=== PATIENT | male | born 1935 | race Caucasian/White ===

== ENCOUNTER → 2016-06-15 | Outpatient (CLI) | payer OTHER ==
[~2016-06-15] MED LIST: ACET-1222 PO; ACET-1311 PO; ASPI81TA28 PO; CARV12.52 PO; CARV25TA2 PO; CETI10TA84 PO; CNT PO; CYM20 PO; DEXT30TA7 PO; DULO-24 PO; FENO145T26 PO; FINA5TAB PO; IMD/2 PO; KETO200T PO; LEVO-366 PO; LTRCR30 TOP; MULTTAB58 PO; NEOMOIN2 TOP; NTRGSL/4 UT; PRD10 PO; SDMC1 PO; SERT50TA PO; TAMS0.4C38 PO; TRAM-10 PO; ULT50X PO; VTMD1000 PO; WARF1TAB6 PO; WARF2TAB8 PO; WARF3TAB PO; [UNRECOGNIZED DRUG - CODE] TOP
[2016-06-15 15:35] LABS: URINE APPEARANCE TURBID (CLEAR); URINE BILIRUBIN NEG (NEG); URINE COLOR YELLOW; URINE EPITHELIAL CELL AUTO 20-30 /lpf (0-5); URINE NITRITE NEG (NEG); URINE PH 5.5 (4.5-7.5); URINE SPECIFIC GRAVITY 1.015 (1.000-1.030); UROBILINOGEN NEG (NEG)
[2016-06-15 15:40] LABS: MANUAL MICROSCOPIC REQUIRED? NO; REVIEW REQ? YES
== END | disposition home or self-care (01) ==
LOC: C.LABOUTLO 14:11
PROVIDERS: ATTEND Internal Medicine Critical Care Medicine
DX: R41.0 Disorientation, unspecified (principal)

== ENCOUNTER → 2016-06-19 | Outpatient (CLI) | payer OTHER | END | disposition home or self-care (01) | LOC: C.LABOUTLO 09:28 | PROVIDERS: ATTEND Internal Medicine Critical Care Medicine | DX: R41.82 Altered mental status, unspecified (principal) ==

== ENCOUNTER → 2016-06-20 | Outpatient (CLI) | payer OTHER ==
[2016-06-20 10:32] LABS: BASO % 0.5 %; BASO ABS # 0.03 K/uL (0-0.2); COMPLETE YES; EOS % 4.9 %; IG% 0.2 %; LYMPH % 33.8 %; LYMPH ABS # 2.19 K/uL (1.2-3.4); MEAN CELL VOLUME 87.2 fL (80-100); MEAN CORPUSCULAR HEMOGLOBIN 28.8 pg (25-34); MEAN PLATELET VOLUME 10.4 fL (7.4-10.4); MONO % 13.4 %; NEUT % 47.2 %; PLATELET COUNT 309 K/uL (130-400); RED BLOOD COUNT 3.44 M/uL (4.7-6.1); WHITE BLOOD COUNT 6.48 K/uL (4.8-10.8)
[2016-06-20 10:39] LABS: BLOOD UREA NITROGEN 30 mg/dl (7-18); BUN/CREATININE RATIO 18.7 (10-20); CALCIUM 8.4 mg/dl (8.5-10.1); CARBON DIOXIDE 22 mmol/L (21-32); CHLORIDE 102 mmol/L (98-107); GLUCOSE 88 mg/dl (70-99); POTASSIUM 4.1 mmol/L (3.5-5.1); SODIUM 134 mmol/L (136-145)
[2016-06-20 10:49] LABS: PROTHROMBIN TIME (PATIENT) 58.3 SECONDS (9.0-12.0)
[2016-06-20 11:28] LABS: INR 5.1 (0.9-1.1)
--- NOTE | 2016-06-26 13:58 | CODING QUERY NO DIAGNOSIS ---
TREATMENT RENDERED WITHOUT A DIAGNOSIS 33 To promote full compliance with coding requirements relating to patient care, physician participation is requested in all cases of building supervisor uncertainty. Please assist us with providing a diagnosis/symptom for the test(s) below: A diagnosis/symptom was not documented on your Order. A valid diagnosis/symptom is required to bill all insurances. Please remember that we are unable to code a diagnosis of rule out, probable, possible, questionable, or suspected. DOS 06/20/16 Tests that require a diagnosis: * PARTIAL RENAL PROFILE DIAGNOSIS: * CBC W/AUTO DIFF DIAGNOSIS: * PT/INR DIAGNOSIS: Provider Signature: Date: Thank you Cammy Badillo [employer] [facility] Once completed, please kindly fax back to [phone] For questions please call [phone]
== END | disposition home or self-care (01) ==
LOC: C.LABOUTLO 09:58
PROVIDERS: ATTEND Internal Medicine Critical Care Medicine
DX: Z00.00 Encounter for general adult medical examination without abnormal findings (principal)

== ENCOUNTER → 2016-06-26 | Outpatient (CLI) | payer OTHER ==
[2016-06-26 10:20] LABS: INR 3.1 (0.9-1.1)
--- NOTE | 2016-06-29 11:23 | CODING QUERY NO DIAGNOSIS ---
: 1933 TREATMENT RENDERED WITHOUT A DIAGNOSIS To promote full compliance with coding requirements relating to patient care, physician participation is requested in all cases of outreach associate uncertainty. Please assist us with providing a diagnosis/symptom for the test(s) below: A diagnosis/symptom was not documented on your Order. A valid diagnosis/symptom is required to bill all insurances. Please remember that we are unable to code a diagnosis of rule out, probable, possible, questionable, or suspected. Tests that require a diagnosis: * PROTHROMBIN TIME PRO DOS: 06/26/16 DIAGNOSIS: Provider Signature: Date: Thank you Tatiana Woodard [employer] [facility] Once completed, please kindly fax back to [phone] For questions please call [phone]
== END | disposition home or self-care (01) ==
LOC: C.LABOUTLO 09:44
PROVIDERS: ATTEND Internal Medicine Critical Care Medicine
DX: Z86.718 Personal history of other venous thrombosis and embolism (principal)

== ENCOUNTER → 2016-06-28 | Outpatient (CLI) | payer OTHER ==
--- NOTE | 2016-07-02 07:16 | CODING QUERY NO DIAGNOSIS ---
: 1935 TREATMENT RENDERED WITHOUT A DIAGNOSIS To promote full compliance with coding requirements relating to patient care, physician participation is requested in all cases of wage analyst uncertainty. Please assist us with providing a diagnosis/symptom for the test(s) below: A diagnosis/symptom was not documented on your Order. A valid diagnosis/symptom is required to bill all insurances. Please remember that we are unable to code a diagnosis of rule out, probable, possible, questionable, or suspected. Tests that require a diagnosis: * URINE CULTURE CLEAN DOS: 06/28/16 DIAGNOSIS: Provider Signature: Date: Thank you Tatiana Woodard [employer] Information Management Once completed, please kindly fax back to [phone] For questions please call [phone]
== END | disposition home or self-care (01) ==
LOC: C.LABOUTLO 14:33
PROVIDERS: ATTEND Internal Medicine Critical Care Medicine
DX: R30.0 Dysuria (principal)

== ENCOUNTER → 2016-07-02 | Outpatient (CLI) | payer OTHER ==
[2016-07-02 10:05] LABS: PROTHROMBIN TIME (PATIENT) 22.3 SECONDS (9.0-12.0)
--- NOTE | 2016-07-05 13:34 | CODING QUERY NO DIAGNOSIS ---
TREATMENT RENDERED WITHOUT A DIAGNOSIS To promote full compliance with coding requirements relating to patient care, physician participation is requested in all cases of associate director of nursing uncertainty. Please assist us with providing a diagnosis/symptom for the test(s) below: A diagnosis/symptom was not documented on your Order. A valid diagnosis/symptom is required to bill all insurances. Please remember that we are unable to code a diagnosis of rule out, probable, possible, questionable, or suspected. Tests that require a diagnosis: DOS 07/02 * PTINR DIAGNOSIS: Provider Signature: Date: Thank you Zoë Caraballo [facility] Information [facility] Once completed, please kindly fax back to [phone] For questions please call [phone]
== END | disposition home or self-care (01) ==
LOC: C.LABOUTLO 09:25
PROVIDERS: ATTEND Internal Medicine Critical Care Medicine
DX: Z86.718 Personal history of other venous thrombosis and embolism (principal)

== ENCOUNTER → 2016-07-16 | Outpatient (CLI) | payer OTHER ==
[2016-07-16 09:52] LABS: BASO % 1.1 %; BASO ABS # 0.07 K/uL (0-0.2); COMPLETE YES; HEMATOCRIT 29.5 % (42-52); IG% 0.2 %; LYMPH % 35.7 %; LYMPH ABS # 2.24 K/uL (1.2-3.4); MEAN CELL VOLUME 88.9 fL (80-100); MEAN CORPUSCULAR HEMOGLOBIN 29.2 pg (25-34); MEAN CORPUSCULAR HGB CONC 32.9 g/dl (32-36); MEAN PLATELET VOLUME 10.8 fL (7.4-10.4); MONO % 10.7 %; NEUT % 45.3 %; PLATELET COUNT 273 K/uL (130-400); RED BLOOD COUNT 3.32 M/uL (4.7-6.1); WHITE BLOOD COUNT 6.27 K/uL (4.8-10.8)
[2016-07-16 10:14] LABS: BLOOD UREA NITROGEN 18 mg/dl (7-18); BUN/CREATININE RATIO 14.6 (10-20); CALCIUM 8.4 mg/dl (8.5-10.1); CARBON DIOXIDE 23 mmol/L (21-32); CHLORIDE 108 mmol/L (98-107); GLUCOSE 84 mg/dl (70-99); POTASSIUM 4.3 mmol/L (3.5-5.1); SODIUM 140 mmol/L (136-145)
[2016-07-16 10:17] LABS: TOTAL IRON BINDING CAPACITY 293 mcg/dl (250-450)
[2016-07-16 10:50] LABS: URINE APPEARANCE CLEAR (CLEAR); URINE BILIRUBIN NEG (NEG); URINE COLOR YELLOW; URINE NITRITE NEG (NEG); URINE PH 5.5 (4.5-7.5); URINE SPECIFIC GRAVITY 1.015 (1.000-1.030); UROBILINOGEN NEG (NEG)
[2016-07-16 11:00] LABS: MANUAL MICROSCOPIC REQUIRED? NO; REVIEW REQ? NO
[2016-07-16 11:22] LABS: URINE PROTIEN/CREAT RATIO 0.2 (0-0.2); URINE TOTAL PROTEIN 14.5 mg/dl (0-11.9)
== END | disposition home or self-care (01) ==
LOC: C.LABOUTLO 08:59
PROVIDERS: ATTEND Internal Medicine Nephrology
DX: N39.0 Urinary tract infection, site not specified (principal); I10 Essential (primary) hypertension; N18.3 Chronic kidney disease, stage 3 (moderate); E87.1 Hypo-osmolality and hyponatremia

== ENCOUNTER → 2016-07-24 | Outpatient (CLI) | payer OTHER ==
[2016-07-24 10:29] LABS: INR 1.5 (0.9-1.1); PROTHROMBIN TIME (PATIENT) 15.8 SECONDS (9.0-12.0)
== END | disposition home or self-care (01) ==
LOC: C.LABOUTLO 09:34
PROVIDERS: ATTEND Internal Medicine Critical Care Medicine
DX: I51.9 Heart disease, unspecified (principal)

== ENCOUNTER → 2016-07-31 | Outpatient (CLI) | payer OTHER ==
[2016-07-31 10:01] LABS: BLOOD UREA NITROGEN 22 mg/dl (7-18); BUN/CREATININE RATIO 15.6 (10-20); CALCIUM 8.5 mg/dl (8.5-10.1); CARBON DIOXIDE 25 mmol/L (21-32); CHLORIDE 104 mmol/L (98-107); GLUCOSE 88 mg/dl (70-99); POTASSIUM 4.3 mmol/L (3.5-5.1); SODIUM 138 mmol/L (136-145)
[2016-07-31 10:03] LABS: INR 1.5 (0.9-1.1); PROTHROMBIN TIME (PATIENT) 16.4 SECONDS (9.0-12.0)
== END | disposition home or self-care (01) ==
LOC: C.LABOUTLO 09:16
PROVIDERS: ATTEND Internal Medicine Critical Care Medicine
DX: I51.9 Heart disease, unspecified (principal)

== ENCOUNTER → 2016-08-09 | Outpatient (CLI) | payer OTHER ==
[2016-08-09 10:15] LABS: INR 2.4 (0.9-1.1); PROTHROMBIN TIME (PATIENT) 26.8 SECONDS (9.0-12.0)
== END ==
LOC: C.LABOUTLO 09:21
PROVIDERS: ATTEND Nurse Practitioner
DX: I48.91 Unspecified atrial fibrillation (principal)

== ENCOUNTER → 2016-08-22 | Outpatient (CLI) | payer OTHER ==
[2016-08-22 10:32] LABS: INR 3.3 (0.9-1.1); PROTHROMBIN TIME (PATIENT) 37.1 SECONDS (9.0-12.0)
== END | disposition home or self-care (01) ==
LOC: C.LABOUTLO 10:07
PROVIDERS: ATTEND Internal Medicine Critical Care Medicine
DX: I48.91 Unspecified atrial fibrillation (principal)

== ENCOUNTER → 2016-08-28 | Outpatient (CLI) | payer OTHER ==
[~2016-08-28] MED LIST changes: -NEOMOIN2 TOP; +NEOMOIN3 TOP
[2016-08-28 14:20] LABS: URINE APPEARANCE CLEAR (CLEAR); URINE BILIRUBIN NEG (NEG); URINE COLOR YELLOW; URINE NITRITE NEG (NEG); URINE SPECIFIC GRAVITY 1.016 (1.000-1.030); UROBILINOGEN NEG (NEG)
[2016-08-28 14:31] LABS: MANUAL MICROSCOPIC REQUIRED? NO; REVIEW REQ? NO
--- NOTE | 2016-08-30 12:34 | CODING QUERY NO DIAGNOSIS ---
TREATMENT RENDERED WITHOUT A DIAGNOSIS To promote full compliance with coding requirements relating to patient care, physician participation is requested in all cases of wire straightener uncertainty. Please assist us with providing a diagnosis/symptom for the test(s) below: A diagnosis/symptom was not documented on your Order. A valid diagnosis/symptom is required to bill all insurances. Please remember that we are unable to code a diagnosis of rule out, probable, possible, questionable, or suspected. Tests that require a diagnosis: DOS 08/28 * Urine Culture DIAGNOSIS: Provider Signature: Date: Thank you Zoë Caraballo [facility] Information Management Once completed, please kindly fax back to [phone] For questions please call [phone]
== END | disposition home or self-care (01) ==
LOC: C.LABOUTLO 14:01
DX: Z76.89 Persons encountering health services in other specified circumstances (principal)

== ENCOUNTER → 2016-09-06 | Outpatient (CLI) | payer OTHER ==
[~2016-09-06] MED LIST changes: +NEOMOIN2 TOP; -NEOMOIN3 TOP
[2016-09-06 10:34] LABS: INR 2.5 (0.9-1.1); PROTHROMBIN TIME (PATIENT) 27.4 SECONDS (9.0-12.0)
== END | disposition home or self-care (01) ==
LOC: C.LABOUTLO 09:06
PROVIDERS: ATTEND Internal Medicine Critical Care Medicine
DX: I48.91 Unspecified atrial fibrillation (principal)

== ENCOUNTER → 2016-09-13 | Outpatient (CLI) | payer OTHER ==
[~2016-09-13] MED LIST changes: -NEOMOIN2 TOP; +NEOMOIN3 TOP
[2016-09-13 09:33] LABS: HEMATOCRIT 32.9 % (42-52); MEAN CELL VOLUME 90.1 fL (80-100); MEAN CORPUSCULAR HEMOGLOBIN 30.4 pg (25-34); MEAN CORPUSCULAR HGB CONC 33.7 g/dl (32-36); MEAN PLATELET VOLUME 10.6 fL (7.4-10.4); PLATELET COUNT 261 K/uL (130-400); RED BLOOD COUNT 3.65 M/uL (4.7-6.1); WHITE BLOOD COUNT 4.75 K/uL (4.8-10.8)
[2016-09-13 09:43] LABS: BLOOD UREA NITROGEN 35 mg/dl (7-18); BUN/CREATININE RATIO 22.1 (10-20); CALCIUM 8.9 mg/dl (8.5-10.1); CARBON DIOXIDE 25 mmol/L (21-32); CHLORIDE 105 mmol/L (98-107); GLUCOSE 89 mg/dl (70-99); POTASSIUM 5.2 mmol/L (3.5-5.1); SODIUM 136 mmol/L (136-145)
== END | disposition home or self-care (01) ==
LOC: C.LABOUTLO 09:13
PROVIDERS: ATTEND Internal Medicine Cardiovascular Disease
DX: D64.9 Anemia, unspecified (principal); N28.9 Disorder of kidney and ureter, unspecified

== ENCOUNTER → 2016-10-08 | Outpatient (CLI) | payer OTHER ==
[2016-10-08 11:35] LABS: INR 2.5 (0.9-1.1); PROTHROMBIN TIME (PATIENT) 28.2 SECONDS (9.0-12.0)
== END ==
LOC: C.LABOUTLO 10:32
PROVIDERS: ATTEND Internal Medicine Critical Care Medicine
DX: I48.91 Unspecified atrial fibrillation (principal)

== ENCOUNTER → 2016-11-20 | Outpatient (CLI) | payer OTHER ==
[2016-11-20 11:06] LABS: INR 1.4 (0.9-1.1); PROTHROMBIN TIME (PATIENT) 14.9 SECONDS (9.0-12.0)
== END | disposition home or self-care (01) ==
LOC: C.LABOUTLO 09:22
PROVIDERS: ATTEND Internal Medicine
DX: I48.91 Unspecified atrial fibrillation (principal)

== ENCOUNTER → 2016-11-27 | Outpatient (CLI) | payer OTHER ==
[~2016-11-27] MED LIST changes: +NEOMOIN2 TOP; -NEOMOIN3 TOP
[2016-11-27 11:08] LABS: INR 1.7 (0.9-1.1); PROTHROMBIN TIME (PATIENT) 18.2 SECONDS (9.0-12.0)
== END | disposition home or self-care (01) ==
LOC: C.LABOUTLO 09:26
PROVIDERS: ATTEND Internal Medicine Cardiovascular Disease
DX: I48.91 Unspecified atrial fibrillation (principal)

== ENCOUNTER → 2016-12-03 | Outpatient (CLI) | payer OTHER ==
[~2016-12-03] MED LIST changes: -NEOMOIN2 TOP; +NEOMOIN3 TOP
[2016-12-03 11:00] LABS: INR 1.9 (0.9-1.1); PROTHROMBIN TIME (PATIENT) 21.3 SECONDS (9.0-12.0)
== END | disposition home or self-care (01) ==
LOC: C.LABOUTLO 07:58
PROVIDERS: ATTEND Internal Medicine Cardiovascular Disease
DX: I48.91 Unspecified atrial fibrillation (principal); Z79.01 Long term (current) use of anticoagulants

== ENCOUNTER → 2016-12-13 | Outpatient (CLI) | payer OTHER ==
[~2016-12-13] MED LIST changes: +NEOMOIN2 TOP; -NEOMOIN3 TOP
[2016-12-13 09:29] LABS: INR 2.2 (0.9-1.1); PROTHROMBIN TIME (PATIENT) 24.1 SECONDS (9.0-12.0)
== END | disposition home or self-care (01) ==
LOC: C.LABOUTLO 08:21
PROVIDERS: ATTEND Internal Medicine Cardiovascular Disease
DX: I48.91 Unspecified atrial fibrillation (principal)

== ENCOUNTER → 2016-12-24 | Outpatient (CLI) | payer OTHER ==
[2016-12-24 09:36] LABS: INR 3.3 (0.9-1.1); PROTHROMBIN TIME (PATIENT) 37.6 SECONDS (9.0-12.0)
== END | disposition home or self-care (01) ==
LOC: C.LABOUTLO 08:36
PROVIDERS: ATTEND Internal Medicine Cardiovascular Disease
DX: I48.91 Unspecified atrial fibrillation (principal)

== ENCOUNTER → 2017-01-03 | Outpatient (CLI) | payer OTHER ==
[2017-01-03 09:27] LABS: INR 2.9 (0.9-1.1); PROTHROMBIN TIME (PATIENT) 32.8 SECONDS (9.0-12.0)
== END | disposition home or self-care (01) ==
LOC: C.LABOUTLO 08:46
PROVIDERS: ATTEND Internal Medicine Cardiovascular Disease
DX: Z51.81 Encounter for therapeutic drug level monitoring (principal); Z79.01 Long term (current) use of anticoagulants; I48.91 Unspecified atrial fibrillation

== ENCOUNTER → 2017-01-16 | Outpatient (CLI) | payer OTHER ==
[2017-01-16 10:37] LABS: INR 2.7 (0.9-1.1); PROTHROMBIN TIME (PATIENT) 30.1 SECONDS (9.0-12.0)
== END | disposition home or self-care (01) ==
LOC: C.LABOUTLO 09:27
PROVIDERS: ATTEND Internal Medicine Cardiovascular Disease
DX: I48.91 Unspecified atrial fibrillation (principal)

== ENCOUNTER → 2017-02-05 | Outpatient (CLI) | payer OTHER ==
[2017-02-05 13:14] LABS: INR 2.6 (0.9-1.1); PROTHROMBIN TIME (PATIENT) 28.8 SECONDS (9.0-12.0)
== END | disposition home or self-care (01) ==
LOC: C.LABOUTLO 12:42
PROVIDERS: ATTEND Internal Medicine
DX: I48.91 Unspecified atrial fibrillation (principal)

== ENCOUNTER 2017-02-20 09:53 | Emergency (ER) | payer OTHER ==
[~2017-02-20] VITALS: Ht 172.7 cm; Wt 87.0 kg
[~2017-02-20 09:53] MED LIST changes: -CARV12.52 PO; -DEXT30TA7 PO; -DULO-24 PO; -LEVO-366 PO; -MULTTAB58 PO; -WARF1TAB6 PO; -WARF2TAB8 PO
[2017-02-20 09:58] VITALS: TEMP 36.9; Ht 172.7 cm; Wt 87.0 kg
[2017-02-20 10:22] VITALS: O2SAT 91
[2017-02-20 10:31] LABS: BASO % 1.1 %; BASO ABS # 0.06 K/uL (0-0.2); COMPLETE YES; EOS % 12.8 %; HEMATOCRIT 40.1 % (42-52); IG% 0.2 %; LYMPH % 26.7 %; MEAN CELL VOLUME 88.7 fL (80-100); MEAN CORPUSCULAR HEMOGLOBIN 30.1 pg (25-34); MEAN CORPUSCULAR HGB CONC 33.9 g/dl (32-36); MEAN PLATELET VOLUME 10.1 fL (7.4-10.4); MONO % 9.7 %; NEUT % 49.5 %; PLATELET COUNT 280 K/uL (130-400); RED BLOOD COUNT 4.52 M/uL (4.7-6.1); WHITE BLOOD COUNT 5.24 K/uL (4.8-10.8)
[2017-02-20 10:51] LABS: BUN/CREATININE RATIO 17.1 (10-20); CALCIUM 8.7 mg/dl (8.5-10.1); CREATININE 1.8 mg/dl (0.60-1.40); POTASSIUM 4.3 mmol/L (3.5-5.1)
[2017-02-20 10:54] LABS: ALB/GLOB RATIO 0.8 (0.9-2)
[2017-02-20] MEDS ORDERED: SODIUM CHLORIDE 0.9% 500ML 500 ML IV STA (11:06)
[2017-02-20] MEDS ORDERED: WARF2TAB8 PO (11:25)
[2017-02-20] MEDS ORDERED: CARV12.52 PO ×2 (11:25)
[2017-02-20] MEDS ORDERED: MULTTAB58 PO (11:25)
[2017-02-20] MEDS ORDERED: WARF1TAB6 PO (11:25)
[2017-02-20] MEDS ORDERED: DEXT30TA7 PO (11:25)
--- NOTE | 2017-02-20 11:34 | DIAGNOSTIC IMAGING REPORT ---
CHEST 2 VIEWS ROUTINE CLINICAL HISTORY: weakness, cough COMPARISON STUDY: No previous studies for comparison. FINDINGS: The heart is normal in size. There is no failure. There is no focal pulmonary consolidation. Coronary artery calcifications are suspected. There are few scattered calcified granulomata present. No pleural effusions are evident.[ IMPRESSION: No active disease in the chest. Electronically signed by: Aman Ceja M.D. 02/20/2017 11:32 AM Dictated Date/Time: 02/20/2017 11:32 AM
[2017-02-20 11:43] LABS: MAGNESIUM 1.9 mg/dl (1.8-2.4)
[2017-02-20] MEDS ORDERED: CEFTRIAXONE SOD INJ 1 GM ADDVIAL IV STA (12:14)
--- NOTE | 2017-02-20 12:22 | EMERGENCY ROOM VISIT NOTE ---
History Report prepared by Moe: Marii Plunkett Under the Supervision of: Dr. Georgi Carlson M.D. First contact with patient: 10:59 Chief Complaint: RESPIRATORY PROBLEMS Stated Complaint: RESPIRATORY PROBLEMS Nursing Triage Summary: triage note: Pt resides at [facility]. pt reports increased fatigue. pt reports generalized weakness and cough x 4 days. son reports "he had a low energy spell about 7 years ago where he ended up having a blockage issue and needed a stent." History of Present Illness The patient is an 81 year old white male with a past medical history of CKD, chronic bronchitis, 2 stents who presents to the ED with a cc of persistent generalized weakness beginning 4 days ago. He notes that he felt this way prior to having his 2nd stent placed 7 years ago. Positive fatigue, productive cough. Negative chest pain, SOB, leg swelling, nausea, vomiting, urinary symptoms. He denies any recent tick bites. He follows with Dr. Lim of cardiology. He denies any sick contacts or recent antibiotics. Source of History: patient Onset: 4 days ago Position: other (global) Quality: other (weakness) Timing: other (persistent) Associated Symptoms: + cough, + fatigue, No chest pain, No SOB, No nausea, No vomiting, No urinary symptoms Review of Systems See HPI for pertinent positives and negatives. A total of ten systems were reviewed and were otherwise negative. Past Medical & Surgical Medical Problems: (1) Chronic kidney disease (2) H/O blood clots (3) Hip fracture (4) Prostate cancer Surgical Problems: (1) History of coronary artery stent placement Family History Patient reports no known family medical history. Social History Smoking Status: Never Smoker Drug Use: none Marital Status: Housing Status: alf Occupation Status: retired Current/Historical Medications Scheduled Aspirin (Aspirin Ec), 81 MG PO DAILY Carvedilol (Coreg), 6.25 MG PO QPM Carvedilol (Coreg), 12.5 MG PO QAM Cetirizine (Zyrtec), 10 MG PO DAILY Cholecalciferol (Vitamin D3), 2,000 INTER.UNIT PO QAM Dextromethorphan-Guaifenesin (Mucinex Dm), 1 TAB PO Q12 Duloxetine HCl (Duloxetine HCl), 20 MG PO QAM Fenofibrate (Tricor), 145 MG PO DAILY Finasteride (Proscar), 5 MG PO QAM Ketoconazole (Nizoral), 200 MG PO TID Levofloxacin (Levaquin), 750 MG PO DAILY Multiple Vitamin (Multivitamin), 1 TAB PO DAILY Tamsulosin Hcl (Flomax), 0.4 MG PO HS Warfarin Sod (Jantoven), 1 MG PO 3XWK Warfarin Sod (Jantoven), 2 MG PO DAILY Allergies Coded Allergies: No Known Allergies (Unverified , 03/28/16) Physical Exam Vital Signs Date Time Temp Pulse Resp B/P (MAP) Pulse Ox O2 Delivery O2 Flow Rate FiO2 02/20/17 16:20 55 20 167/80 96 02/20/17 14:23 51 96 02/20/17 13:53 54 25 93 02/20/17 13:36 51 02/20/17 13:23 63 18 90 02/20/17 13:01 167/80 02/20/17 12:53 52 95 02/20/17 12:32 219/120 02/20/17 12:07 139/81 02/20/17 12:07 56 20 139/81 96 Room Air 02/20/17 11:10 55 20 130/71 92 Room Air 02/20/17 11:01 130/71 02/20/17 10:53 56 19 91 02/20/17 10:31 132/66 02/20/17 10:23 61 19 91 02/20/17 10:22 91 Room Air 02/20/17 10:21 61 02/20/17 10:14 131/68 02/20/17 09:58 36.9 65 20 112/66 96 Room Air 02/20/17 09:57 92 Room Air Physical Exam GENERAL: Awake, alert, well-appearing, NAD HENT: Normocephalic, atraumatic. EYES: Normal conjunctiva. Sclera non-icteric. NECK: Supple. No nuchal rigidity. FROM. RESPIRATORY: CTAB, no rhonchi, wheezing, crackles CARDIAC: RRR, no MRG ABDOMEN: Soft, NTND, BS+ MSK: No chest wall TTP, no LE edema NEURO: GCS 15, CN 2-12 intact, moves all 4s on command SKIN: No rash or jaundice noted. Medical Decision & Procedures ER Provider Diagnostic Interpretation: Radiology results as stated below per my review and radiologist interpretation: CHEST 2 VIEWS ROUTINE CLINICAL HISTORY: weakness, cough COMPARISON STUDY: No previous studies for comparison. FINDINGS: The heart is normal in size. There is no failure. There is no focal pulmonary consolidation. Coronary artery calcifications are suspected. There are few scattered calcified granulomata present. No pleural effusions are evident.[ IMPRESSION: No active disease in the chest. Electronically signed by: Aman Ceja M.D. 02/20/2017 11:32 AM Dictated Date/Time: 02/20/2017 11:32 AM Laboratory Results 02/20/17 10:15 Red Blood Count 4.52, Mean Corpuscular Volume 88.7, Mean Corpuscular Hemoglobin 30.1, Mean Corpuscular Hemoglobin Concent 33.9, Mean Platelet Volume 10.1, Neutrophils (%) (Auto) 49.5, Lymphocytes (%) (Auto) 26.7, Monocytes (%) (Auto) 9.7, Eosinophils (%) (Auto) 12.8, Basophils (%) (Auto) 1.1, Neutrophils # (Auto ) 2.59, Lymphocytes # (Auto) 1.40, Monocytes # (Auto) 0.51, Eosinophils # (Auto ) 0.67, Basophils # (Auto) 0.06 02/20/17 10:15 Test 02/20/17 10:15 02/20/17 12:30 02/20/17 13:02 White Blood Count 5.24 K/uL (4.8-10.8) Red Blood Count 4.52 M/uL (4.7-6.1) Hemoglobin 13.6 g/dL (14.0-18.0) Hematocrit 40.1 % (42-52) Mean Corpuscular Volume 88.7 fL (80-100) Mean Corpuscular Hemoglobin 30.1 pg (25-34) Mean Corpuscular Hemoglobin Concent 33.9 g/dl (32-36) Platelet Count 280 K/uL (130-400) Mean Platelet Volume 10.1 fL (7.4-10.4) Neutrophils (%) (Auto) 49.5 % Lymphocytes (%) (Auto) 26.7 % Monocytes (%) (Auto) 9.7 % Eosinophils (%) (Auto) 12.8 % Basophils (%) (Auto) 1.1 % Neutrophils # (Auto) 2.59 K/uL (1.4-6.5) Lymphocytes # (Auto) 1.40 K/uL (1.2-3.4) Monocytes # (Auto) 0.51 K/uL (0.11-0.59) Eosinophils # (Auto) 0.67 K/uL (0-0.5) Basophils # (Auto) 0.06 K/uL (0-0.2) RDW Standard Deviation 46.8 fL (36.4-46.3) RDW Coefficient of Variation 14.3 % (11.5-14.5) Immature Granulocyte % (Auto) 0.2 % Immature Granulocyte # (Auto) 0.01 K/uL (0.00-0.02) Anion Gap 7.0 mmol/L (3-11) Est Creatinine Clear Calc Drug Dose 33.4 ml/min Estimated GFR () 39.5 Estimated GFR (Non- 34.0 BUN/Creatinine Ratio 17.1 (10-20) Calcium Level 8.7 mg/dl (8.5-10.1) Phosphorus Level 3.0 mg/dl (2.5-4.9) Magnesium Level 1.9 mg/dl (1.8-2.4) Total Bilirubin 0.6 mg/dl (0.2-1) Aspartate Amino Transf (AST/SGOT) 113 U/L (15-37) Alanine Aminotransferase (ALT/SGPT) 73 U/L (12-78) Alkaline Phosphatase 119 U/L (45-117) Troponin I < 0.015 ng/ml (0-0.045) Total Protein 7.2 gm/dl (6.4-8.2) Albumin 3.1 gm/dl (3.4-5.0) Globulin 4.1 gm/dl (2.5-4.0) Albumin/Globulin Ratio 0.8 (0.9-2) Thyroid Stimulating Hormone (TSH) 2.080 uIu/ml (0.300-4.500) Urine Color DK YELLOW Urine Appearance CLEAR (CLEAR) Urine pH 5.0 (4.5-7.5) Urine Specific [place] 1.017 (1.000-1.030) Urine Protein NEG (NEG) Urine Glucose (UA) NEG (NEG) Urine Ketones NEG (NEG) Urine Occult Blood NEG (NEG) Urine Nitrite NEG (NEG) Urine Bilirubin NEG (NEG) Urine Urobilinogen NEG (NEG) Urine Leukocyte Esterase TRACE (NEG) Urine WBC (Auto) 5-10 /hpf (0-5) Urine RBC (Auto) 0-4 /hpf (0-4) Urine Hyaline Casts (Auto) 1-5 /lpf (0-5) Urine Epithelial Cells (Auto) 10-20 /lpf (0-5) Urine Bacteria (Auto) NEG (NEG) Prothrombin Time > 100.0 SECONDS Prothromb Time International Ratio > 8.0 (0.9-1.1) Activated Partial Thromboplast Time 76.2 SECONDS (21.0-31.0) Partial Thromboplastin Ratio 2.9 Laboratory results reviewed by me Medications Administered Medications (Trade) Dose Ordered Sig/Ashley Route Start Time Stop Time Status Last Admin Dose Admin Sodium Chloride 500 ml @ 500 mls/hr Q1H STAT IV 02/20/17 11:06 02/20/17 12:05 DC 02/20/17 11:06 500 MLS/HR Phytonadione (Mephyton Tab) 2.5 mg NOW STAT PO 02/20/17 14:01 02/20/17 14:02 DC 02/20/17 14:27 2.5 MG Levofloxacin (Levaquin Tab) 750 mg ONE STAT PO 02/20/17 15:17 02/20/17 15:18 DC 02/20/17 15:47 750 MG ECG Indication: weakness Rate (beats per minute): 60 Rhythm: sinus with SA Findings: 1st degree AV block, other (normal QRS and QTC, questionable T wave flattening in lead 3, no other STS changes or TWI) Comparison ECG Date: no prior available ED Course 1113: The patient was evaluated in room B4A. A complete history and physical exam was performed. 1332: I reevaluated the patient. I updated them on the results. 1355: I discussed the patient's case with Dr. Sparks, [facility] cardiology. He is in agreement with the plan. 1412: I reevaluated the patient. I updated him on the results. 1520: I reevaluated the patient. I discussed results and discharge instructions : he verbalized understanding and agreement. The patient is ready for discharge. Medical Decision Differential diagnosis: Etiologies such as metabolic, infection, hypo/hyperglycemia, electrolyte abnormalities, cardiac sources, intracerebral event, toxicologic, neurologic, as well as others were entertained. The patient is an 81 year old white male with a past medical history of CKD, chronic bronchitis, 2 stents who presents to the ED with a cc of persistent generalized weakness beginning 4 days ago. Patient was seen and evaluated at the bedside. Patient has had some chronic cough with productive sputum. Patient does take blood pain medications for blood clots in the past. Patient is a patient of Dr. Lim. Patient had blood work that was completed which showed that he had good platelet Counselor hit elevated INR PTT and PT. Patient did have a recent change in that he is having his Coumadin checked monthly. Patient was given 2 half milligrams by mouth vitamin K after speaking with Dr. Sparks part of Dr. Lim's cardiology group. Rest the patient's blood work is fairly unremarkable. Patient's UA while did have some bacteria is likely a contaminant given the epithelial cells and lack of any other complaints. Patient was feeling mildly improved. Patient does have inpatient rehabilitation and physical therapy [facility] I did speak with our catalytic case operator who spoke with the care facility to hold the Coumadin tonight and arrange follow-up blood work. Patient does have a follow- up appointment with Dr. Lim on Saturday. Patient was given strict follow-up, discharge, return precautions. Patient reported care patient was safely discharged home. Medication Reconcilliation Current Medication List: was personally reviewed by me Blood Pressure Screening Patient's blood pressure: Elevated blood pressure Blood pressure disposition: Referred to PCP Consults Time Called: 1345 Consulting Physician: Dr. Sparks [facility] cardiology Returned Call: 1355 I discussed the patient's case with him. He is in agreement with the plan. Impression Primary Impression: Elevated INR Additional Impressions: Generalized weakness Chronic bronchitis Scribe Attestation The scribe's documentation has been prepared under my direction and personally reviewed by me in its entirety. I confirm that the note above accurately reflects all work, treatment, procedures, and medical decision making performed by me. Departure Information Dispostion Home / Self-Care Prescriptions Levofloxacin (Levaquin) 500 Mg Tab 750 MG PO DAILY for 5 Days, #8 TAB Prov: Georig Carlson M.D. 02/20/17 Referrals [facility] (PCP) Patient Instructions Bronchitis Chronic, Coumadin, My [facility] Additional Instructions Please return to the emergency department if you have worsening or recurrent symptoms not amenable to at-home treatment. Please call for a follow-up appointment with her primary care physician. Please take your medications as prescribed. If you have other concerns and/or complaints please feel free to also call your primary care physician's office or return the ED for further evaluation, management, and treatment. Do not take your coumadin today. Please call coumadin clinic with help of [facility] tomorrow for additional blood draws to check your coumadin levels. Keep your appt w/ Dr. Lim. You may take 600 mg Ibuprofen every 6 hours as needed for pain with food for no more than 2 consecutive days. You may take tylenol 1000mg every 6 hours as needed for pain. You may take motrin and tylenol separately or at the same time. Take tramadol for breakthrough pain. You have been examined and treated today on an emergency basis only. This is not a substitute for, or an effort to provide, complete comprehensive medical care. It is impossible to recognize and treat all injuries or illnesses in a single emergency department visit. It is therefore important that you follow up closely with [facility]. Call as soon as possible for an appointment. Thank you for your time and consideration. I look forward to speaking with you again soon. Please don't hesitate to call us if you have any questions. Problem Qualifiers Additional Impressions: Chronic bronchitis Chronic bronchitis type: mucopurulent Qualified Codes: J41.1 - Mucopurulent chronic bronchitis
[2017-02-20 12:37] LABS: PARTIAL THROMBOPLASTIN RATIO 2.9
[2017-02-20 12:45] LABS: PROTHROMBIN TIME (PATIENT) > 100.0 SECONDS (9.0-12.0)
[2017-02-20 12:46] LABS: INR > 8.0 (0.9-1.1)
[2017-02-20 13:05] LABS: URINE APPEARANCE CLEAR (CLEAR); URINE BILIRUBIN NEG (NEG); URINE COLOR DK YELLOW; URINE NITRITE NEG (NEG); URINE SPECIFIC GRAVITY 1.017 (1.000-1.030); UROBILINOGEN NEG (NEG); ZZUR CULT IF INDIC CLEAN CATCH NO
[2017-02-20 13:14] LABS: MANUAL MICROSCOPIC REQUIRED? NO; REVIEW REQ? NO
[2017-02-20 13:33] LABS: PARTIAL THROMBOPLASTIN RATIO 2.9
[2017-02-20 13:45] LABS: INR > 8.0 (0.9-1.1); PROTHROMBIN TIME (PATIENT) > 100.0 SECONDS (9.0-12.0)
[2017-02-20] MEDS ORDERED: PHYTONADIONE 5 MG TAB PO STA (14:01)
[2017-02-20] MEDS ORDERED: LEVO-366 PO (15:15)
[2017-02-20] MEDS ORDERED: LEVOFLOXACIN 750 MG TAB PO STA (15:17)
[2017-02-20 16:20] VITALS: BP 167/80; PULSE 55; O2SAT 96
[2017-02-25] MEDS ORDERED: DULO-24 PO (18:57)
== END 2017-02-20 16:20 | disposition home or self-care (01) ==
LOC: C.EDB 09:55
DX: J41.1 Mucopurulent chronic bronchitis (principal); R79.1 Abnormal coagulation profile; R53.1 Weakness; N18.9 Chronic kidney disease, unspecified; Z95.5 Presence of coronary angioplasty implant and graft; Z85.46 Personal history of malignant neoplasm of prostate; Z79.82 Long term (current) use of aspirin; Z79.01 Long term (current) use of anticoagulants; Z79.899 Other long term (current) drug therapy

== ENCOUNTER 2017-02-21 12:54 | Emergency (ER) | payer OTHER ==
[~2017-02-21] VITALS: Ht 172.7 cm; Wt 87.0 kg
[~2017-02-21 12:54] MED LIST changes: +ACET-1222 PO; +ACET-1311 PO; +CARV25TA2 PO; +CNT PO; -DULO-24 PO; +IMD/2 PO; +LTRCR30 TOP; +NEOMOIN2 TOP; +NTRGSL/4 UT; +PRD10 PO; +SDMC1 PO; +SERT50TA PO; +TRAM-10 PO; +ULT50X PO; +WARF3TAB PO; +[UNRECOGNIZED DRUG - CODE] TOP
[2017-02-21 12:56] VITALS: TEMP 36.4; Ht 172.7 cm; Wt 87.0 kg
[2017-02-21] MEDS ORDERED: PHYTONADIONE 5 MG TAB PO STA (13:17)
--- NOTE | 2017-02-21 13:24 | EMERGENCY ROOM VISIT NOTE ---
History Report prepared by Moe: Marii Plunkett Under the Supervision of: Dr. Cristi Norton D.O. First contact with patient: 13:01 Chief Complaint: ABNORMAL LABS Stated Complaint: INR/PT LEVELS TOO HIGH, SENT BY OFFICE History of Present Illness The patient is an 81 year old male who presents to the Emergency Room with complaints of persistent elevated INR starting yesterday. The patient was in the ED yesterday at which time his INR was found to be over 8. He had a K1 injection. He had a call from his doctor today and was told to present to the ED for another K1 injection. He resides at [facility]. The reason for his elevated INR is unknown. He has been feeling fatigued. He denies any bloody stools. He is on warfarin for atrial fibrillation. He was started on antibiotics yesterday for chest congestion. Source of History: patient, family Onset: yesterday Position: other (global) Symptom Intensity: greater than 8 Quality: other (elevated INR) Timing: other (persistent) Associated Symptoms: + fatigue, No hematochezia Review of Systems See HPI for pertinent positives & negatives. A total of 10 systems reviewed and were otherwise negative. Past Medical & Surgical Medical Problems: (1) Chronic kidney disease (2) H/O blood clots (3) Hip fracture (4) Prostate cancer Surgical Problems: (1) History of coronary artery stent placement Family History Patient reports no known family medical history. Social History Smoking Status: Never Smoker Drug Use: none Marital Status: Housing Status: correction Occupation Status: retired Current/Historical Medications Scheduled Aspirin (Aspirin Ec), 81 MG PO DAILY Carvedilol (Coreg), 6.25 MG PO QPM Carvedilol (Coreg), 12.5 MG PO QAM Cetirizine (Zyrtec), 10 MG PO DAILY Cholecalciferol (Vitamin D3), 2,000 INTER.UNIT PO QAM Dextromethorphan-Guaifenesin (Mucinex Dm), 1 TAB PO Q12 Duloxetine HCl (Duloxetine HCl), 20 MG PO QAM Fenofibrate (Tricor), 145 MG PO DAILY Finasteride (Proscar), 5 MG PO QAM Ketoconazole (Nizoral), 200 MG PO TID Levofloxacin (Levaquin), 750 MG PO DAILY Multiple Vitamin (Multivitamin), 1 TAB PO DAILY Tamsulosin Hcl (Flomax), 0.4 MG PO HS Warfarin Sod (Jantoven), 1 MG PO 3XWK Warfarin Sod (Jantoven), 2 MG PO DAILY Allergies Coded Allergies: No Known Allergies (Unverified , 03/28/16) Physical Exam Vital Signs Date Time Temp Pulse Resp B/P (MAP) Pulse Ox O2 Delivery O2 Flow Rate FiO2 02/21/17 13:55 89 18 153/90 98 02/21/17 12:56 36.4 46 18 120/75 98 Room Air Physical Exam CONSTITUTIONAL/VITAL SIGNS: Reviewed / noted above. GENERAL: Non-toxic in appearance. INTEGUMENTARY: Warm, dry, and [place]. HEAD: Normocephalic. EYES: without scleral icterus or trauma. ENT/OROPHARYNX: clear and moist. LYMPHADENOPATHY/NECK: Is supple without lymphadenopathy or meningismus. RESPIRATORY: Lungs clear and equal. CARDIOVASCULAR: Regular rate and rhythm. GI/ABDOMEN: Soft and nontender. No organomegaly or pulsatile mass. No rebound or guarding. Normal bowel sounds. EXTREMITIES: Warm and well perfused. BACK: No CVA tenderness. NEUROLOGICAL: Intact without focal deficits. PSYCHIATRIC: normal affect. MUSCULOSKELETAL: Normally developed with good muscle tone. Medical Decision & Procedures Medications Administered Medications (Trade) Dose Ordered Sig/Ashley Route Start Time Stop Time Status Last Admin Dose Admin Phytonadione (Mephyton Tab) 2.5 mg NOW STAT PO 02/21/17 13:17 02/21/17 13:19 DC 02/21/17 13:51 2.5 MG ED Course 1304: Previous medical records were reviewed. The patient was evaluated in room C4. A complete history and physical examination was performed. 1317: Phytonadione 2.5 mg PO. 1325: On reevaluation, the patient is resting comfortably. I discussed the results and findings with the patient and his son. They verbalized agreement of the treatment plan. He was discharged home. Medical Decision This is a 81-year-old male who was referred here for elevated INR. Yesterday he was given 2.5 mg of oral vitamin K. His INR at that time was greater than 8. Today is 6.6. The patient does not have any bleeding or clinical findings to suggest not apparent bleeding. He was given 2.5 mg of oral vitamin K. He will continue to not take his Coumadin. He was told to follow-up with the Coumadin clinic in 2 days for recheck. He is felt to be stable for discharge. Medication Reconcilliation Current Medication List: was personally reviewed by me Blood Pressure Screening Patient's blood pressure: Normal blood pressure Blood pressure disposition: Did not require urgent referral Impression Primary Impression: Elevated INR Scribe Attestation The scribe's documentation has been prepared under my direction and personally reviewed by me in its entirety. I confirm that the note above accurately reflects all work, treatment, procedures, and medical decision making performed by me. Departure Information Dispostion Home / Self-Care Referrals Moi Lim M.D. (PCP) Patient Instructions My [facility] Additional Instructions Your INR today is 6.6. You have been given 2.5 mg of vitamin K. Do not take your Coumadin today or tomorrow. Follow-up with Coumadin clinic in 2 days for recheck.
[2017-02-21 13:55] VITALS: BP 153/90; PULSE 89; O2SAT 98
[2017-02-25] MEDS ORDERED: DULO-24 PO (18:57)
== END 2017-02-21 13:57 | disposition home or self-care (01) ==
LOC: C.EDB 12:55 → C.EDC 13:57
DX: R79.9 Abnormal finding of blood chemistry, unspecified (principal); N18.9 Chronic kidney disease, unspecified; Z79.82 Long term (current) use of aspirin; Z79.01 Long term (current) use of anticoagulants

== ENCOUNTER → 2017-02-21 | Outpatient (CLI) | payer OTHER ==
[~2017-02-21] MED LIST changes: -ACET-1222 PO; -ACET-1311 PO; +CARV12.52 PO; -CARV25TA2 PO; -CNT PO; +DEXT30TA7 PO; +DULO-24 PO; -IMD/2 PO; +LEVO-366 PO; -LTRCR30 TOP; +MULTTAB58 PO; -NEOMOIN2 TOP; -NTRGSL/4 UT; -PRD10 PO; -SDMC1 PO; -SERT50TA PO; -TRAM-10 PO; -ULT50X PO; +WARF1TAB6 PO; +WARF2TAB8 PO; -WARF3TAB PO; -[UNRECOGNIZED DRUG - CODE] TOP
[2017-02-21 10:23] LABS: INR > 8.0 (0.9-1.1); PROTHROMBIN TIME (PATIENT) > 100.0 SECONDS (9.0-12.0)
== END | disposition home or self-care (01) ==
LOC: C.LABOUTLO 09:18
PROVIDERS: ATTEND Internal Medicine Cardiovascular Disease
DX: I82.5Z9 Chronic embolism and thrombosis of unspecified deep veins of unspecified distal lower extremity (principal)

== ENCOUNTER → 2017-02-22 | Outpatient (CLI) | payer OTHER ==
[~2017-02-22] MED LIST changes: -ACET-1222 PO; -ACET-1311 PO; -CARV25TA2 PO; -CNT PO; +DULO-24 PO; -IMD/2 PO; -LTRCR30 TOP; -NEOMOIN2 TOP; -NTRGSL/4 UT; -PRD10 PO; -SDMC1 PO; -SERT50TA PO; -TRAM-10 PO; -ULT50X PO; -WARF3TAB PO; -[UNRECOGNIZED DRUG - CODE] TOP
[2017-02-22 09:13] LABS: INR 3.2 (0.9-1.1); PROTHROMBIN TIME (PATIENT) 36.3 SECONDS (9.0-12.0)
== END | disposition home or self-care (01) ==
LOC: C.LABOUTLO 08:41
PROVIDERS: ATTEND Internal Medicine Cardiovascular Disease
DX: G45.9 Transient cerebral ischemic attack, unspecified (principal)

== ENCOUNTER 2017-02-25 17:47 | Inpatient (IN) | payer OTHER ==
[~2017-02-25] VITALS: Ht 172.7 cm; Wt 87.0 kg
[~2017-02-25 17:47] MED LIST changes: -DULO-24 PO
[2017-02-25] MEDS ORDERED: SODIUM CHLORIDE 0.9% 1000ML 1,000 ML IV STA (18:23)
--- NOTE | 2017-02-25 18:42 | DIAGNOSTIC IMAGING REPORT ---
CHEST ONE VIEW PORTABLE CLINICAL HISTORY: 81 years-old Male presenting with EVALUATE WEAKNESS. TECHNIQUE: Portable upright AP view of the chest was obtained. COMPARISON: 02/20/2017. FINDINGS: Atherosclerosis of aortic arch. Cardiac silhouette normal in size. Coronary artery calcification suggested. Multiple calcified granulomas suggested in the right lung, unchanged. Degenerative changes of the spine and bilateral glenohumeral joints. Upper abdomen normal. IMPRESSION: 1. No acute cardiopulmonary disease. Electronically signed by: Wilfrido Dougherty M.D. 02/25/2017 6:41 PM Dictated Date/Time: 02/25/2017 6:40 PM
--- NOTE | 2017-02-25 18:42 | EMERGENCY ROOM VISIT NOTE ---
History Report prepared by Moe: Rahel Henderson Under the Supervision of: Dr. Dougie Vázquez D.O. First contact with patient: 18:08 Chief Complaint: URINARY SYMPTOMS Stated Complaint: RENAL,BRONCHITIS,POSS PNEUMONIA Nursing Triage Summary: Pt son states patient has had a cough, Pt states it's productive, large amount , white to yellow in color, maybe some red streaks. Vomited once today. Urinary dark , son states "it looks like apple cider" Pt denies pain states "I'm just tired" History of Present Illness The patient is a 81 year old male who presents to the Emergency Room with complaints of constant fatigue beginning 11 days ago. The patient was seen in ED twice last week for similar symptoms. He notes a decreased appetite, one episode of vomiting, and a cough which his chronic for him. He notes increased sputum with his cough over the past two weeks. The patient denies any urinary symptoms or changes in bowel movements. The patient was sent from Dr. Lim's office for possible pneumonia. He was put on Levaquin when last seen in the ED. Source of History: patient Onset: 11 days ago Position: other (generalized) Quality: other (fatigue) Timing: constant Associated Symptoms: + cough, + vomiting, + fatigue, No diarrhea, No urinary symptoms Review of Systems See HPI for pertinent positives & negatives. A total of 10 systems reviewed and were otherwise negative. Past Medical & Surgical Medical Problems: (1) Chronic kidney disease (2) Fatigue (3) H/O blood clots (4) Hip fracture (5) Hyponatremia (6) Prostate cancer Surgical Problems: (1) History of coronary artery stent placement Family History Patient reports no known family medical history. no pertinent family history stated. Social History Smoking Status: Former Smoker Drug Use: none Marital Status: Housing Status: skilled nursing Occupation Status: retired Current/Historical Medications Scheduled Aspirin (Aspirin Ec), 81 MG PO DAILY Carvedilol (Coreg), 6.25 MG PO QPM Carvedilol (Coreg), 12.5 MG PO QAM Cetirizine (Zyrtec), 10 MG PO DAILY Cholecalciferol (Vitamin D3), 2,000 INTER.UNIT PO QAM Duloxetine HCl (Cymbalta), 20 MG PO DAILY Fenofibrate (Tricor), 145 MG PO DAILY Finasteride (Proscar), 5 MG PO QAM Ketoconazole (Nizoral), 200 MG PO TID Levofloxacin (Levaquin), 750 MG PO DAILY Multiple Vitamin (Multivitamin), 1 TAB PO DAILY Tamsulosin Hcl (Flomax), 0.4 MG PO HS Warfarin Sod (Jantoven), 3 MG PO Q2D Warfarin Sod (Jantoven), 2 MG PO Q2D Allergies Coded Allergies: No Known Allergies (Unverified , 02/25/17) Physical Exam Vital Signs Date Time Temp Pulse Resp B/P (MAP) Pulse Ox O2 Delivery O2 Flow Rate FiO2 02/25/17 20:37 71 18 158/72 96 Room Air 02/25/17 19:26 55 20 133/77 99 Room Air 02/25/17 19:25 58 20 133/77 55 130/76 66 84/56 02/25/17 18:44 53 02/25/17 18:37 98 Room Air 02/25/17 18:37 98 Room Air 02/25/17 18:00 36.3 56 16 128/68 98 Room Air Physical Exam GENERAL: alert, sitting up in bed, chronically ill appearing, well nourished, no distress, non-toxic EYE EXAM: normal conjunctiva, PERRL and EOM's grossly intact OROPHARYNX: no exudate, no erythema, lips, buccal mucosa, and tongue normal and mucous membranes are moist NECK: supple, no nuchal rigidity, no adenopathy, non-tender LUNGS: Clear to auscultation. Normal chest wall mechanics HEART: no murmurs, S1 normal and S2 normal ABDOMEN: abdomen soft, non-tender, normo-active bowel sounds, no masses, no rebound or guarding. BACK: Back is symmetrical on inspection and there is no deformity, no midline tenderness, no CVA tenderness. SKIN: no rashes and no bruising UPPER EXTREMITIES: upper extremities are grossly normal. LOWER EXTREMITIES: No pitting edema. NEURO EXAM: Normal sensorium, cranial nerves II-XII intact, normal speech, no weakness of arms, no weakness of legs. Medical Decision & Procedures ER Provider Diagnostic Interpretation: Radiology results as stated below per my review and the radiologist's interpretation: CHEST ONE VIEW PORTABLE FINDINGS: Atherosclerosis of aortic arch. Cardiac silhouette normal in size. Coronary artery calcification suggested. Multiple calcified granulomas suggested in the right lung, unchanged. Degenerative changes of the spine and bilateral glenohumeral joints. Upper abdomen normal. IMPRESSION: 1. No acute cardiopulmonary disease. Electronically signed by: Wilfrido Dougherty M.D. Laboratory Results 02/25/17 18:55 Red Blood Count 4.55, Mean Corpuscular Volume 86.4, Mean Corpuscular Hemoglobin 29.9, Mean Corpuscular Hemoglobin Concent 34.6, Mean Platelet Volume 9.9, Neutrophils (%) (Auto) 53.6, Lymphocytes (%) (Auto) 27.3, Monocytes (%) (Auto) 9.6, Eosinophils (%) (Auto) 8.3, Basophils (%) (Auto) 0.6, Neutrophils # (Auto) 3.70, Lymphocytes # (Auto) 1.88, Monocytes # (Auto) 0.66, Eosinophils # (Auto) 0.57, Basophils # (Auto) 0.04 02/25/17 18:55 Test 02/25/17 18:55 02/25/17 19:15 White Blood Count 6.89 K/uL (4.8-10.8) Red Blood Count 4.55 M/uL (4.7-6.1) Hemoglobin 13.6 g/dL (14.0-18.0) Hematocrit 39.3 % (42-52) Mean Corpuscular Volume 86.4 fL (80-100) Mean Corpuscular Hemoglobin 29.9 pg (25-34) Mean Corpuscular Hemoglobin Concent 34.6 g/dl (32-36) Platelet Count 341 K/uL (130-400) Mean Platelet Volume 9.9 fL (7.4-10.4) Neutrophils (%) (Auto) 53.6 % Lymphocytes (%) (Auto) 27.3 % Monocytes (%) (Auto) 9.6 % Eosinophils (%) (Auto) 8.3 % Basophils (%) (Auto) 0.6 % Neutrophils # (Auto) 3.70 K/uL (1.4-6.5) Lymphocytes # (Auto) 1.88 K/uL (1.2-3.4) Monocytes # (Auto) 0.66 K/uL (0.11-0.59) Eosinophils # (Auto) 0.57 K/uL (0-0.5) Basophils # (Auto) 0.04 K/uL (0-0.2) RDW Standard Deviation 43.5 fL (36.4-46.3) RDW Coefficient of Variation 13.8 % (11.5-14.5) Immature Granulocyte % (Auto) 0.6 % Immature Granulocyte # (Auto) 0.04 K/uL (0.00-0.02) Prothrombin Time 30.5 SECONDS (9.0-12.0) Prothromb Time International Ratio 2.7 (0.9-1.1) Activated Partial Thromboplast Time 43.9 SECONDS (21.0-31.0) Partial Thromboplastin Ratio 1.7 Anion Gap 11.0 mmol/L (3-11) Est Creatinine Clear Calc Drug Dose 30.5 ml/min Estimated GFR () 34.7 Estimated GFR (Non- 30.0 BUN/Creatinine Ratio 19.2 (10-20) Osmolality 275 mOsm/kg (280-300) Calcium Level 9.5 mg/dl (8.5-10.1) Magnesium Level 1.8 mg/dl (1.8-2.4) Total Bilirubin 0.6 mg/dl (0.2-1) Direct Bilirubin 0.3 mg/dl (0-0.2) Aspartate Amino Transf (AST/SGOT) 90 U/L (15-37) Alanine Aminotransferase (ALT/SGPT) 63 U/L (12-78) Alkaline Phosphatase 121 U/L (45-117) Troponin I < 0.015 ng/ml (0-0.045) Pro-B-Type Natriuretic Peptide 1242 pg/ml (0-1800) Total Protein 7.6 gm/dl (6.4-8.2) Albumin 3.3 gm/dl (3.4-5.0) Lipase 192 U/L (73-393) Urine Color YELLOW Urine Appearance CLEAR (CLEAR) Urine pH 7.5 (4.5-7.5) Urine Specific [place] 1.016 (1.000-1.030) Urine Protein NEG (NEG) Urine Glucose (UA) NEG (NEG) Urine Ketones NEG (NEG) Urine Occult Blood NEG (NEG) Urine Nitrite NEG (NEG) Urine Bilirubin NEG (NEG) Urine Urobilinogen NEG (NEG) Urine Leukocyte Esterase NEG (NEG) Laboratory results per my review. Medications Administered Medications (Trade) Dose Ordered Sig/Ashley Route Start Time Stop Time Status Last Admin Dose Admin Sodium Chloride 1,000 ml @ 999 mls/hr Q1H1M STAT IV 02/25/17 18:23 02/25/17 19:23 DC 02/25/17 19:24 999 MLS/HR Levofloxacin (Levaquin / D5W) 500 mg NOW ONCE IV 02/25/17 19:45 02/25/17 19:46 DC 02/25/17 19:55 500 MG ECG Indication: other (fatigue) Rate (beats per minute): 52 Rhythm: sinus bradycardia Findings: 1st degree AV block, left axis deviation ED Course ED COURSE: Vital signs were reviewed and showed bradycardic The patients medical record was reviewed The above diagnostic studies were performed and reviewed. ED treatments and interventions as stated above. 1811: The patient was evaluated in room A10. A complete history and physical examination was performed. 3: Sodium Chloride 1000 ml @ 999 mls/hr IV. 1944: Levofloxacin 500 mg IV. 2023: Upon reevaluation, the patient is resting. I discussed the findings and the treatment plan with the patient. He expresses agreement and understanding. I spoke with Dr. Guillaume of the [facility] [place] Service. The patient will be evaluated for further management. Based on the patients age, coexisting illnesses, exam and lab findings the decision to treat as an inpatient was made. The patient remained stable while under my care. The patient will be evaluated for further management. Medical Decision Differential Diagnosis includes but is not limited to dehydration, stroke, anemia, hypoglycemia, hyponatremia, hypernatremia, urinary tract infection, pneumonia, bronchitis, sepsis, gastroenteritis, additional abdominal pathology, metabolic abnormalities and infections. Patient is an 81-year-old male sent in from Dr. Lim's office for weakness which has been present for the past 10 days. Patient has been seen here twice before for elevated INR. He has not been eating and drinking. Sodium has been trending down creatinine has been trending up. He does admit to a productive cough and has been on Levaquin without improvement. Patient denies any abdominal pain. Remainder of exam is unremarkable. IV fluids were given. He was given a dose of antibiotics. He was updated at bedside admits internal medicine for weakness associated with hyponatremia and bronchitis. Medication Reconcilliation Current Medication List: was personally reviewed by me Blood Pressure Screening Patient's blood pressure: Elevated blood pressure will be evaluated by hospitalist. Consults Time Called: 2022 Consulting Physician: Dr. Guillaume-[facility] Returned Call: 2023 I reviewed the patient's case with him. He will evaluate the patient for further management. Impression Primary Impression: Hyponatremia Additional Impressions: Failure to thrive Weakness Scribe Attestation The scribe's documentation has been prepared under my direction and personally reviewed by me in its entirety. I confirm that the note above accurately reflects all work, treatment, procedures, and medical decision making performed by me. Departure Information Dispostion Being Evaluated By Hospitalist Referrals [place] (PCP) Patient Instructions My [facility] Problem Qualifiers Additional Impressions: Failure to thrive Failure to thrive age range: in adult Qualified Codes: R62.7 - Adult failure to thrive
[2017-02-25] MEDS ORDERED: DULO-24 PO ×2 (18:57)
[2017-02-25 19:12] LABS: BASO % 0.6 %; BASO ABS # 0.04 K/uL (0-0.2); COMPLETE YES; EOS % 8.3 %; HEMATOCRIT 39.3 % (42-52); IG% 0.6 %; LYMPH % 27.3 %; LYMPH ABS # 1.88 K/uL (1.2-3.4); MEAN CELL VOLUME 86.4 fL (80-100); MEAN CORPUSCULAR HEMOGLOBIN 29.9 pg (25-34); MEAN CORPUSCULAR HGB CONC 34.6 g/dl (32-36); MEAN PLATELET VOLUME 9.9 fL (7.4-10.4); MONO % 9.6 %; NEUT % 53.6 %; PLATELET COUNT 341 K/uL (130-400); RED BLOOD COUNT 4.55 M/uL (4.7-6.1); WHITE BLOOD COUNT 6.89 K/uL (4.8-10.8)
[2017-02-25 19:24] LABS: INR 2.7 (0.9-1.1); PARTIAL THROMBOPLASTIN RATIO 1.7; PROTHROMBIN TIME (PATIENT) 30.5 SECONDS (9.0-12.0)
[2017-02-25 19:30] LABS: ALT/SGPT 63 U/L (12-78); BLOOD UREA NITROGEN 38 mg/dl (7-18); BUN/CREATININE RATIO 19.2 (10-20); CALCIUM 9.5 mg/dl (8.5-10.1); CARBON DIOXIDE 22 mmol/L (21-32); CHLORIDE 94 mmol/L (98-107); GLUCOSE 104 mg/dl (70-99); MAGNESIUM 1.8 mg/dl (1.8-2.4); POTASSIUM 4.7 mmol/L (3.5-5.1); SODIUM 127 mmol/L (136-145)
[2017-02-25 19:36] LABS: ALKALINE PHOSPHATASE 121 U/L (45-117); AST/SGOT 90 U/L (15-37)
[2017-02-25 19:36] LABS: URINE APPEARANCE CLEAR (CLEAR); URINE BILIRUBIN NEG (NEG); URINE COLOR YELLOW; URINE NITRITE NEG (NEG); URINE PH 7.5 (4.5-7.5); URINE SPECIFIC GRAVITY 1.016 (1.000-1.030); UROBILINOGEN NEG (NEG)
[2017-02-25 19:42] LABS: MANUAL MICROSCOPIC REQUIRED? NO; REVIEW REQ? NO
[2017-02-25] MEDS ORDERED: LEVAQUIN 500MG / 100ML D5W IV ONE (19:45)
[2017-02-25] MEDS ORDERED: ALUMINUM/MAGNESIUM/SIMETH (MAALOX MAX) 30 ML UDC PO PRN (20:45)
[2017-02-25] MEDS ORDERED: ONDANSETRON INJ 2 MG/ML 2 ML VIAL IV PRN (20:45)
[2017-02-25] MEDS ORDERED: POLYETHYLENE (MIRALAX) 17 GM PACK PO PRN (20:45)
[2017-02-25] MEDS ORDERED: MAGNESIUM HYDROXIDE SUSP 30 ML UDC PO PRN (20:45)
--- NOTE | 2017-02-25 21:00 | History and Physical ---
History & Physical Date & Time of Service: Feb 25, 2017 at 21:00 Chief Complaint: Renal,Bronchitis,Poss Pneumonia Primary Care Physician: Tonio History of Present Illness Source: patient Mr Lan is an 81-year-old male with atrial fibrillation, on Coumadin, hx of prostate Ca, history of hyponatremia in March 2016, felt to be due to his antidepressant which he was transitioned off of, who presents with fatigue for about 10 days. He had come to the ER twice in the last ten days as well with his INR being elevated. Currently he reports feeling nauseated and that he vomited once today. He denies any chest pain or any shortness of breath. He reports that he is just incredibly fatigued and cannot figure out why. He was placed on Levaquin during his second ED visit. 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 Lim today, who sent him to the ER. He does report feeling somewhat hungry , and 8 about half of a turkey sandwich which made him nauseated but he can keep down. He did not want to provide much of other history due to his nausea during our conversation. Past Medical/Surgical History Medical Problems: (1) Chronic kidney disease Status: Chronic (2) H/O blood clots Status: Chronic (3) Prostate cancer Status: Chronic Surgical Problems: (1) History of coronary artery stent placement Status: Chronic Family History Patient reports no known family medical history. No pertinent family history Social History Smoking Status: Former Smoker Smokeless Tobacco Use: No Alcohol Use: none Drug Use: none Marital Status: Housing status: assisted living Occupational Status: retired Immunizations History of Influenza Vaccine: Yes History of Tetanus Vaccine?: Unknown History of Pneumococcal: Yes History of Hepatitis B Vaccine: Unknown Multi-Drug Resistant Organisms History of MDRO: No Allergies Coded Allergies: No Known Allergies (Unverified , 02/25/17) Home Medications Scheduled Aspirin (Aspirin Ec), 81 MG PO DAILY Carvedilol (Coreg), 6.25 MG PO QPM Carvedilol (Coreg), 12.5 MG PO QAM Cetirizine (Zyrtec), 10 MG PO DAILY Cholecalciferol (Vitamin D3), 2,000 INTER.UNIT PO QAM Duloxetine HCl (Cymbalta), 20 MG PO DAILY Fenofibrate (Tricor), 145 MG PO DAILY Finasteride (Proscar), 5 MG PO QAM Ketoconazole (Nizoral), 200 MG PO TID Multiple Vitamin (Multivitamin), 1 TAB PO DAILY Tamsulosin Hcl (Flomax), 0.4 MG PO HS Warfarin Sod (Jantoven), 3 MG PO Q2D Warfarin Sod (Jantoven), 2 MG PO Q2D Review of Systems See HPI for pertinent positives & negatives. A total of 10 systems reviewed and were otherwise negative. Physical Exam Vital Signs Date Time Temp Pulse Resp B/P (MAP) Pulse Ox O2 Delivery O2 Flow Rate FiO2 02/25/17 20:37 71 18 158/72 96 Room Air 02/25/17 19:26 55 20 133/77 99 Room Air 02/25/17 19:25 58 20 133/77 55 130/76 66 84/56 02/25/17 18:44 53 02/25/17 18:37 98 Room Air 02/25/17 18:37 98 Room Air 02/25/17 18:00 36.3 56 16 128/68 98 Room Air General Appearance: WD/WN, + mild distress (nauseated), + thin Head: normocephalic, atraumatic Eyes: normal inspection ENT: hearing grossly normal Neck: supple, no JVD Respiratory/Chest: lungs clear, normal breath sounds, no respiratory distress Cardiovascular: no murmur, normal peripheral pulses, + irregularly irregular Abdomen/GI: non tender, soft Back: no CVA tenderness, no muscle spasm Extremities/Musculoskelatal: no calf tenderness, no pedal edema Neurologic/Psych: alert, + pertinent finding (anxious affect) Skin: no rash Diagnostics Laboratory Results Results Past 24 Hours Test 02/25/17 18:55 02/25/17 19:15 Range/Units White Blood Count 6.89 4.8-10.8 K/uL Red Blood Count 4.55 4.7-6.1 M/uL Hemoglobin 13.6 14.0-18.0 g/dL Hematocrit 39.3 42-52 % Mean Corpuscular Volume 86.4 80-100 fL Mean Corpuscular Hemoglobin 29.9 25-34 pg Mean Corpuscular Hemoglobin Concent 34.6 32-36 g/dl Platelet Count 341 130-400 K/uL Mean Platelet Volume 9.9 7.4-10.4 fL Neutrophils (%) (Auto) 53.6 % Lymphocytes (%) (Auto) 27.3 % Monocytes (%) (Auto) 9.6 % Eosinophils (%) (Auto) 8.3 % Basophils (%) (Auto) 0.6 % Neutrophils # (Auto) 3.70 1.4-6.5 K/uL Lymphocytes # (Auto) 1.88 1.2-3.4 K/uL Monocytes # (Auto) 0.66 0.11-0.59 K/uL Eosinophils # (Auto) 0.57 0-0.5 K/uL Basophils # (Auto) 0.04 0-0.2 K/uL RDW Standard Deviation 43.5 36.4-46.3 fL RDW Coefficient of Variation 13.8 11.5-14.5 % Immature Granulocyte % (Auto) 0.6 % Immature Granulocyte # (Auto) 0.04 0.00-0.02 K/uL Prothrombin Time 30.5 9.0-12.0 SECONDS Prothromb Time International Ratio 2.7 0.9-1.1 Activated Partial Thromboplast Time 43.9 21.0-31.0 SECONDS Partial Thromboplastin Ratio 1.7 Sodium Level 127 136-145 mmol/L Potassium Level 4.7 3.5-5.1 mmol/L Chloride Level 94 98-107 mmol/L Carbon Dioxide Level 22 21-32 mmol/L Anion Gap 11.0 3-11 mmol/L Blood Urea Nitrogen 38 7-18 mg/dl Creatinine 2.00 0.60-1.40 mg/dl Est Creatinine Clear Calc Drug Dose 30.5 ml/min Estimated GFR () 34.7 Estimated GFR (Non- 30.0 BUN/Creatinine Ratio 19.2 10-20 Random Glucose 104 70-99 mg/dl Osmolality 275 280-300 mOsm/kg Calcium Level 9.5 8.5-10.1 mg/dl Magnesium Level 1.8 1.8-2.4 mg/dl Total Bilirubin 0.6 0.2-1 mg/dl Direct Bilirubin 0.3 0-0.2 mg/dl Aspartate Amino Transf (AST/SGOT) 90 15-37 U/L Alanine Aminotransferase (ALT/SGPT) 63 12-78 U/L Alkaline Phosphatase 121 45-117 U/L Troponin I < 0.015 0-0.045 ng/ml Pro-B-Type Natriuretic Peptide 1242 0-1800 pg/ml Total Protein 7.6 6.4-8.2 gm/dl Albumin 3.3 3.4-5.0 gm/dl Lipase 192 73-393 U/L Urine Color YELLOW Urine Appearance CLEAR CLEAR Urine pH 7.5 4.5-7.5 Urine Specific [place] 1.016 1.000-1.030 Urine Protein NEG NEG Urine Glucose (UA) NEG NEG Urine Ketones NEG NEG Urine Occult Blood NEG NEG Urine Nitrite NEG NEG Urine Bilirubin NEG NEG Urine Urobilinogen NEG NEG Urine Leukocyte Esterase NEG NEG CXR normal EKG Sinus bradycardia with sinus arrhythmia with 1st degree A-V block Minimal voltage criteria for LVH, may be normal variant Borderline ECG When compared with ECG of 20-FEB-2017 10:08, No significant change was found Impression Assessment and Plan 81 yo M with 10 days of fatigue, anorexia, intermittent cough / nausea - found to have hyponatremia - ddx includes influenza, SIADH, ?recurrence of malignancy. Hyponatremia - Pending urine and serum osmolalities. - If is SIADH, will fluid restrict to 1500cc/day. It is also unclear what the cause would be. - Received 1L IV fluids in the ED. Will hold off on further fluids for now. Nausea - Zofran / Reglan PRN Atrial fibrillation - Continue home carvedilol - INR today 2.2. Continue home Warfarin dosing. Cough / congestion - Levaquin did not provide relief. Will hold off on this for now - Repeat CXR in AM - Duonebs Anorexia - Boost supplements VTE: Warfarin Dispo: Tele Attending Addendum: I have physically seen and examined this patient, have directed the resident's medical activities, and agree with the H&P as noted above with the following exceptions as noted. The patient is awake, alert and oriented 3, well-developed and well-nourished , normocephalic and atraumatic, lying in bed and in no acute distress. HEENT--PERRL, EOMI, mucous membranes and oropharynx dry. Neck--supple, no JVD or bruits, thyroid normal, trachea midline, no adenopathy. Heart--normal S1 and S2, no extra beats, no murmurs, rubs or gallops. Lungs--clear bilaterally with good air movement, no respiratory distress, no accessory muscle use. Abdomen--normal bowel sounds and soft, nontender and nondistended, no hernias or masses, no organomegaly. Extremities--no cyanosis, clubbing or edema. There are good distal pulses b/l. Dermatologic--normal skin turgor, normal color, warm and dry, no abnormal lymph nodes, no rash. Neurologic--cranial nerves II through XII grossly intact. Rheumatologic--normal range of motion, nontender, muscles and joints. Psychiatric--normal affect. Assessment and Plan: 1. Hyponatremia--sodium was 127 upon admission. Add a serum osmolality and urine osmolality. Received 1 L of normal saline in the ED. Hold off any further fluids until results are returned. No obvious medication side effects. 2. CAD/coronary artery stent placement/Atrial fibrillation/hypertension-- Continue aspirin 81 mg by mouth daily, carvedilol 12.5 mg in the a.m. and 6.25 mg in the p.m. Continue warfarin 2 mg alternating with 3. 3. Prostate cancer-- Continue finasteride 5 mg by mouth every morning and tamsulosin 0.4 mg by mouth at bedtime. 4. Hypertriglyceridemia-- Continue fenofibrate 145 mg by mouth daily. Level of Care Telemetry Advanced Directives Existing Advance Directive: No Existing Living Will: No Existing Power of Artist Manager: No Resuscitation Status FULL RESUSCITATION VTE Prophylaxis VTE Risk Assessment Done? Y/N: Yes Risk Level: Moderate Given or contraindicated: Warfarin (Coumadin) Resident Tracking Resident Involvement: Resident Care Provided Care Provided: Adult Hospital Medicine
[2017-02-25 22:30] VITALS: BP 158/85; PULSE 57; TEMP 36.2; O2SAT 96; Ht 172.7 cm; Wt 87.0 kg
[2017-02-25] MEDS: WARFARIN SOD 3 MG TAB PO SCH (23:13)
[2017-02-25] MEDS: KETOCONAZOLE 200 MG TAB PO SCH (23:14)
[2017-02-25] MEDS: TAMSULOSIN HCL 0.4 MG CAP PO SCH (23:14)
[2017-02-25] MEDS: CARVEDILOL 6.25 MG TAB PO SCH (23:15)
[2017-02-26] VITALS (9 sets, daily range): BP systolic 130–166; BP diastolic 71–79; PULSE 49–92; TEMP 36.4–36.6; O2SAT 94–99
[2017-02-26 01:33] LABS: INFLUENZA A PCR Neg for Influ A (NEG); INFLUENZA B PCR Neg for Influ B (NEG)
[2017-02-26] MEDS: ALBUT/IPRATROP 3MG/0.5MG NEB 3 ML VIAL INH SCH ×4 (07:17→19:55)
[2017-02-26] MEDS: ASPIRIN 81 MG ECTAB PO SCH (08:08)
[2017-02-26] MEDS: MULTIVITAMIN TAB PO SCH (08:09)
[2017-02-26] MEDS: FENOFIBRATE 145 MG TAB PO SCH (08:09)
[2017-02-26] MEDS: FINASTERIDE 5 MG TAB PO SCH (08:09)
[2017-02-26] MEDS: CHOLECALCIFEROL 1000 INTER.UNIT TAB PO SCH (08:09)
[2017-02-26] MEDS: DULOXETINE HCL 20 MG CAP PO SCH (08:09)
[2017-02-26] MEDS: CETIRIZINE HCL 10 MG TAB PO SCH (08:09)
[2017-02-26] MEDS: KETOCONAZOLE 200 MG TAB PO SCH ×3 (08:10→21:06)
[2017-02-26] MEDS: CARVEDILOL 12.5 MG TAB PO SCH (08:10)
--- NOTE | 2017-02-26 08:52 | Clinical Documentation Query ---
CLINICAL DOCUMENTATION QUERY 81 year old male who presents to the Emergency Room with complaints of constant fatigue beginning 11 days ago. He has a documented history of CKD. In your clinical opinion is this patient being managed for: ( ) Chronic kidney disease, stage 3 ( ) Not Agree ( ) Other explanation of clinical findings (Please Explain) ( ) Unable to determine (Please Define) ( ) Need to Discuss The medical record reflects the following clinical findings, treatment, and risk factors. Clinical Indicators: GFR 30, trending down from 39.5 in September 2016, hyponatremia Treatment: IV fluids, output monitoring, monitoring PRPs Risk Factors: Age, vomiting, lethargy, weakness, dehydration Please clarify and document your clinical opinion in the progress notes and discharge summary. Terms such as "probable", "suspected", "likely", "questionable", "possible", or "still to be ruled out" are acceptable. IF IN AGREEMENT, YOU MUST DOCUMENT ABOVE DIAGNOSTIC STATEMENT IN DAILY PROGRESS NOTES AND DISCHARGE SUMMARY. This document is not part of the patient's record. Thank You, Lilia Ch RN [phone]
[2017-02-26] MEDS ORDERED: SODIUM CHLORIDE 0.9% 1000ML 1,000 ML IV SCH (10:00)
--- NOTE | 2017-02-26 12:03 | Family Medicine Progress Note ---
Progress Note Date of Service Feb 26, 2017. Subjective Pt evaluation today including: conversation w/ patient, physical exam, chart review, lab review, conversation w/ risk management consultant, review of inpatient medication list Pain: none PO Intake: good Voiding: no voiding problems Patient admitted overnight for 3 week history of fatigue and nausea and found to have a sodium of 127 on admission as well as a creatinine of 2.0. No longer feeling nauseated, but feeling extremely tired. Has been urinating very frequently lately >12 times daily. Has been using boost supplement and was having diarrhea on and off for a couple weeks but now resolved Has been eating well and drinking plenty of fluids Lives at [facility] with . Son was in room this morning and can be contacted at [phone] Constitutional: No fever, No chills, No sweats, No weakness, No fatigue Respiratory: No cough, No sputum, No wheezing, No shortness of breath, No dyspnea on exertion Cardiovascular: No chest pain, No palpitations Abdomen: + nausea, No pain, No vomiting, No diarrhea, No constipation Musculoskeletal: No joint pain, No muscle pain Male : No dysuria Psychiatric: No depression symptoms, No anxiety Heme: No abnormal bleeding/bruising Skin: No rash, No itch, No new/changing skin lesions Medications Current Inpatient Medications Medications (Trade) Dose Ordered Sig/Ashley Route Start Time Stop Time Status Last Admin Dose Admin Al Hydrox/Mg Hydrox/Simethicone (Maalox Max Susp) 15 ml Q4H PRN PO 02/25/17 20:45 03/27/17 20:44 Magnesium Hydroxide (Milk Of Magnesia Susp) 30 ml Q12H PRN PO 02/25/17 20:45 03/27/17 20:44 Ondansetron HCl (Zofran Inj) 4 mg Q6H PRN IV 02/25/17 20:45 03/27/17 20:44 Polyethylene (Miralax Powder Packet) 17 gm DAILY PRN PO 02/25/17 20:45 03/27/17 20:44 Aspirin (Ecotrin Tab) 81 mg DAILY PO 02/26/17 09:00 03/28/17 08:59 02/26/17 08:08 81 MG Carvedilol (Coreg Tab) 6.25 mg QPM PO 02/25/17 21:00 03/27/17 20:59 02/25/17 23:15 6.25 MG Carvedilol (Coreg Tab) 12.5 mg QAM PO 02/26/17 09:00 03/28/17 08:59 02/26/17 08:10 12.5 MG Cetirizine HCl (zyrTEC TAB) 10 mg DAILY PO 02/26/17 09:00 03/28/17 08:59 02/26/17 08:09 10 MG Cholecalciferol (Vitamin D Tab) 2,000 inter.unit QAM PO 02/26/17 09:00 03/28/17 08:59 02/26/17 08:09 2,000 INTER.UNIT Duloxetine HCl (Cymbalta Cap) 20 mg DAILY PO 02/26/17 09:00 03/28/17 08:59 02/26/17 08:09 20 MG Fenofibrate (Tricor Tab) 145 mg DAILY PO 02/26/17 09:00 03/28/17 08:59 02/26/17 08:09 145 MG Finasteride (Proscar Tab) 5 mg QAM PO 02/26/17 09:00 03/28/17 08:59 02/26/17 08:09 5 MG Ketoconazole (Nizoral Tab) 200 mg TID PO 02/25/17 21:00 03/27/17 20:59 02/26/17 08:10 200 MG Multivitamins (Multivitamin Tab) 1 tab DAILY PO 02/26/17 09:00 03/28/17 08:59 02/26/17 08:09 1 TAB Tamsulosin HCl (Flomax Cap) 0.4 mg HS PO 02/25/17 21:00 03/27/17 20:59 02/25/17 23:14 0.4 MG Warfarin Sodium (Coumadin Tab) 3 mg Q2D@1600 PO 02/25/17 22:45 03/27/17 22:44 02/25/17 23:13 3 MG Warfarin Sodium (Coumadin Tab) 2 mg Q2D@1600 PO 02/26/17 16:00 03/28/17 15:59 Albuterol/ Ipratropium (Duoneb) 3 ml Q4RWA INH 02/26/17 08:00 03/28/17 07:59 02/26/17 11:20 3 ML Sodium Chloride 1,000 ml @ 75 mls/hr [id number] IV 02/26/17 10:00 03/28/17 09:59 02/26/17 10:16 75 MLS/HR Objective Vital Signs Date Time Temp Pulse Resp B/P (MAP) Pulse Ox O2 Delivery O2 Flow Rate FiO2 02/26/17 11:31 36.4 49 18 146/71 (96) 95 Room Air 02/26/17 11:20 90 18 94 Room Air 02/26/17 08:11 62 02/26/17 08:00 Room Air 02/26/17 07:48 36.4 56 18 161/79 (106) 99 Room Air 02/26/17 07:17 91 18 94 Room Air 02/26/17 04:33 36.5 57 18 155/79 (104) 97 02/26/17 04:10 Room Air 02/26/17 00:00 Room Air 02/25/17 22:30 36.2 57 16 158/85 96 Room Air 02/25/17 21:41 61 20 124/77 96 Room Air 02/25/17 20:37 71 18 158/72 96 Room Air 02/25/17 19:26 55 20 133/77 99 Room Air 02/25/17 19:25 58 20 133/77 55 130/76 66 84/56 02/25/17 18:44 53 02/25/17 18:37 98 Room Air 02/25/17 18:37 98 Room Air 02/25/17 18:00 36.3 56 16 128/68 98 Room Air Physical Exam General Appearance: WD/WN, no apparent distress Eyes: PERRL ENT: hearing grossly normal Neck: no JVD, no carotid bruits, trachea midline Respiratory/Chest: lungs clear, no respiratory distress, no accessory muscle use Cardiovascular: no JVD, no murmur, + irregularly irregular Abdomen: normal bowel sounds, non tender, soft Extremities: non-tender, no pedal edema, no calf tenderness, normal capillary refill Neurologic/Psychiatric: alert, normal mood/affect, oriented x 3 Skin: normal color, warm/dry, no rash Laboratory Results Results Past 24 Hours Test 02/25/17 18:55 02/25/17 19:15 02/25/17 22:18 02/26/17 11:40 Range/Units White Blood Count 6.89 4.8-10.8 K/uL Red Blood Count 4.55 4.7-6.1 M/uL Hemoglobin 13.6 14.0-18.0 g/dL Hematocrit 39.3 42-52 % Mean Corpuscular Volume 86.4 80-100 fL Mean Corpuscular Hemoglobin 29.9 25-34 pg Mean Corpuscular Hemoglobin Concent 34.6 32-36 g/dl Platelet Count 341 130-400 K/uL Mean Platelet Volume 9.9 7.4-10.4 fL Neutrophils (%) (Auto) 53.6 % Lymphocytes (%) (Auto) 27.3 % Monocytes (%) (Auto) 9.6 % Eosinophils (%) (Auto) 8.3 % Basophils (%) (Auto) 0.6 % Neutrophils # (Auto) 3.70 1.4-6.5 K/uL Lymphocytes # (Auto) 1.88 1.2-3.4 K/uL Monocytes # (Auto) 0.66 0.11-0.59 K/uL Eosinophils # (Auto) 0.57 0-0.5 K/uL Basophils # (Auto) 0.04 0-0.2 K/uL RDW Standard Deviation 43.5 36.4-46.3 fL RDW Coefficient of Variation 13.8 11.5-14.5 % Immature Granulocyte % (Auto) 0.6 % Immature Granulocyte # (Auto) 0.04 0.00-0.02 K/uL Prothrombin Time 30.5 9.0-12.0 SECONDS Prothromb Time International Ratio 2.7 0.9-1.1 Activated Partial Thromboplast Time 43.9 21.0-31.0 SECONDS Partial Thromboplastin Ratio 1.7 Sodium Level 127 136-145 mmol/L Potassium Level 4.7 3.5-5.1 mmol/L Chloride Level 94 98-107 mmol/L Carbon Dioxide Level 22 21-32 mmol/L Anion Gap 11.0 3-11 mmol/L Blood Urea Nitrogen 38 7-18 mg/dl Creatinine 2.00 0.60-1.40 mg/dl Est Creatinine Clear Calc Drug Dose 30.5 ml/min Estimated GFR () 34.7 Estimated GFR (Non- 30.0 BUN/Creatinine Ratio 19.2 10-20 Random Glucose 104 70-99 mg/dl Osmolality 275 280-300 mOsm/kg Calcium Level 9.5 8.5-10.1 mg/dl Magnesium Level 1.8 1.8-2.4 mg/dl Total Bilirubin 0.6 0.2-1 mg/dl Direct Bilirubin 0.3 0-0.2 mg/dl Aspartate Amino Transf (AST/SGOT) 90 15-37 U/L Alanine Aminotransferase (ALT/SGPT) 63 12-78 U/L Alkaline Phosphatase 121 45-117 U/L Troponin I < 0.015 0-0.045 ng/ml Pro-B-Type Natriuretic Peptide 1242 0-1800 pg/ml Total Protein 7.6 6.4-8.2 gm/dl Albumin 3.3 3.4-5.0 gm/dl Lipase 192 73-393 U/L Urine Color YELLOW Urine Appearance CLEAR CLEAR Urine pH 7.5 4.5-7.5 Urine Specific [place] 1.016 1.000-1.030 Urine Protein NEG NEG Urine Glucose (UA) NEG NEG Urine Ketones NEG NEG Urine Occult Blood NEG NEG Urine Nitrite NEG NEG Urine Bilirubin NEG NEG Urine Urobilinogen NEG NEG Urine Leukocyte Esterase NEG NEG Urine Osmolality 476 500-800 mOms/kg Influenza Type A (RT-PCR) Neg for Influ A NEG Influenza Type B (RT-PCR) Neg for Influ B NEG Assessment and Plan 81 yo M with 10 days of fatigue, anorexia, intermittent cough / nausea - found to have hyponatremia Hyponatremia - Urine osm 476, serum osm 275. Na 127. will repeat this afternoon - Received 1L IV fluids in the ED. creatinine of 2.0. - will start IV fluids NS at 75mls/hr for 1 Litre - likely to be due to dehydration with lower baseline Fatigue - will need to contact cancer doc (dr Cagle) for further info - possibly dehydration and poor oral intake, will reassess after fluid administration - flu negative in ED - Hgb 13.6, order iron panel and B12 and folate - Check TSH - HR in 50s - follow CHAVA on CKD - likely sec to dehydration from poor oral intake - creatinine 2.0 with GFR of 30 - give 75mls/hr IVF and recheck creatinine Nausea - Zofran / Reglan PRN - discuss further with oncology. consider GI eval if symptoms persists Atrial fibrillation - Continue home carvedilol - INR today 2.7 yesterday. Continue home Warfarin dosing. - will follow INR CAD - stent placed in past - ASA daily, carvedilol 12.5 in am and 6.25 in PM Prostate Cancer - continue finasteride 5mg PO and tamsulosin 0.4mg by mouth - will f/u with Dr. Reyes for current prostate cancer status Hypertriglyceridemia - continue fenofibrate Cough / congestion - Levaquin did not provide relief. Will hold off on this for now - CXr in ED without any findings - Duonebs Warfarin for DVT proph Sons number is [phone] Continued [facility] stay due to: other Reviewed: Pt Seen/Exam by Me History has been feeling nauseous for sometime. has had diarrhea in recent past after taking boost. taking boost as per his son's recommendation to help with nutrition. no chest pain. sob. feels very fatigued and tired Constitutional: denies: fever Respiratory: negative: short of breath Cardiovascular: denies chest pain General Appearance: no apparent distress Respiratory: lungs clear, no respiratory distress Cardiovascular: regular rate, rhythm Neurologic/Psychiatric: alert, oriented x 3 Skin Characteristics: warm/dry Assessment/Plan Resident Physician Supervision Note: I was present with Dr. Smiley in bedside. I verified the morris history and physical, reviewed labs and image studies, discussed the case with the resident and agree with the findings and care plan.
[2017-02-26 12:27] LABS: INR 2.6 (0.9-1.1); PROTHROMBIN TIME (PATIENT) 29.1 SECONDS (9.0-12.0)
[2017-02-26 12:44] LABS: BUN/CREATININE RATIO 20.2 (10-20); CALCIUM 8.4 mg/dl (8.5-10.1); CREATININE 1.7 mg/dl (0.60-1.40); POTASSIUM 4.4 mmol/L (3.5-5.1)
--- NOTE | 2017-02-26 15:32 | DIAGNOSTIC IMAGING REPORT ---
TWO VIEW CHEST CLINICAL HISTORY: Weakness. FINDINGS: PA and lateral chest radiographs are compared to study dated 02/25/2017. The heart is top normal for projection and there is atherosclerotic calcification of the thoracic aorta. Chronic interstitial thickening is similar to previous. No airspace consolidation or pleural effusion is identified. Scattered calcified granulomas are observed. There is no pneumothorax. The skeletal structures are osteopenic. Degenerative change is present throughout the thoracic spine. IMPRESSION: No acute cardiopulmonary abnormality. Electronically signed by: James Lamb M.D. 02/26/2017 3:30 PM Dictated Date/Time: 02/26/2017 3:29 PM
[2017-02-26] MEDS ORDERED: WARFARIN SOD 2 MG TAB PO SCH (16:00)
[2017-02-26 19:48] LABS: BUN/CREATININE RATIO 20.6 (10-20); CALCIUM 8.2 mg/dl (8.5-10.1); CREATININE 1.6 mg/dl (0.60-1.40); POTASSIUM 4.3 mmol/L (3.5-5.1)
[2017-02-26] MEDS: TAMSULOSIN HCL 0.4 MG CAP PO SCH (21:06)
[2017-02-26] MEDS: CARVEDILOL 6.25 MG TAB PO SCH (21:06)
[2017-02-27] VITALS (10 sets, daily range): BP systolic 129–159; BP diastolic 66–78; PULSE 52–67; TEMP 36.4–36.7; O2SAT 95–98
[2017-02-27 05:48] LABS: BASO % 1.1 %; BASO ABS # 0.07 K/uL (0-0.2); COMPLETE YES; EOS % 8.7 %; HEMATOCRIT 35.2 % (42-52); IG% 0.5 %; LYMPH % 31.4 %; LYMPH ABS # 1.99 K/uL (1.2-3.4); MEAN CELL VOLUME 86.9 fL (80-100); MEAN CORPUSCULAR HEMOGLOBIN 29.1 pg (25-34); MEAN CORPUSCULAR HGB CONC 33.5 g/dl (32-36); MEAN PLATELET VOLUME 9.8 fL (7.4-10.4); MONO % 9.6 %; NEUT % 48.7 %; PLATELET COUNT 296 K/uL (130-400); RED BLOOD COUNT 4.05 M/uL (4.7-6.1); WHITE BLOOD COUNT 6.33 K/uL (4.8-10.8)
[2017-02-27 06:18] LABS: BUN/CREATININE RATIO 19.5 (10-20); CALCIUM 8.8 mg/dl (8.5-10.1); CREATININE 1.5 mg/dl (0.60-1.40); POTASSIUM 4.1 mmol/L (3.5-5.1)
[2017-02-27 06:28] LABS: ALB/GLOB RATIO 0.8 (0.9-2); FERRITIN 421.2 ng/ml (8.0-388.0); THYROID STIMULATING HORMONE 1.98 uIu/ml (0.300-4.500)
[2017-02-27] MEDS: ALBUT/IPRATROP 3MG/0.5MG NEB 3 ML VIAL INH SCH ×4 (07:33→19:45)
[2017-02-27] MEDS: DULOXETINE HCL 20 MG CAP PO SCH (09:08)
[2017-02-27] MEDS: KETOCONAZOLE 200 MG TAB PO SCH ×2 (09:08→13:26)
[2017-02-27] MEDS: CHOLECALCIFEROL 1000 INTER.UNIT TAB PO SCH (09:08)
[2017-02-27] MEDS: FENOFIBRATE 145 MG TAB PO SCH (09:08)
[2017-02-27] MEDS: CETIRIZINE HCL 10 MG TAB PO SCH (09:09)
[2017-02-27] MEDS: MULTIVITAMIN TAB PO SCH (09:09)
[2017-02-27] MEDS: FINASTERIDE 5 MG TAB PO SCH (09:09)
[2017-02-27] MEDS: ASPIRIN 81 MG ECTAB PO SCH (09:09)
[2017-02-27] MEDS: CARVEDILOL 12.5 MG TAB PO SCH (09:09)
[2017-02-27] MEDS ORDERED: SODIUM CHLORIDE 0.9% 1000ML 1,000 ML IV SCH (10:30)
[2017-02-27] MEDS ORDERED: NURSING VERBAL MED ORDER ONE (13:15)
--- NOTE | 2017-02-27 14:12 | Family Medicine Progress Note ---
Progress Note Date of Service Feb 27, 2017. Subjective Pt evaluation today including: conversation w/ patient, conversation w/ family , physical exam, chart review, conversation w/ business transformation consultant, review of inpatient medication list Pain: none PO Intake: poor Voiding: no voiding problems Patient without any acute events overnight Still feeling very fatigued; however, nausea has improved. Spoke to son and he said that they had recently started ketoconazole 3 weeks ago and ever since starting that med his father had been very tired and with a poor appetite. His most recent PSA as an outpatient was 2.4. I spoke to Dr. Cagle, patients oncologist, and he said that he did not suggest ketoconazole; however, the patient and son wanted to try it instead of another medication as the "newer" medication that is very expensive Constitutional: + weight loss, + weakness, + fatigue, No fever, No chills, No sweats Respiratory: No cough, No shortness of breath, No hemoptysis Cardiovascular: No chest pain, No edema, No palpitations Abdomen: No pain, No nausea, No vomiting, No diarrhea, No constipation Heme: No abnormal bleeding/bruising, No clotting problems Endo: + fatigue Skin: No rash, No itch, No new/changing skin lesions Medications Current Inpatient Medications Medications (Trade) Dose Ordered Sig/Ashley Route Start Time Stop Time Status Last Admin Dose Admin Al Hydrox/Mg Hydrox/Simethicone (Maalox Max Susp) 15 ml Q4H PRN PO 02/25/17 20:45 03/27/17 20:44 Magnesium Hydroxide (Milk Of Magnesia Susp) 30 ml Q12H PRN PO 02/25/17 20:45 03/27/17 20:44 Ondansetron HCl (Zofran Inj) 4 mg Q6H PRN IV 02/25/17 20:45 03/27/17 20:44 Polyethylene (Miralax Powder Packet) 17 gm DAILY PRN PO 02/25/17 20:45 03/27/17 20:44 Aspirin (Ecotrin Tab) 81 mg DAILY PO 02/26/17 09:00 03/28/17 08:59 02/27/17 09:09 81 MG Carvedilol (Coreg Tab) 6.25 mg QPM PO 02/25/17 21:00 03/27/17 20:59 02/26/17 21:06 6.25 MG Carvedilol (Coreg Tab) 12.5 mg QAM PO 02/26/17 09:00 03/28/17 08:59 02/27/17 09:09 12.5 MG Cetirizine HCl (zyrTEC TAB) 10 mg DAILY PO 02/26/17 09:00 03/28/17 08:59 02/27/17 09:09 10 MG Cholecalciferol (Vitamin D Tab) 2,000 inter.unit QAM PO 02/26/17 09:00 03/28/17 08:59 02/27/17 09:08 2,000 INTER.UNIT Duloxetine HCl (Cymbalta Cap) 20 mg DAILY PO 02/26/17 09:00 03/28/17 08:59 02/27/17 09:08 20 MG Fenofibrate (Tricor Tab) 145 mg DAILY PO 02/26/17 09:00 03/28/17 08:59 02/27/17 09:08 145 MG Finasteride (Proscar Tab) 5 mg QAM PO 02/26/17 09:00 03/28/17 08:59 02/27/17 09:09 5 MG Multivitamins (Multivitamin Tab) 1 tab DAILY PO 02/26/17 09:00 03/28/17 08:59 02/27/17 09:09 1 TAB Tamsulosin HCl (Flomax Cap) 0.4 mg HS PO 02/25/17 21:00 03/27/17 20:59 02/26/17 21:06 0.4 MG Warfarin Sodium (Coumadin Tab) 3 mg Q2D@1600 PO 02/25/17 22:45 03/27/17 22:44 02/25/17 23:13 3 MG Warfarin Sodium (Coumadin Tab) 2 mg Q2D@1600 PO 02/26/17 16:00 03/28/17 15:59 02/26/17 16:05 2 MG Albuterol/ Ipratropium (Duoneb) 3 ml Q4RWA INH 02/26/17 08:00 03/28/17 07:59 02/27/17 07:33 3 ML Objective Vital Signs Date Time Temp Pulse Resp B/P (MAP) Pulse Ox O2 Delivery O2 Flow Rate FiO2 02/27/17 12:00 Room Air 02/27/17 11:29 36.4 55 18 142/75 (97) 95 02/27/17 09:05 62 02/27/17 08:00 Room Air 02/27/17 07:33 55 20 97 Room Air 02/27/17 07:10 36.4 52 18 135/66 (89) 96 Room Air 02/27/17 04:00 Room Air 02/27/17 00:00 36.7 57 18 159/77 (104) 95 Room Air 02/27/17 00:00 Room Air 02/26/17 19:55 92 20 94 Room Air 02/26/17 19:37 36.6 59 18 130/77 (94) 95 Room Air 02/26/17 19:00 Room Air 02/26/17 15:44 Room Air 02/26/17 15:03 36.6 56 16 166/75 (105) 95 Physical Exam General Appearance: WD/WN, no apparent distress, + pertinent finding (appears pale and fatigued) ENT: hearing grossly normal, pharynx normal Respiratory/Chest: lungs clear, no respiratory distress, no accessory muscle use Cardiovascular: no edema, no JVD, no murmur, + irregularly irregular Abdomen: normal bowel sounds, non tender, soft Extremities: non-tender, no pedal edema, normal capillary refill Neurologic/Psychiatric: no motor/sensory deficits, normal mood/affect, oriented x 3 Skin: normal color, warm/dry, no rash Laboratory Results Results Past 24 Hours Test 02/26/17 19:04 02/27/17 05:21 Range/Units Sodium Level 128 127 136-145 mmol/L Potassium Level 4.3 4.1 3.5-5.1 mmol/L Chloride Level 97 96 98-107 mmol/L Carbon Dioxide Level 23 24 21-32 mmol/L Anion Gap 8.0 7.0 3-11 mmol/L Blood Urea Nitrogen 33 29 7-18 mg/dl Creatinine 1.60 1.50 0.60-1.40 mg/dl Est Creatinine Clear Calc Drug Dose 37.4 39.9 ml/min Estimated GFR () 45.5 49.2 Estimated GFR (Non- 39.3 42.4 BUN/Creatinine Ratio 20.6 19.5 10-20 Random Glucose 124 95 70-99 mg/dl Calcium Level 8.2 8.8 8.5-10.1 mg/dl White Blood Count 6.33 4.8-10.8 K/uL Red Blood Count 4.05 4.7-6.1 M/uL Hemoglobin 11.8 14.0-18.0 g/dL Hematocrit 35.2 42-52 % Mean Corpuscular Volume 86.9 80-100 fL Mean Corpuscular Hemoglobin 29.1 25-34 pg Mean Corpuscular Hemoglobin Concent 33.5 32-36 g/dl Platelet Count 296 130-400 K/uL Mean Platelet Volume 9.8 7.4-10.4 fL Neutrophils (%) (Auto) 48.7 % Lymphocytes (%) (Auto) 31.4 % Monocytes (%) (Auto) 9.6 % Eosinophils (%) (Auto) 8.7 % Basophils (%) (Auto) 1.1 % Neutrophils # (Auto) 3.08 1.4-6.5 K/uL Lymphocytes # (Auto) 1.99 1.2-3.4 K/uL Monocytes # (Auto) 0.61 0.11-0.59 K/uL Eosinophils # (Auto) 0.55 0-0.5 K/uL Basophils # (Auto) 0.07 0-0.2 K/uL RDW Standard Deviation 43.8 36.4-46.3 fL RDW Coefficient of Variation 13.8 11.5-14.5 % Immature Granulocyte % (Auto) 0.5 % Immature Granulocyte # (Auto) 0.03 0.00-0.02 K/uL Iron Level 97 35-175 mcg/dl Total Iron Binding Capacity 344 250-450 mcg/dl Ferritin 421.2 8.0-388.0 ng/ml Total Bilirubin 0.5 0.2-1 mg/dl Aspartate Amino Transf (AST/SGOT) 72 15-37 U/L Alanine Aminotransferase (ALT/SGPT) 46 12-78 U/L Alkaline Phosphatase 99 45-117 U/L Total Protein 6.5 6.4-8.2 gm/dl Albumin 2.9 3.4-5.0 gm/dl Globulin 3.6 2.5-4.0 gm/dl Albumin/Globulin Ratio 0.8 0.9-2 Vitamin B12 Level 745 211-911 pg/mL Folate 11.20 >5.38 ng/mL Thyroid Stimulating Hormone (TSH) 1.980 0.300-4.500 uIu/ml Assessment and Plan 81 yo M with 10 days of fatigue, anorexia, intermittent cough / nausea - found to have hyponatremia Hyponatremia - Urine osm 476, serum osm 275. Na 127 - Received 1L IV fluids in the ED. - given 2 L of NS and creat improved to 1.5 today - likely to be due to dehydration with lower baseline Fatigue - restarted new cancer med ketoconazole in late January and likely to be contributing to fatigue and loss of appetite - Spoke to Dr. Cagle and advised to stop ketoconazole and for patient to follow up in outpatient setting - flu negative in ED - Hgb 13.6, iron panel, order iron panel, B12, folate wnl - TSH wnl CHAVA on CKD - likely sec to dehydration from poor oral intake - creatinine improved to 1.5 with GFR of 30 from 2.0 on admission - IVF given Nausea - Zofran / Reglan PRN Atrial fibrillation - Continue home carvedilol - INR today 2.7 today. Continue home Warfarin dosing. - will follow INR CAD - stent placed in past - ASA daily, carvedilol 12.5 in am and 6.25 in PM Prostate Cancer - continue finasteride 5mg PO and tamsulosin 0.4mg by mouth - will f/u with Dr. Reyes for current prostate cancer status Hypertriglyceridemia - continue fenofibrate Cough / congestion - Levaquin did not provide relief. Will hold off on this for now - CXr in ED without any findings - Duonebs Warfarin for DVT proph PT/OT ordered Son has said that with script they can get PT at the complex that they live at Continued [facility] stay due to: ambulation difficulties Reviewed: Pt Seen/Exam by Me History no new concerns appetite still low Constitutional: denies: fever Respiratory: negative: short of breath Cardiovascular: denies chest pain Gastrointestinal/Abdominal: negative: abdominal pain General Appearance: no apparent distress Respiratory: lungs clear, no respiratory distress Cardiovascular: regular rate, rhythm Gastrointestinal: normal bowel sounds, non tender, soft Neurologic/Psychiatric: alert, oriented x 3 Skin Characteristics: warm/dry Assessment/Plan Resident Physician Supervision Note: I was present with Dr. Smiley in bedside. I verified the morris history and physical, reviewed labs and image studies, discussed the case with the resident and agree with the findings and care plan.
[2017-02-27] MEDS: WARFARIN SOD 3 MG TAB PO SCH (15:42)
[2017-02-27] MEDS: TAMSULOSIN HCL 0.4 MG CAP PO SCH (21:05)
[2017-02-27] MEDS: CARVEDILOL 6.25 MG TAB PO SCH (21:06)
[2017-02-28] VITALS (8 sets, daily range): BP systolic 121–158; BP diastolic 71–79; PULSE 54–64; TEMP 36.6–37; O2SAT 93–97
[2017-02-28] MEDS: ALBUT/IPRATROP 3MG/0.5MG NEB 3 ML VIAL INH SCH ×4 (01:52→15:06)
[2017-02-28 06:44] LABS: HEMATOCRIT 32.8 % (42-52); MEAN CORPUSCULAR HEMOGLOBIN 30.5 pg (25-34); MEAN CORPUSCULAR HGB CONC 35.1 g/dl (32-36); PLATELET COUNT 296 K/uL (130-400); RED BLOOD COUNT 3.77 M/uL (4.7-6.1); WHITE BLOOD COUNT 6.83 K/uL (4.8-10.8)
[2017-02-28 07:07] LABS: PROTHROMBIN TIME (PATIENT) 45.1 SECONDS (9.0-12.0)
[2017-02-28 07:31] LABS: BUN/CREATININE RATIO 20.1 (10-20); CALCIUM 8.6 mg/dl (8.5-10.1); CREATININE 1.6 mg/dl (0.60-1.40); POTASSIUM 4.6 mmol/L (3.5-5.1)
[2017-02-28] MEDS: FINASTERIDE 5 MG TAB PO SCH (08:29)
[2017-02-28] MEDS: ASPIRIN 81 MG ECTAB PO SCH (08:29)
[2017-02-28] MEDS: FENOFIBRATE 145 MG TAB PO SCH (08:29)
[2017-02-28] MEDS: DULOXETINE HCL 20 MG CAP PO SCH (08:29)
[2017-02-28] MEDS: CETIRIZINE HCL 10 MG TAB PO SCH (08:29)
[2017-02-28] MEDS: MULTIVITAMIN TAB PO SCH (08:29)
[2017-02-28] MEDS: CARVEDILOL 12.5 MG TAB PO SCH (08:29)
[2017-02-28] MEDS: CHOLECALCIFEROL 1000 INTER.UNIT TAB PO SCH (08:30)
--- NOTE | 2017-02-28 14:44 | Discharge Instructions ---
Discharge Instructions Date of Service Feb 28, 2017. Admission Reason for Admission: Fatigue, Hyponatremia Discharge Discharge Diagnosis / Problem: Diarrhea/Fatigue due to med side effect Discharge Goals Goal(s): Decrease discomfort, Improve disease control Activity Recommendations Activity Limitations: per Instructions/Follow-up section . Instructions / Follow-Up Instructions / Follow-Up We stopped your ketoconazole and this appeared to improve your symptoms. Please follow up with your oncologist to discuss further management. Please do not take your warfarin until Dr. Lim tells you to do so. You will need to get your INR checked tomorrow. The results will be sent to Dr. Lim. Your INR on day of discharge was 4.0 If you experience any bleeding please come back to the emergency department. Please continue with outpatient physical therapy in order to improve your strength. We have written you a prescription that you can take back to [facility]. Current Hospital Diet Patient's current hospital diet: Regular Diet Discharge Diet Recommended Diet: AHA Diet (Heart Healthy) Pending Studies Studies pending at discharge: no Medical Emergencies . Who to Call and When: Medical Emergencies: If at any time you feel your situation is an emergency, please call 911 immediately. . Non-Emergent Contact Non-Emergency issues call your: Primary Care Provider, Oncologist . . "Provider Documentation" section prepared by Gregory Smiley. . VTE Core Measure Inpt VTE Proph given/why not?: Warfarin (Coumadin)
--- NOTE | 2017-02-28 14:57 | Discharge Summary ---
Discharge Summary Date of Service Feb 28, 2017. (Gregory Smiley MD) Discharge Summary Admission Date: Feb 25, 2017 at 20:37 Discharge Date: Feb 28, 2017 Discharge Disposition: Personal care Principal Diagnosis: Fatigue, hyponatremia and lack of appetite Immunizations: Have You Had Influenza Vaccine: Yes History of Tetanus Vaccine?: Unknown History of Pneumococcal: Yes History of Hepatitis B Vaccine: Unknown (Gregory Smiley MD) Problems/Secondary Diagnoses: Fatigue secondary to dehydration due to poor oral intake secondary to nausea and low appetite possibly due to Ketoconazole (Zoraida Eisenberg M.D.) Medication Reconciliation Continued Medications: Aspirin (Aspirin Ec) 81 Mg Tab 81 MG PO DAILY Carvedilol (Coreg) 12.5 Mg Tab 6.25 MG PO QPM, TAB Carvedilol (Coreg) 12.5 Mg Tab 12.5 MG PO QAM, TAB Cetirizine (Zyrtec) 10 Mg Tab 10 MG PO DAILY, TAB Cholecalciferol (Vitamin D3) 1,000 Inter.unit Tab 2000 INTER.UNIT PO QAM, #60 TAB 1 Refill Duloxetine HCl (Cymbalta) 20 Mg Cap 20 MG PO DAILY, CAP Fenofibrate (Tricor) 145 Mg Tab 145 MG PO DAILY, TAB Finasteride (Proscar) 5 Mg Tab 5 MG PO QAM, TAB Multiple Vitamin (Multivitamin) 1 Tab Tab 1 TAB PO DAILY, TAB Tamsulosin Hcl (Flomax) 0.4 Mg Cap 0.4 MG PO HS, CAP Warfarin Sod (Jantoven) 1 Mg Tab 3 MG PO Q2D, TAB Warfarin Sod (Jantoven) 2 Mg Tab 2 MG PO Q2D, TAB Discontinued Medications: Ketoconazole (Nizoral) 200 Mg Tab 200 MG PO TID, TAB Discharge Exam Patient feeling much better today and energy levels have improved His appetite is much improved Review of Systems: Constitutional: No fever, No chills, No sweats Respiratory: No cough, No sputum, No shortness of breath Cardiovascular: No chest pain, No claudication, No palpitations Abdomen: No pain, No nausea, No vomiting, No diarrhea Genitourinary - Male: No hematuria, No dysuria Endocrine: No fatigue Hematologic / Lymphatic: No abnormal bleeding/bruising, No clotting problems Physical Exam: General Appearance: WD/WN, no apparent distress Respiratory/Chest: lungs clear, no respiratory distress, no accessory muscle use Cardiovascular: no edema, no murmur, normal peripheral pulses, + irregularly irregular Abdomen / GI: normal bowel sounds, non tender, soft Extremities: no calf tenderness, normal capillary refill, normal range of motion, non-tender Neurologic/Psychiatric: alert, normal mood/affect, oriented x 3 (Gregory Smiley MD) feeling much better today in terms of strength and appetite Review of Systems: Constitutional: No fever Respiratory: No shortness of breath Cardiovascular: No chest pain Abdomen: No pain Physical Exam: General Appearance: no apparent distress Respiratory/Chest: lungs clear, no respiratory distress Cardiovascular: regular rate, rhythm Abdomen / GI: normal bowel sounds, non tender, soft Neurologic/Psychiatric: alert, oriented x 3 Skin: warm/dry (Zoraida Eisenberg M.D.) Hospital Course 81 yo M with 10 days of fatigue, anorexia, intermittent cough / nausea - found to have hyponatremia Hyponatremia - Received 1L IV fluids in the ED. - given 2 L of NS and creat 1.6 upon discharge and sodium was 127 - likely to be due to dehydration with lower baseline Fatigue - restarted new cancer med ketoconazole in late January and likely to be contributing to fatigue and loss of appetite - Spoke to Dr. Cagle and advised to stop ketoconazole and for patient to follow up in outpatient setting - flu negative in ED - Hgb 11.5 on discharge, iron panel, order iron panel, B12, folate wnl - TSH wnl CHAVA on CKD - likely sec to dehydration from poor oral intake - creatinine improved to 1.6 with GFR of 30 from 2.0 on admission - IVF given Nausea - Zofran / Reglan PRN Hx of DVT - INR 4.0 on discharge. Hold warfarin dose today. Check INR day after discharge and restart according to INR. Sent to Dr. Lim CAD - stent placed in past - ASA daily, carvedilol 12.5 in am and 6.25 in PM Prostate Cancer - continue finasteride 5mg PO and tamsulosin 0.4mg by mouth - will f/u with Dr. Reyes for current prostate cancer status Hypertriglyceridemia - continue fenofibrate Cough / congestion - Levaquin did not provide relief. Will hold off on this for now - CXr in ED without any findings - Duonebs Warfarin for DVT proph PT/OT ordered- recommend outpatient PT, patient sent with script upon discharge Total Time Spent: Less than 30 minutes This includes examination of the patient, discharge planning, medication reconciliation, and communication with other providers. (Gregory Smiley MD) Resident Physician Supervision Note: I was present with Dr. Smiley in bedside. I verified the morris history and physical, reviewed labs and image studies, discussed the case with the resident and agree with the findings and care plan. Total Time Spent: Greater than 30 minutes (40) (Zoraida Eisenberg M.D.) Discharge Instructions Please refer to the electronic Patient Visit Report (Discharge Instructions) for additional information. (Gregory Smiley MD) Additional Copies To [facility]; Moi Lim M.D.
== END 2017-02-28 16:00 | disposition home or self-care (01) | DRG 641 ==
LOC: C.EDB 17:48 → C.MED 20:37 → ENRESERV 21:09
PROVIDERS: ADMIT Hospitalist; ATTEND Family Medicine
DX: E87.1 Hypo-osmolality and hyponatremia (principal); N17.9 Acute kidney failure, unspecified; G45.9 Transient cerebral ischemic attack, unspecified; I48.91 Unspecified atrial fibrillation; Z79.01 Long term (current) use of anticoagulants; Z87.891 Personal history of nicotine dependence; Z85.46 Personal history of malignant neoplasm of prostate; R11.0 Nausea; N18.9 Chronic kidney disease, unspecified; I25.10 Atherosclerotic heart disease of native coronary artery without angina pectoris; Z98.61 Coronary angioplasty status; E78.1 Pure hyperglyceridemia; R53.83 Other fatigue; E86.0 Dehydration; R63.0 Anorexia; Z86.718 Personal history of other venous thrombosis and embolism; R05 Cough; R09.89 Other specified symptoms and signs involving the circulatory and respiratory systems

== ENCOUNTER → 2017-02-25 | Outpatient (CLI) | payer OTHER ==
[2017-02-25 08:38] LABS: INR 2.4 (0.9-1.1); PROTHROMBIN TIME (PATIENT) 27.1 SECONDS (9.0-12.0)
== END ==
LOC: C.LABOUTLO 07:55
PROVIDERS: ATTEND Pharmacist Pharmacotherapy
DX: I48.91 Unspecified atrial fibrillation (principal)

== ENCOUNTER → 2017-03-01 | Outpatient (CLI) | payer OTHER ==
[~2017-03-01] MED LIST changes: +DULO-24 PO
[2017-03-01 09:33] LABS: PROTHROMBIN TIME (PATIENT) 49.5 SECONDS (9.0-12.0)
[2017-03-01 09:35] LABS: INR 4.4 (0.9-1.1)
== END | disposition home or self-care (01) ==
LOC: C.LABOUTLO 08:41
PROVIDERS: ATTEND Student in an Organized Health Care Education/Training Program
DX: I82.409 Acute embolism and thrombosis of unspecified deep veins of unspecified lower extremity (principal)

== ENCOUNTER → 2017-03-06 | Outpatient (CLI) | payer OTHER ==
[~2017-03-06] MED LIST changes: -CYM20 PO; -DEXT30TA7 PO; -KETO200T PO; -LEVO-366 PO
[2017-03-06 09:15] LABS: INR 1.6 (0.9-1.1); PROTHROMBIN TIME (PATIENT) 17.9 SECONDS (9.0-12.0)
== END | disposition home or self-care (01) ==
LOC: C.LABOUTLO 08:48
PROVIDERS: ATTEND Pharmacist Pharmacotherapy
DX: Z01.89 Encounter for other specified special examinations (principal)

== ENCOUNTER → 2017-03-07 | Outpatient (CLI) | payer OTHER ==
[2017-03-07 09:15] LABS: TOTAL IRON BINDING CAPACITY 350 mcg/dl (250-450)
== END | disposition home or self-care (01) ==
LOC: C.LABOUTLO 08:28
DX: Z01.89 Encounter for other specified special examinations (principal)

== ENCOUNTER → 2017-03-11 | Outpatient (CLI) | payer OTHER ==
[2017-03-11 09:55] LABS: INR 1.2 (0.9-1.1); PROTHROMBIN TIME (PATIENT) 13.4 SECONDS (9.0-12.0)
== END | disposition home or self-care (01) ==
LOC: C.LABOUTLO 08:50
DX: I48.91 Unspecified atrial fibrillation (principal)

== ENCOUNTER → 2017-03-13 | Outpatient (CLI) | payer OTHER ==
[2017-03-13 09:28] LABS: LYME DISEASE AB IGM NEG (NEG)
[2017-03-13 09:29] LABS: LYME DISEASE AB IGG NEG (NEG)
--- NOTE | 2017-03-18 08:28 | CODING QUERY NO DIAGNOSIS ---
: 1935 TREATMENT RENDERED WITHOUT A DIAGNOSIS To promote full compliance with coding requirements relating to patient care, physician participation is requested in all cases of social media strategist uncertainty. Please assist us with providing a copy of the original, signed physician order including dx for the following services that were rendered on : LYME IGG + WB CONFIRM If you are unable to provide the original order, please have the physician document the dx on this letter and sign/date. Thank you Mackenzie Marks [facility] Information [facility] Once completed, please kindly fax back to [phone] For questions please call [phone]
--- NOTE | 2017-04-12 11:58 | CODING QUERY NO DIAGNOSIS ---
: 1935 TREATMENT RENDERED WITHOUT A DIAGNOSIS To promote full compliance with coding requirements relating to patient care, physician participation is requested in all cases of casing finisher and stuffer uncertainty. Please assist us with providing a diagnosis/symptom for the test(s) below: A diagnosis/symptom was not documented on your Order. A valid diagnosis/symptom is required to bill all insurances. Please remember that we are unable to code a diagnosis of rule out, probable, possible, questionable, or suspected. Tests that require a diagnosis: DOS: 03/13/17 * LYME IGG + WB CONFIRM DIAGNOSIS: * LYME IGM + WB CONFIRM DIAGNOSIS: Provider Signature: Date: Thank you Mackenzie Marks [facility] Information Management Once completed, please kindly fax back to [phone] For questions please call [phone]
== END | disposition home or self-care (01) ==
LOC: C.LABOUTLO 08:06
PROVIDERS: ATTEND Internal Medicine
DX: R53.81 Other malaise (principal); M62.81 Muscle weakness (generalized)

== ENCOUNTER → 2017-03-26 | Outpatient (CLI) | payer OTHER ==
[2017-03-26 11:07] LABS: URINE APPEARANCE CLEAR (CLEAR); URINE BILIRUBIN NEG (NEG); URINE COLOR YELLOW; URINE NITRITE NEG (NEG); URINE SPECIFIC GRAVITY 1.019 (1.000-1.030); UROBILINOGEN NEG (NEG)
[2017-03-26 11:11] LABS: MANUAL MICROSCOPIC REQUIRED? NO; REVIEW REQ? NO
== END | disposition home or self-care (01) ==
LOC: C.LABOUTLO 11:05
PROVIDERS: ATTEND Internal Medicine Hematology
DX: R41.82 Altered mental status, unspecified (principal); C61 Malignant neoplasm of prostate

== ENCOUNTER → 2017-04-02 | Outpatient (CLI) | payer OTHER ==
[2017-04-02 08:54] LABS: ALT/SGPT 20 U/L (12-78); BLOOD UREA NITROGEN 24 mg/dl (7-18); BUN/CREATININE RATIO 21.6 (10-20); CALCIUM 8.3 mg/dl (8.5-10.1); CARBON DIOXIDE 25 mmol/L (21-32); CHLORIDE 107 mmol/L (98-107); CREATININE 1.13 mg/dl (0.60-1.40); GLUCOSE 84 mg/dl (70-99); POTASSIUM 4.6 mmol/L (3.5-5.1); SODIUM 138 mmol/L (136-145)
[2017-04-02 08:55] LABS: INR 1.5 (0.9-1.1)
[2017-04-02 08:57] LABS: ALB/GLOB RATIO 0.8 (0.9-2); ALKALINE PHOSPHATASE 100 U/L (45-117); AST/SGOT 29 U/L (15-37)
== END | disposition home or self-care (01) ==
LOC: C.LABOUTLO 08:24
PROVIDERS: ATTEND Internal Medicine Hematology
DX: C61 Malignant neoplasm of prostate (principal)

== ENCOUNTER → 2017-04-18 | Outpatient (CLI) | payer OTHER, MEDICARE ==
[2017-04-18 08:41] LABS: BLOOD UREA NITROGEN 32 mg/dl (7-18); BUN/CREATININE RATIO 25.9 (10-20); CALCIUM 8.8 mg/dl (8.5-10.1); CARBON DIOXIDE 24 mmol/L (21-32); CHLORIDE 109 mmol/L (98-107); CREATININE 1.23 mg/dl (0.60-1.40); GLUCOSE 82 mg/dl (70-99); POTASSIUM 5.5 mmol/L (3.5-5.1); SODIUM 138 mmol/L (136-145)
== END | disposition home or self-care (01) ==
LOC: C.LABOUTLO 07:55
PROVIDERS: ATTEND Internal Medicine Hematology
DX: Z01.89 Encounter for other specified special examinations (principal)

== ENCOUNTER → 2017-04-19 | Outpatient (CLI) | payer OTHER, MEDICARE ==
[2017-04-19 09:24] LABS: INR 1.4 (0.9-1.1); PROTHROMBIN TIME (PATIENT) 14.7 SECONDS (9.0-12.0)
== END | disposition home or self-care (01) ==
LOC: C.LABOUTLO 08:55
PROVIDERS: ATTEND Internal Medicine
DX: I25.10 Atherosclerotic heart disease of native coronary artery without angina pectoris (principal)

== ENCOUNTER → 2017-04-25 | Outpatient (CLI) | payer OTHER, MEDICARE ==
[2017-04-25 09:15] LABS: INR 2.4 (0.9-1.1); PROTHROMBIN TIME (PATIENT) 27.1 SECONDS (9.0-12.0)
== END | disposition home or self-care (01) ==
LOC: C.LABOUTLO 07:40
PROVIDERS: ATTEND Internal Medicine
DX: I25.10 Atherosclerotic heart disease of native coronary artery without angina pectoris (principal)

== ENCOUNTER → 2017-05-03 | Outpatient (CLI) | payer OTHER, MEDICARE ==
[2017-05-03 13:09] LABS: ALBUMIN 3.1 gm/dl (3.4-5.0); ALT/SGPT 28 U/L (12-78); AST/SGOT 40 U/L (15-37); BLOOD UREA NITROGEN 30 mg/dl (7-18); CALCIUM 8.8 mg/dl (8.5-10.1); CARBON DIOXIDE 25 mmol/L (21-32); CREATININE 1.23 mg/dl (0.60-1.40); GLUCOSE 105 mg/dl (70-99); POTASSIUM 4.6 mmol/L (3.5-5.1); SODIUM 134 mmol/L (136-145)
[2017-05-03 13:11] LABS: ALKALINE PHOSPHATASE 128 U/L (45-117); TOTAL PROTEIN 7.3 gm/dl (6.4-8.2)
== END | disposition home or self-care (01) ==
LOC: C.LABOUTLO 12:53
PROVIDERS: ATTEND Internal Medicine Hematology
DX: Z01.89 Encounter for other specified special examinations (principal)

== ENCOUNTER → 2017-05-07 | Outpatient (CLI) | payer OTHER, MEDICARE ==
[2017-05-07 09:46] LABS: INR 4.9 (0.9-1.1)
== END | disposition home or self-care (01) ==
LOC: C.LABOUTLO 08:40
PROVIDERS: ATTEND Internal Medicine
DX: I48.91 Unspecified atrial fibrillation (principal)

== ENCOUNTER → 2017-05-16 | Outpatient (CLI) | payer OTHER, MEDICARE ==
[2017-05-16 09:56] LABS: ALT/SGPT 28 U/L (12-78); AST/SGOT 40 U/L (15-37); BLOOD UREA NITROGEN 31 mg/dl (7-18); BUN/CREATININE RATIO 24.6 (10-20); CARBON DIOXIDE 26 mmol/L (21-32); CHLORIDE 103 mmol/L (98-107); CREATININE 1.28 mg/dl (0.60-1.40); GLUCOSE 83 mg/dl (70-99); POTASSIUM 4.7 mmol/L (3.5-5.1); SODIUM 133 mmol/L (136-145)
[2017-05-16 09:58] LABS: ALB/GLOB RATIO 0.7 (0.9-2); ALKALINE PHOSPHATASE 117 U/L (45-117)
== END | disposition home or self-care (01) ==
LOC: C.LABOUTLO 09:13
PROVIDERS: ATTEND Internal Medicine Hematology
DX: I25.10 Atherosclerotic heart disease of native coronary artery without angina pectoris (principal); C61 Malignant neoplasm of prostate

== ENCOUNTER → 2017-05-23 | Outpatient (CLI) | payer OTHER, MEDICARE ==
[2017-05-23 08:58] LABS: INR 1.7 (0.9-1.1)
== END ==
LOC: C.LABOUTLO 08:07
PROVIDERS: ATTEND Internal Medicine
DX: I25.10 Atherosclerotic heart disease of native coronary artery without angina pectoris (principal)

== ENCOUNTER → 2017-05-30 | Outpatient (CLI) | payer OTHER, MEDICARE ==
[2017-05-30 09:12] LABS: ALT/SGPT 23 U/L (12-78); BLOOD UREA NITROGEN 33 mg/dl (7-18); BUN/CREATININE RATIO 22.8 (10-20); CALCIUM 8.7 mg/dl (8.5-10.1); CARBON DIOXIDE 25 mmol/L (21-32); CHLORIDE 105 mmol/L (98-107); CREATININE 1.46 mg/dl (0.60-1.40); GLUCOSE 87 mg/dl (70-99); SODIUM 135 mmol/L (136-145)
[2017-05-30 09:15] LABS: ALB/GLOB RATIO 0.7 (0.9-2); ALKALINE PHOSPHATASE 98 U/L (45-117); AST/SGOT 35 U/L (15-37); PROTHROMBIN TIME (PATIENT) 30.4 SECONDS (9.0-12.0)
== END | disposition home or self-care (01) ==
LOC: C.LABSPEC 08:46
PROVIDERS: ATTEND Internal Medicine
DX: I25.10 Atherosclerotic heart disease of native coronary artery without angina pectoris (principal)

== ENCOUNTER → 2017-06-06 | Outpatient (CLI) | payer OTHER, MEDICARE ==
[2017-06-06 08:56] LABS: INR 3.2 (0.9-1.1)
--- NOTE | 2017-06-18 11:46 | CODING QUERY NO DIAGNOSIS ---
Valid Physician Order Needed A valid physician order must be submitted in order to properly bill for the service(s) provided, including date of service(s), valid diagnosis, and physician signature. If these tests are done on a recurring basis the original physican order must be submitted in order to code and bill for the service(s) provided. Please fax us the original, signed physician order so that we may expedite billing to [phone] DOS 06/06/17 * PT/INR Thank you Julieth [facility] Information Management
== END | disposition home or self-care (01) ==
LOC: C.LABOUTLO 08:27
PROVIDERS: ATTEND Internal Medicine
DX: Z01.89 Encounter for other specified special examinations (principal)

== ENCOUNTER → 2017-06-13 | Outpatient (CLI) | payer OTHER, MEDICARE ==
[2017-06-13 09:08] LABS: INR 4.9 (0.9-1.1)
== END ==
LOC: C.LABOUTLO 08:15
PROVIDERS: ATTEND Internal Medicine
DX: I25.10 Atherosclerotic heart disease of native coronary artery without angina pectoris (principal)

== ENCOUNTER → 2017-06-20 | Outpatient (CLI) | payer OTHER, MEDICARE ==
[2017-06-20 08:52] LABS: INR 2.4 (0.9-1.1)
== END ==
LOC: C.LABOUTLO 08:29
PROVIDERS: ATTEND Internal Medicine
DX: I82.409 Acute embolism and thrombosis of unspecified deep veins of unspecified lower extremity (principal)

== ENCOUNTER → 2017-06-27 | Outpatient (CLI) | payer OTHER, MEDICARE ==
[2017-06-27 09:12] LABS: INR 2.3 (0.9-1.1)
== END | disposition home or self-care (01) ==
LOC: C.LABOUTLO 08:39
PROVIDERS: ATTEND Internal Medicine
DX: I25.10 Atherosclerotic heart disease of native coronary artery without angina pectoris (principal)

== ENCOUNTER → 2017-07-11 | Outpatient (CLI) | payer OTHER, MEDICARE ==
[2017-07-11 13:56] LABS: INR 2.4 (0.9-1.1)
== END | disposition home or self-care (01) ==
LOC: C.LABOUTLO 13:28
PROVIDERS: ATTEND Internal Medicine
DX: I25.10 Atherosclerotic heart disease of native coronary artery without angina pectoris (principal)

== ENCOUNTER → 2017-07-18 | Outpatient (CLI) | payer OTHER, MEDICARE ==
[2017-07-18 09:10] LABS: ALBUMIN 2.3 gm/dl (3.4-5.0); ALT/SGPT 17 U/L (12-78); BLOOD UREA NITROGEN 35 mg/dl (7-18); CALCIUM 8.6 mg/dl (8.5-10.1); CARBON DIOXIDE 25 mmol/L (21-32); CREATININE 1.46 mg/dl (0.60-1.40); GLUCOSE 79 mg/dl (70-99); POTASSIUM 4.7 mmol/L (3.5-5.1); SODIUM 135 mmol/L (136-145)
[2017-07-18 09:15] LABS: ALKALINE PHOSPHATASE 72 U/L (45-117); AST/SGOT 29 U/L (15-37); TOTAL PROTEIN 6.4 gm/dl (6.4-8.2)
== END | disposition home or self-care (01) ==
LOC: C.LABOUTLO 08:41
PROVIDERS: ATTEND Physician Assistant
DX: C61 Malignant neoplasm of prostate (principal)

== ENCOUNTER → 2017-08-01 | Outpatient (CLI) | payer OTHER, MEDICARE | END | disposition home or self-care (01) | LOC: C.LABOUTLO 08:07 | PROVIDERS: ATTEND Internal Medicine | DX: I25.10 Atherosclerotic heart disease of native coronary artery without angina pectoris (principal); Z86.718 Personal history of other venous thrombosis and embolism ==

== ENCOUNTER → 2017-08-08 | Outpatient (CLI) | payer OTHER, MEDICARE ==
[~2017-08-08] MED LIST changes: +ABIR500T PO; +CYAN100020 PO; +DEXT30TA7 PO; +DOCU-94 PO; +FERR1TAB13 PO; +PRD/25 PO; +[UNRECOGNIZED DRUG - OTHER]
== END | disposition home or self-care (01) ==
LOC: C.LABOUTLO 07:40
PROVIDERS: ATTEND Internal Medicine
DX: I25.10 Atherosclerotic heart disease of native coronary artery without angina pectoris (principal)

== ENCOUNTER → 2017-08-15 | Outpatient (CLI) | payer OTHER, MEDICARE ==
[~2017-08-15] MED LIST changes: +KFL500 PO; +SACC250C3 PO
[2017-08-15 10:07] LABS: INR 1.8 (0.9-1.1)
== END | disposition home or self-care (01) ==
LOC: C.LABOUTLO 09:05
PROVIDERS: ATTEND Internal Medicine
DX: I25.10 Atherosclerotic heart disease of native coronary artery without angina pectoris (principal)

== ENCOUNTER 2017-08-19 12:25 | Inpatient (IN) | payer OTHER, MEDICARE ==
[~2017-08-19] VITALS: Ht 175.3 cm; Wt 87.0 kg
[~2017-08-19 12:25] MED LIST changes: -ABIR500T PO; -CYAN100020 PO; -DEXT30TA7 PO; -DOCU-94 PO; -FERR1TAB13 PO; -KFL500 PO; -PRD/25 PO; -SACC250C3 PO; -[UNRECOGNIZED DRUG - OTHER]
[2017-08-19] MEDS ORDERED: SODIUM CHLORIDE 0.9% 1000ML 500 ML IV STA (13:10)
[2017-08-19] MEDS ORDERED: SODIUM CHLORIDE 0.9% 1000ML 1,000 ML IV ONE (13:10)
--- NOTE | 2017-08-19 13:29 | DIAGNOSTIC IMAGING REPORT ---
CHEST ONE VIEW PORTABLE CLINICAL HISTORY: CHEST PAIN pain COMPARISON STUDY: 02/26/2017 FINDINGS: The bones soft tissues and hemidiaphragms are normal. The cardiomediastinal silhouette is normal. The lungs are clear. The pulmonary vasculature is normal. Chronic granulomatous change. IMPRESSION: No acute process. Chronic granulomatous change. The above report was generated using voice recognition software. It may contain grammatical, syntax or spelling errors. Electronically signed by: Manohar Renee M.D. 08/19/2017 1:28 PM Dictated Date/Time: 08/19/2017 1:27 PM
--- NOTE | 2017-08-19 13:47 | EMERGENCY ROOM VISIT NOTE ---
History Report prepared by Moe: Armond Boyer Under the Supervision of: Dr. Iam Gillespie M.D. First contact with patient: 12:58 Chief Complaint: LETHARGIC Stated Complaint: LETHARGIC History of Present Illness The patient is an 81 year old male who presents to the Emergency Room from [facility] with complaints of worsening lethargy that the patient's son notes has been going on for several months. The patient's son notes that the patient is usually very conversational and active, which has decreased significantly over the past couple of months. The son also notes that his urine has been "very dark and cloudy." The patient added that he did have some "burning" with urination that began about 10 days ago. The son notes that the patient did experience a couple falls over the past couple of months, but there has not been any significant injuries, or blood in his stools. He denies any chest pain or shortness of breath, but has been having some "dizzy spells." The patient does have a history of cancer. He is on Coumadin for a DVT in the knee in 2008, as well as a TIA in 2009. 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 A total of 10 systems reviewed and were otherwise negative. Past Medical & Surgical Medical Problems: (1) Chronic anticoagulation (2) Chronic kidney disease (3) Chronic systolic CHF (congestive heart failure) (4) CKD (chronic kidney disease) stage 3, GFR 30-59 ml/min (5) Fatigue (6) H/O blood clots (7) Hip fracture (8) HLD (hyperlipidemia) (9) HTN (hypertension) (10) Hyponatremia (11) Prostate cancer Surgical Problems: (1) History of coronary artery stent placement Old medical records were reviewed. Nurse's notes were reviewed and I agree with. Family History Patient reports no known family medical history. Social History Smoking Status: Former Smoker Drug Use: none Marital Status: Housing Status: [employer] Occupation Status: retired Current/Historical Medications Scheduled Abiraterone Acetate (Zytiga), 1,000 MG PO DAILY Aspirin (Aspirin Ec), 81 MG PO DAILY Carvedilol (Coreg), 6.25 MG PO QPM Carvedilol (Coreg), 12.5 MG PO QAM Cetirizine (Zyrtec), 10 MG PO DAILY Cholecalciferol (Vitamin D3), 2,000 INTER.UNIT PO QAM Cyanocobalamin (Vitamin B12), 1,000 MCG PO DAILY Docusate Sodium (Colace), 100 MG PO HS Duloxetine HCl (Cymbalta), 20 MG PO DAILY Fenofibrate (Tricor), 145 MG PO DAILY Ferrous Sulfate (Kp Ferrous Sulfate), 325 MG PO BID Finasteride (Proscar), 5 MG PO QAM Gentamicin Sulfate (Gentamicin Sulfate), 2 SPRAYS NA TID Multiple Vitamin (Multivitamin), 1 TAB PO DAILY Prednisone (Prednisone), 2.5 MG PO BID Tamsulosin Hcl (Flomax), 0.4 MG PO HS Warfarin Sod (Jantoven), 2 MG PO DAILY Scheduled PRN Dextromethorphan-Guaifenesin (Mucinex Dm), 1 TAB PO Q12 PRN for CONGESTION Allergies Coded Allergies: No Known Allergies (Unverified , 08/19/17) Physical Exam Vital Signs Date Time Temp Pulse Resp B/P (MAP) Pulse Ox O2 Delivery O2 Flow Rate FiO2 08/19/17 16:36 71 24 95 08/19/17 16:31 141/66 08/19/17 16:25 64 22 97 08/19/17 16:01 124/60 08/19/17 16:00 67 18 124/60 97 Room Air 08/19/17 15:55 70 19 96 08/19/17 15:31 141/67 08/19/17 15:25 68 20 94 08/19/17 15:01 131/68 08/19/17 14:55 73 16 08/19/17 14:31 134/68 08/19/17 14:25 75 31 95 08/19/17 14:15 72 18 136/70 93 Room Air 08/19/17 14:15 136/70 08/19/17 13:25 67 26 93 08/19/17 13:00 96 Room Air 08/19/17 12:49 36.4 62 20 100/61 96 Room Air Physical Exam General: Moderately-ill appearing elderly male, sleepy but arousable, alert to person and month. HEENT: Normal cephalic atraumatic. Pupils are equal round and reactive to light. Extraocular movements are intact. Oropharynx is pink with moist mucous membranes. No swelling of the mouth lips or tongue. Neck: Supple with a midline trachea. No meningeal signs or stiffness, no JVD or bruits. No Stridor. Chest: Clear to auscultation bilaterally. No wheezes or rhonchi. No increased work of breathing. Heart: regular rate and rhythm. Abdomen: Soft nontender, nondistended without rebound guarding or rigidity. Extremities: No cyanosis clubbing or edema. No calf tenderness or assymetry Spine/Back. Non tender to palpation. No CVA tenderness Skin: Good turgor without rashes. Neurologic exam: Cranial nerves two through 12 are intact. Motor and sensation are intact and symmetrical throughout. Medical Decision & Procedures ER Provider Diagnostic Interpretation: Radiology results as stated below per my review and radiologist interpretation: ABD/PELVIS WITHOUT FOR STONE CT DOSE: 1026.57 mGycm HISTORY: Pain eval for urinay obst TECHNIQUE: Multiaxial CT images of the abdomen and pelvis were performed without the use of intravenous and oral contrast according to the standard department stone protocol. A dose lowering technique was utilized adhering to the principles of ALARA. COMPARISON STUDY: 02/03/2016 FINDINGS: Lung bases are considered clear. Minimal dependent atelectasis. Slight fullness of the renal collecting systems and ureters bilaterally. Mild chronic infiltrative change of the perirenal fat bilaterally stable from the prior exam. Evaluation of the distal ureters difficult given metallic artifact from the patient's total left hip prosthetic. Etiology of the fullness of the ureters is not known. Nonobstructive bowel pattern. Mild chronic diverticulosis of the sigmoid. No evidence for mass collection or abscess. IMPRESSION: 1. Mild fullness of the renal collecting systems and ureters bilaterally of uncertain significance. 2. Dilation of the distal ureters problematic due to artifact from patient's total left hip prosthetic. 3. Chronic sigmoid diverticulosis. The above report was generated using voice recognition software. It may contain grammatical, syntax or spelling errors. Electronically signed by: Manohar Renee M.D. 08/19/2017 2:24 PM Dictated Date/Time: 08/19/2017 2:09 PM CHEST ONE VIEW PORTABLE CLINICAL HISTORY: CHEST PAIN pain COMPARISON STUDY: 02/26/2017 FINDINGS: The bones soft tissues and hemidiaphragms are normal. The cardiomediastinal silhouette is normal. The lungs are clear. The pulmonary vasculature is normal. Chronic granulomatous change. IMPRESSION: No acute process. Chronic granulomatous change. The above report was generated using voice recognition software. It may contain grammatical, syntax or spelling errors. Electronically signed by: Manohar Renee M.D. 08/19/2017 1:28 PM Dictated Date/Time: 08/19/2017 1:[address] OF THE HEAD WITHOUT CONTRAST CLINICAL HISTORY: Weakness. Altered mental status. COMPARISON STUDY: Head CT April 09, 2016. CT DOSE: 1003.45 mGycm TECHNIQUE: Helical axial images of the head were obtained without IV contrast. Automated exposure control was utilized for the study. A dose lowering technique was utilized adhering to the principles of ALARA. FINDINGS: Exam is mildly compromised by motion artifact. No acute intracranial hemorrhage, midline shift or mass effect is present. Ventricular system is stable. Basilar cisterns are patent. There are no extra-axial collections. White matter hypodensities are unchanged and suggest small vessel disease. There are no findings to suggest acute dural sinus thrombosis or acute territorial infarct. There are no significant calvarial abnormalities. Visualized portions of the sinuses and mastoid air cells are clear. IMPRESSION: No acute intracranial findings. Electronically signed by: Deuce Ro M.D. 08/19/2017 2:07 PM Dictated Date/Time: 08/19/2017 2:05 PM Laboratory Results 08/19/17 13:31 Red Blood Count 3.27, Mean Corpuscular Volume 94.5, Mean Corpuscular Hemoglobin 30.9, Mean Corpuscular Hemoglobin Concent 32.7, Mean Platelet Volume 9.4, Neutrophils (%) (Auto) 72.6, Lymphocytes (%) (Auto) 14.0, Monocytes (%) (Auto) 11.5, Eosinophils (%) (Auto) 1.2, Basophils (%) (Auto) 0.4, Neutrophils # (Auto ) 7.00, Lymphocytes # (Auto) 1.35, Monocytes # (Auto) 1.11, Eosinophils # (Auto ) 0.12, Basophils # (Auto) 0.04 08/19/17 13:31 Test 08/19/17 13:31 08/19/17 13:39 08/19/17 13:40 08/19/17 15:04 White Blood Count 9.65 K/uL (4.8-10.8) Red Blood Count 3.27 M/uL (4.7-6.1) Hemoglobin 10.1 g/dL (14.0-18.0) Hematocrit 30.9 % (42-52) Mean Corpuscular Volume 94.5 fL (80-100) Mean Corpuscular Hemoglobin 30.9 pg (25-34) Mean Corpuscular Hemoglobin Concent 32.7 g/dl (32-36) Platelet Count 275 K/uL (130-400) Mean Platelet Volume 9.4 fL (7.4-10.4) Neutrophils (%) (Auto) 72.6 % Lymphocytes (%) (Auto) 14.0 % Monocytes (%) (Auto) 11.5 % Eosinophils (%) (Auto) 1.2 % Basophils (%) (Auto) 0.4 % Neutrophils # (Auto) 7.00 K/uL (1.4-6.5) Lymphocytes # (Auto) 1.35 K/uL (1.2-3.4) Monocytes # (Auto) 1.11 K/uL (0.11-0.59) Eosinophils # (Auto) 0.12 K/uL (0-0.5) Basophils # (Auto) 0.04 K/uL (0-0.2) RDW Standard Deviation 51.0 fL (36.4-46.3) RDW Coefficient of Variation 14.8 % (11.5-14.5) Immature Granulocyte % (Auto) 0.3 % Immature Granulocyte # (Auto) 0.03 K/uL (0.00-0.02) Prothrombin Time 30.6 SECONDS (9.0-12.0) Prothromb Time International Ratio 3.0 (0.9-1.1) Activated Partial Thromboplast Time 43.6 SECONDS (21.0-31.0) Partial Thromboplastin Ratio 1.7 Anion Gap 8.0 mmol/L (3-11) Est Creatinine Clear Calc Drug Dose 41.3 ml/min Estimated GFR () 50.0 Estimated GFR (Non- 43.1 BUN/Creatinine Ratio 18.5 (10-20) Calcium Level 8.2 mg/dl (8.5-10.1) Total Bilirubin 0.8 mg/dl (0.2-1) Direct Bilirubin 0.5 mg/dl (0-0.2) Aspartate Amino Transf (AST/SGOT) 31 U/L (15-37) Alanine Aminotransferase (ALT/SGPT) 18 U/L (12-78) Alkaline Phosphatase 85 U/L (45-117) Total Creatine Kinase 36 U/L (39-308) Creatine Kinase MB < 0.5 ng/ml (0.5-3.6) Creatine Kinase MB Ratio (0-3.0) Total Protein 6.6 gm/dl (6.4-8.2) Albumin 2.4 gm/dl (3.4-5.0) Lipase 200 U/L (73-393) Thyroid Stimulating Hormone (TSH) 1.770 uIu/ml (0.300-4.500) Bedside Lactic Acid Venous 0.63 mmol/L (0.90-1.70) Bedside Troponin I < 0.030 ng/ml (0-0.045) Urine Color YELLOW Urine Appearance TURBID (CLEAR) Urine pH 5.5 (4.5-7.5) Urine Specific Odum 1.011 (1.000-1.030) Urine Protein 1+ (NEG) Urine Glucose (UA) NEG (NEG) Urine Ketones NEG (NEG) Urine Occult Blood 1+ (NEG) Urine Nitrite NEG (NEG) Urine Bilirubin NEG (NEG) Urine Urobilinogen NEG (NEG) Urine Leukocyte Esterase LARGE (NEG) Urine WBC (Auto) >30 /hpf (0-5) Urine RBC (Auto) 0-4 /hpf (0-4) Urine Hyaline Casts (Auto) 1-5 /lpf (0-5) Urine Epithelial Cells (Auto) 5-10 /lpf (0-5) Urine Bacteria (Auto) 4+ (NEG) Laboratory studies as stated above per my review. Medications Administered Medications (Trade) Dose Ordered Sig/Ashley Route Start Time Stop Time Status Last Admin Dose Admin Sodium Chloride 500 ml @ 999 mls/hr Q31M STAT IV 08/19/17 13:10 08/19/17 13:40 DC 08/19/17 13:35 999 MLS/HR Sodium Chloride 1,000 ml @ 150 mls/hr Q6H40M ONCE IV 3/12/18 13:10 08/19/17 19:26 DC 08/19/17 14:15 150 MLS/HR Ceftriaxone Sodium (Rocephin Inj) 1 gm NOW STAT IV 08/19/17 15:57 08/19/17 15:58 DC 08/19/17 16:46 1 GM ECG Per My Interpretation Indication: weakness (lethargy) Rate (beats per minute): 68 Rhythm: normal sinus Findings: other (LVH, no PVCs, no CHARLINE/STD) Comparison ECG Date: 02/25/2017 Change: no significant change ED Course 1259: Past medical records reviewed. The patient was evaluated in room A10, and a complete history and physical examination were performed. 1310: Ordered Sodium Chloride 1000 mL @ 150 mL/hr IV, 500 mL @ 999 mL/hr IV. 1402: The patient has just returned back from CT at this time. 1440: I spoke with the patient we are waiting on a urine samples. 1511: I checked on the patient he is comfortable and sleeping. 1541: I checked on the patient he is doing well. 1557: Ordered Rocephin 1 gm IV. 1610: I discussed the case with Dr. Karan Henriquez - [facility] Hospitalist. He will evaluate the patient for further treatment. Medical Decision Differential Diagnosis includes; dehydration, sepsis, UTI, intracranial hemorrhage, intracranial hematoma, electrolyte or metabolic abnormality, complications related to cancer. This patient comes in as described above. He was placed in room A10. He has had some increasing lethargy and he does look pale on my exam. he has a very complex medical history. he is on a blood thinners and reports no blood loss. His urine has been dark. He has had no reported fever. Urinalysis and culture is obtained as well as other multiple blood tests including blood cultures and lactic acid and cardiac workup. He has had a CAT scan of his head and abdomen. Chest x-ray was obtained and shows no evidence to suggest congestive heart failure, pneumonia ,or pneumothorax. He was reassessed frequently. He has no white count or fever here. He has no significant electrolyte or metabolic abnormalities. CAT scan of his head is unremarkable. CAT scan of his abdomen does not show any evidence of obstructive uropathy. His urinalysis does suggest a UTI. He was given IV Rocephin. Blood and urine cultures have been obtained. Given his infection and altered mental status and confusion and the fact that he is on blood thinners, I do think he needs to be admitted?observed for further treatment. Medication Reconcilliation Current Medication List: was personally reviewed by me Blood Pressure Screening Patient's blood pressure: Normal blood pressure Consults Time Called: 1601 Consulting Physician: Dr. Karan SEVERINO Hospitalist Returned Call: 1610 I discussed the case with Dr. Karan SEVERINO Hospitalist. He will evaluate the patient for further treatment. Impression Primary Impression: UTI (urinary tract infection) Additional Impressions: Altered mental status Weakness Scribe Attestation The scribe's documentation has been prepared under my direction and personally reviewed by me in its entirety. I confirm that the note above accurately reflects all work, treatment, procedures, and medical decision making performed by me. Departure Information Dispostion Being Evaluated By Hospitalist Referrals No Doctor, Assigned (PCP) Patient Instructions My [facility] Problem Qualifiers
[2017-08-19 13:48] LABS: BASO % 0.4 %; BASO ABS # 0.04 K/uL (0-0.2); EOS % 1.2 %; EOS ABS # 0.12 K/uL (0-0.5); HEMATOCRIT 30.9 % (42-52); HEMOGLOBIN 10.1 g/dL (14.0-18.0); IG# 0.03 K/uL (0.00-0.02); LYMPH ABS # 1.35 K/uL (1.2-3.4); MEAN CELL VOLUME 94.5 fL (80-100); MEAN CORPUSCULAR HEMOGLOBIN 30.9 pg (25-34); MEAN CORPUSCULAR HGB CONC 32.7 g/dl (32-36); MEAN PLATELET VOLUME 9.4 fL (7.4-10.4); MONO % 11.5 %; MONO ABS # 1.11 K/uL (0.11-0.59); NEUT % 72.6 %; PLATELET COUNT 275 K/uL (130-400); RED CELL DISTRIBUTION WIDTH CV 14.8 % (11.5-14.5); WHITE BLOOD COUNT 9.65 K/uL (4.8-10.8)
[2017-08-19 14:00] LABS: ALBUMIN 2.4 gm/dl (3.4-5.0); ALT/SGPT 18 U/L (12-78); AST/SGOT 31 U/L (15-37); BLOOD UREA NITROGEN 27 mg/dl (7-18); CALCIUM 8.2 mg/dl (8.5-10.1); CARBON DIOXIDE 24 mmol/L (21-32); CREATININE 1.48 mg/dl (0.60-1.40); GLUCOSE 98 mg/dl (70-99); LIPASE 200 U/L (73-393); POTASSIUM 4.1 mmol/L (3.5-5.1); SODIUM 132 mmol/L (136-145)
[2017-08-19 14:01] LABS: PTT PATIENT 43.6 SECONDS (21.0-31.0)
[2017-08-19 14:05] LABS: ALKALINE PHOSPHATASE 85 U/L (45-117); CKMB < 0.5 ng/ml (0.5-3.6); TOTAL PROTEIN 6.6 gm/dl (6.4-8.2)
--- NOTE | 2017-08-19 14:08 | DIAGNOSTIC IMAGING REPORT ---
CT OF THE HEAD WITHOUT CONTRAST CLINICAL HISTORY: Weakness. Altered mental status. COMPARISON STUDY: Head CT April 09, 2016. CT DOSE: 1003.45 mGycm TECHNIQUE: Helical axial images of the head were obtained without IV contrast. Automated exposure control was utilized for the study. A dose lowering technique was utilized adhering to the principles of ALARA. FINDINGS: Exam is mildly compromised by motion artifact. No acute intracranial hemorrhage, midline shift or mass effect is present. Ventricular system is stable. Basilar cisterns are patent. There are no extra-axial collections. White matter hypodensities are unchanged and suggest small vessel disease. There are no findings to suggest acute dural sinus thrombosis or acute territorial infarct. There are no significant calvarial abnormalities. Visualized portions of the sinuses and mastoid air cells are clear. IMPRESSION: No acute intracranial findings. Electronically signed by: Deuce Ro M.D. 08/19/2017 2:07 PM Dictated Date/Time: 08/19/2017 2:05 PM
--- NOTE | 2017-08-19 14:25 | DIAGNOSTIC IMAGING REPORT ---
ABD/PELVIS WITHOUT FOR STONE CT DOSE: 1026.57 mGycm HISTORY: Pain eval for urinay obst TECHNIQUE: Multiaxial CT images of the abdomen and pelvis were performed without the use of intravenous and oral contrast according to the standard department stone protocol. A dose lowering technique was utilized adhering to the principles of ALARA. COMPARISON STUDY: 02/03/2016 FINDINGS: Lung bases are considered clear. Minimal dependent atelectasis. Slight fullness of the renal collecting systems and ureters bilaterally. Mild chronic infiltrative change of the perirenal fat bilaterally stable from the prior exam. Evaluation of the distal ureters difficult given metallic artifact from the patient's total left hip prosthetic. Etiology of the fullness of the ureters is not known. Nonobstructive bowel pattern. Mild chronic diverticulosis of the sigmoid. No evidence for mass collection or abscess. IMPRESSION: 1. Mild fullness of the renal collecting systems and ureters bilaterally of uncertain significance. 2. Dilation of the distal ureters problematic due to artifact from patient's total left hip prosthetic. 3. Chronic sigmoid diverticulosis. The above report was generated using voice recognition software. It may contain grammatical, syntax or spelling errors. Electronically signed by: Manohar Renee M.D. 08/19/2017 2:24 PM Dictated Date/Time: 08/19/2017 2:09 PM
[2017-08-19] MEDS ORDERED: [UNRECOGNIZED DRUG - OTHER] (14:27)
[2017-08-19] MEDS ORDERED: CYAN100020 PO (14:27)
[2017-08-19] MEDS ORDERED: DEXT30TA7 PO (14:27)
[2017-08-19] MEDS ORDERED: ABIR500T PO (14:27)
[2017-08-19] MEDS ORDERED: DOCU-94 PO (14:27)
[2017-08-19] MEDS ORDERED: PRD/25 PO (14:27)
[2017-08-19] MEDS ORDERED: FERR1TAB13 PO (14:27)
[2017-08-19] MEDS ORDERED: CEFTRIAXONE SOD INJ 1 GM ADDVIAL IV STA (15:57)
--- NOTE | 2017-08-19 16:51 | History and Physical ---
History & Physical Date & Time of Service: Aug 19, 2017 at 16:45 Chief Complaint: Lethargic Primary Care Physician: No Doctor, Assigned History of Present Illness Source: patient This is an 81 yo M w PMHx of chronic systolic CHF s/p 1 cardiac stent, HTN, HLD , CAD, COPD on chronic prednisone not on supplemental O2, prostate cx, CKD stage III, chronic anticoagulation for hx of DVT 10 years ago presenting with confusion and lethargy. Patient notes that he has experienced increased frequency for about the last week along with dysuria. He has been eating and drinking poorly and notes a decreased urine output., The patient denies any fevers chills or sweats. He was found to dirty UA and pending culture, this likely represents a UTI. His son Leo, is present at bedside he mentions that the patient has sustained approximately 3 falls within the last month and is concerned with him being on chronic Coumadin the patient is currently a resident of [facility]. The patient does use a walker for ambulation at baseline. He lives with his who has severe dementia. Here in the ER UA was done showing large esterase, greater than 30 urine WBCs, 4 + bacteria. The patient was started on ceftriaxone IV. WBC is 9.65 without left shift. Afebrile, VSS Past Medical/Surgical History Medical Problems: (1) Chronic anticoagulation (2) Chronic kidney disease (3) Chronic systolic CHF (congestive heart failure) (4) CKD (chronic kidney disease) stage 3, GFR 30-59 ml/min (5) Fatigue (6) H/O blood clots (7) Hip fracture (8) HLD (hyperlipidemia) (9) HTN (hypertension) (10) Hyponatremia (11) Prostate cancer Surgical Problems: (1) History of coronary artery stent placement Family History Patient reports no known family medical history. Social History Smoking Status: Former Smoker Smokeless Tobacco Use: No Alcohol Use: none Drug Use: none Marital Status: Housing status: assisted living Occupational Status: retired Immunizations History of Influenza Vaccine: Yes History of Tetanus Vaccine?: Unknown History of Pneumococcal: Yes History of Hepatitis B Vaccine: Unknown Allergies Coded Allergies: No Known Allergies (Unverified , 08/19/17) Home Medications Scheduled Abiraterone Acetate (Zytiga), 1,000 MG PO DAILY Aspirin (Aspirin Ec), 81 MG PO DAILY Carvedilol (Coreg), 6.25 MG PO QPM Carvedilol (Coreg), 12.5 MG PO QAM Cetirizine (Zyrtec), 10 MG PO DAILY Cholecalciferol (Vitamin D3), 2,000 INTER.UNIT PO QAM Cyanocobalamin (Vitamin B12), 1,000 MCG PO DAILY Docusate Sodium (Colace), 100 MG PO HS Duloxetine HCl (Cymbalta), 20 MG PO DAILY Fenofibrate (Tricor), 145 MG PO DAILY Ferrous Sulfate (Kp Ferrous Sulfate), 325 MG PO BID Finasteride (Proscar), 5 MG PO QAM Gentamicin Sulfate (Gentamicin Sulfate), 2 SPRAYS NA TID Multiple Vitamin (Multivitamin), 1 TAB PO DAILY Prednisone (Prednisone), 2.5 MG PO BID Tamsulosin Hcl (Flomax), 0.4 MG PO HS Warfarin Sod (Jantoven), 2 MG PO DAILY Scheduled PRN Dextromethorphan-Guaifenesin (Mucinex Dm), 1 TAB PO Q12 PRN for CONGESTION Review of Systems Constitutional: No fever, sweats or chills Eyes: No diplopia, no worsening or blurred vision ENT: normal hearing, no trouble swallowing, + dry mouth Respiratory: + chronic cough, minimal sputum production, dyspnea at rest or on exertion Cardiovascular: No chest pain, tightness or palpitations Abdomen: No pain, nausea, vomiting, diarrhea or constipation Musculoskeletal: No joint pain, calf pain, swelling Neurologic: + hx of falls - see HPI, No weakness, numbness/tingling, or balance problems Psychiatric: No anxiety or depression Skin: No rash or itch Physical Exam Vital Signs Date Time Temp Pulse Resp B/P (MAP) Pulse Ox O2 Delivery O2 Flow Rate FiO2 08/19/17 14:15 72 18 136/70 93 Room Air 08/19/17 13:00 96 Room Air 08/19/17 12:49 36.4 62 20 100/61 96 Room Air General: sleep upon entry easily awakened, alert, no apparent distress Head: Normocephalic, atraumatic ENT: PERRL, EOMI, no pharyngeal exudate, mucous membranes dry Chest: on room air, no adventitious breath sounds, + mild cough nonproductive. Cardiac: Regular rate and rhythm, no murmur, no JVD, normal peripheral pulses, good capillary refill Abdominal: NABS x 4 quadrants, soft, nontender to palpation, no rebound, guarding or tenderness Extremities: + few abrasions on lower extremities, no ecchymosis, no peripheral edema or erythema, calfs nontender to palpation Psych: Normal mood and affect Neuro: AAO x 3, strength intact bilaterally and related 5/5, no motor deficits, speech is clear, no peripheral sensory deficits Diagnostics Laboratory Results Results Past 24 Hours Test 08/19/17 13:31 08/19/17 13:39 08/19/17 13:40 08/19/17 15:04 Range/Units White Blood Count 9.65 4.8-10.8 K/uL Red Blood Count 3.27 4.7-6.1 M/uL Hemoglobin 10.1 14.0-18.0 g/dL Hematocrit 30.9 42-52 % Mean Corpuscular Volume 94.5 80-100 fL Mean Corpuscular Hemoglobin 30.9 25-34 pg Mean Corpuscular Hemoglobin Concent 32.7 32-36 g/dl Platelet Count 275 130-400 K/uL Mean Platelet Volume 9.4 7.4-10.4 fL Neutrophils (%) (Auto) 72.6 % Lymphocytes (%) (Auto) 14.0 % Monocytes (%) (Auto) 11.5 % Eosinophils (%) (Auto) 1.2 % Basophils (%) (Auto) 0.4 % Neutrophils # (Auto) 7.00 1.4-6.5 K/uL Lymphocytes # (Auto) 1.35 1.2-3.4 K/uL Monocytes # (Auto) 1.11 0.11-0.59 K/uL Eosinophils # (Auto) 0.12 0-0.5 K/uL Basophils # (Auto) 0.04 0-0.2 K/uL RDW Standard Deviation 51.0 36.4-46.3 fL RDW Coefficient of Variation 14.8 11.5-14.5 % Immature Granulocyte % (Auto) 0.3 % Immature Granulocyte # (Auto) 0.03 0.00-0.02 K/uL Prothrombin Time 30.6 9.0-12.0 SECONDS Prothromb Time International Ratio 3.0 0.9-1.1 Activated Partial Thromboplast Time 43.6 21.0-31.0 SECONDS Partial Thromboplastin Ratio 1.7 Sodium Level 132 136-145 mmol/L Potassium Level 4.1 3.5-5.1 mmol/L Chloride Level 100 98-107 mmol/L Carbon Dioxide Level 24 21-32 mmol/L Anion Gap 8.0 3-11 mmol/L Blood Urea Nitrogen 27 7-18 mg/dl Creatinine 1.48 0.60-1.40 mg/dl Est Creatinine Clear Calc Drug Dose 41.3 ml/min Estimated GFR () 50.0 Estimated GFR (Non- 43.1 BUN/Creatinine Ratio 18.5 10-20 Random Glucose 98 70-99 mg/dl Calcium Level 8.2 8.5-10.1 mg/dl Total Bilirubin 0.8 0.2-1 mg/dl Direct Bilirubin 0.5 0-0.2 mg/dl Aspartate Amino Transf (AST/SGOT) 31 15-37 U/L Alanine Aminotransferase (ALT/SGPT) 18 12-78 U/L Alkaline Phosphatase 85 45-117 U/L Total Creatine Kinase 36 39-308 U/L Creatine Kinase MB < 0.5 0.5-3.6 ng/ml Creatine Kinase MB Ratio 0-3.0 Total Protein 6.6 6.4-8.2 gm/dl Albumin 2.4 3.4-5.0 gm/dl Lipase 200 73-393 U/L Bedside Lactic Acid Venous 0.63 0.90-1.70 mmol/L Bedside Troponin I < 0.030 0-0.045 ng/ml Urine Color YELLOW Urine Appearance TURBID CLEAR Urine pH 5.5 4.5-7.5 Urine Specific [place] 1.011 1.000-1.030 Urine Protein 1+ NEG Urine Glucose (UA) NEG NEG Urine Ketones NEG NEG Urine Occult Blood 1+ NEG Urine Nitrite NEG NEG Urine Bilirubin NEG NEG Urine Urobilinogen NEG NEG Urine Leukocyte Esterase LARGE NEG Urine WBC (Auto) >30 0-5 /hpf Urine RBC (Auto) 0-4 0-4 /hpf Urine Hyaline Casts (Auto) 1-5 0-5 /lpf Urine Epithelial Cells (Auto) 5-10 0-5 /lpf Urine Bacteria (Auto) 4+ NEG Microbiology Results 08/19/17 Blood Culture, Received Pending 08/19/17 Blood Culture, Received Pending 08/19/17 Urine Culture, Received Pending Diagnostic Radiology CT OF THE HEAD WITHOUT CONTRAST CLINICAL HISTORY: Weakness. Altered mental status. COMPARISON STUDY: Head CT April 09, 2016. CT DOSE: 1003.45 mGycm TECHNIQUE: Helical axial images of the head were obtained without IV contrast. Automated exposure control was utilized for the study. A dose lowering technique was utilized adhering to the principles of ALARA. FINDINGS: Exam is mildly compromised by motion artifact. No acute intracranial hemorrhage, midline shift or mass effect is present. Ventricular system is stable. Basilar cisterns are patent. There are no extra-axial collections. White matter hypodensities are unchanged and suggest small vessel disease. There are no findings to suggest acute dural sinus thrombosis or acute territorial infarct. There are no significant calvarial abnormalities. Visualized portions of the sinuses and mastoid air cells are clear. IMPRESSION: No acute intracranial findings. Electronically signed by: Deuce Ro M.D. 08/19/2017 2:07 PM Dictated Date/Time: 08/19/2017 2:05 PM The status of this report is Signed. CHEST ONE VIEW PORTABLE CLINICAL HISTORY: CHEST PAIN pain COMPARISON STUDY: 02/26/2017 FINDINGS: The bones soft tissues and hemidiaphragms are normal. The cardiomediastinal silhouette is normal. The lungs are clear. The pulmonary vasculature is normal. Chronic granulomatous change. IMPRESSION: No acute process. Chronic granulomatous change. The above report was generated using voice recognition software. It may contain grammatical, syntax or spelling errors. Electronically signed by: Manohar Renee M.D. 08/19/2017 1:28 PM Dictated Date/Time: 08/19/2017 1:27 PM The status of this report is Signed. ABD/PELVIS WITHOUT FOR STONE CT DOSE: 1026.57 mGycm HISTORY: Pain eval for urinay obst TECHNIQUE: Multiaxial CT images of the abdomen and pelvis were performed without the use of intravenous and oral contrast according to the standard department stone protocol. A dose lowering technique was utilized adhering to the principles of ALARA. COMPARISON STUDY: 02/03/2016 FINDINGS: Lung bases are considered clear. Minimal dependent atelectasis. Slight fullness of the renal collecting systems and ureters bilaterally. Mild chronic infiltrative change of the perirenal fat bilaterally stable from the prior exam. Evaluation of the distal ureters difficult given metallic artifact from the patient's total left hip prosthetic. Etiology of the fullness of the ureters is not known. Nonobstructive bowel pattern. Mild chronic diverticulosis of the sigmoid. No evidence for mass collection or abscess. ABD/PELVIS WITHOUT FOR STONE IMPRESSION: 1. Mild fullness of the renal collecting systems and ureters bilaterally of uncertain significance. 2. Dilation of the distal ureters problematic due to artifact from patient's total left hip prosthetic. 3. Chronic sigmoid diverticulosis. EKG Normal sinus rhythm with sinus arrhythmia Moderate voltage criteria for LVH, may be normal variant Borderline ECG When compared with ECG of 25-FEB-2017 18:34, IN interval has decreased Vent. rate 68 BPM IN interval 180 ms QRS duration 78 ms QT/QTc 384/408 ms P-R-T axes -10 -9 1 Impression Assessment and Plan This is an 81 yo M w PMHx of chronic systolic CHF s/p 1 cardiac stent, HTN, HLD , CAD, COPD on chronic prednisone not on supplemental O2, prostate cx, CKD stage III, chronic anticoagulation for hx of DVT 10 years ago, depression and anxiety presenting with confusion and lethargy. Patient notes that he has experienced increased frequency for about the last week along with dysuria. He has been eating and drinking poorly and notes a decreased urine output., The patient denies any fevers chills or sweats. He was found to dirty UA and pending culture, this likely represents a UTI. Confusion/ lethargy UTI - Admit the patient to MedSurg - Received 1 dose ceftriaxone in the ER, will start on cefepime and vancomycin - WBC = 9K - UCx and BCx x 2 in process - follow - Encourage oral intake - patient has had poor appetite over the last week. - Cr= 1.48 increased from baseline of 1.2 - CT abd/pelvis reviewed but nonspecific for any stone findings, consider renal ultrasound for hydronephrosis if no improvement in urine outs - CT head reviewed -consider MRI if worsening confusion or lethargy - LFTs appear to be WNL, mildly bumped total bili - the patient does not appear to be jaundiced, will check ammonia with morning labs - lactobacillus tab po for GI ppx. Chronic systolic CHF, s/p 1 cardiac stent HTN HLD - Sp fluid bolus in the ER, pt looks clinically dry. - Continue aspirin 81 mg daily,carvedilol 12.5 QAM and 6.25 QPM, fenofibrate 145 mg daily - Holding coumadin COPD - pt does not wear supplemental O2 at baseline, follows with Dr. Hopson as an outpatient. - Stress dose steroids for now, home regimen of prednisone 2.5 mg BID Hx of DVT -Patient home regimen of Coumadin is 2 mg daily, INR equals 3.0, will hold warfarin tonight. -CT of the head reviewed which was negative for any intracranial abnormality. If worsening confusion would consider MRI of the brain to rule out any bleed due to patient's history of 3 falls within the past month -Discussion regarding anticoagulation risks versus benefit should be held with the patient/family prior to discharge. History of prostate cancer -Continue Flomax 0.4 mg daily, finasteride 5 mg daily Depression/ anxiety - Continue cymbalta 20 mg daily DVT ppx: Teds, SCDs, no chemical anticoagulation as INR borderline supratherapeutic -resume Coumadin when able CODE STATUS full code Disposition: Patient from [facility] to assist with dc planning, PT/OT evals. I personally interviewed and examined the patient. I agree with history of present illness and physical exam mentioned above, I also performed my own history taking and examination. Past medical history and review of system has been obtained by myself I reviewed all pertinent labs and studies Reviewed current medications I discussed and formulated of the assessment and plan mentioned above mentioned by ELVIS Santiago. Please refer to the Summary mentioned below. 81-year-old man with past medical history of chronic systolic congestive heart failure, hypertension, dyslipidemia, COPD, he had history of prostate cancer status post resection but due to recent elevation in PSA he was started on Zytiga and low-dose prednisone. History of DVT when he had any surgery, currently on Coumadin with supratherapeutic INR of 3, patient developed generalized weakness, multiple falls, presented to the ED and was found to have urinary tract infection. Assessment Septic shock, secondary to UTI Relative adrenal insufficiency UTI present on admission Metabolic instability secondary to above Supratherapeutic INR Plan Broad-spectrum antibiotic CT abdomen reviewed, no perinephric abscess or hydronephrosis Patient will need urology evaluation as an outpatient Stress dose steroids Hold Coumadin IV fluid hydration General Appearance: not in acute distress Eyes: normal Sclerae, extraocular muscle intact ENT: hearing grossly normal Neck: supple Respiratory/Chest: normal air entry bilateral ,no respiratory distress, no accessory muscle use Cardiovascular: regular rate, rhythm, no murmur Abdomen: non tender, soft, no masses Extremities: no edema Neurologic/Psychiatric: Awake alert oriented times place and person moves all extremities sensation intact cranial nerves II-12 appear to be intact Skin: normal color, warm/dry, no rash Jazmin Henriquez MD, [facility] Advanced Directives Existing Advance Directive: Yes Existing Living Will: Yes Resuscitation Status VTE Prophylaxis Will order VTE Prophylaxis: Yes Reason for no VTE drug order: Contraindicated
[2017-08-19] MEDS ORDERED: POLYETHYLENE (MIRALAX) 17 GM PACK PO PRN (17:00)
[2017-08-19] MEDS ORDERED: ONDANSETRON INJ 2 MG/ML 2 ML VIAL IV PRN (17:00)
[2017-08-19] MEDS ORDERED: ACETAMINOPHEN 325 MG TAB PO PRN (17:00)
[2017-08-19 18:18] VITALS: BP 128/64; PULSE 72; TEMP 36.4; O2SAT 93; Ht 175.3 cm; Wt 87.0 kg
[2017-08-19] MEDS ORDERED: VANCOMYCIN CONSULT ACTIVE PRN (18:30)
[2017-08-19] MEDS ORDERED: VANCOMYCIN INJ 2,000 MG in SODIUM CHLORIDE 0.9% 500ML 500 ML IV ONE (19:45)
[2017-08-19 20:00] VITALS: O2SAT 93
--- NOTE | 2017-08-19 20:14 | Pharmacy Progress Note ---
Pharmacy Antibiotic Consult Date of Service: Aug 19, 2017. Pharmacy Dosing Scope Pharmacy is consulted to initiate vancomycin IV dosing therapy, order appropriate labs and adjust drug dose/frequency. Subjective The patient is a 81 year old male admitted on Aug 19, 2017 at 16:56. Objective Height (Feet): 5 Height (Inches): 9.00 Weight (Kilograms): 87.000 Lab Results (24hrs): Test 08/19/17 13:31 08/19/17 13:39 08/19/17 13:40 08/19/17 15:04 White Blood Count 9.65 K/uL (4.8-10.8) Red Blood Count 3.27 M/uL (4.7-6.1) Hemoglobin 10.1 g/dL (14.0-18.0) Hematocrit 30.9 % (42-52) Mean Corpuscular Volume 94.5 fL (80-100) Mean Corpuscular Hemoglobin 30.9 pg (25-34) Mean Corpuscular Hemoglobin Concent 32.7 g/dl (32-36) Platelet Count 275 K/uL (130-400) Mean Platelet Volume 9.4 fL (7.4-10.4) Neutrophils (%) (Auto) 72.6 % Lymphocytes (%) (Auto) 14.0 % Monocytes (%) (Auto) 11.5 % Eosinophils (%) (Auto) 1.2 % Basophils (%) (Auto) 0.4 % Neutrophils # (Auto) 7.00 K/uL (1.4-6.5) Lymphocytes # (Auto) 1.35 K/uL (1.2-3.4) Monocytes # (Auto) 1.11 K/uL (0.11-0.59) Eosinophils # (Auto) 0.12 K/uL (0-0.5) Basophils # (Auto) 0.04 K/uL (0-0.2) RDW Standard Deviation 51.0 fL (36.4-46.3) RDW Coefficient of Variation 14.8 % (11.5-14.5) Immature Granulocyte % (Auto) 0.3 % Immature Granulocyte # (Auto) 0.03 K/uL (0.00-0.02) Prothrombin Time 30.6 SECONDS (9.0-12.0) Prothromb Time International Ratio 3.0 (0.9-1.1) Activated Partial Thromboplast Time 43.6 SECONDS (21.0-31.0) Partial Thromboplastin Ratio 1.7 Sodium Level 132 mmol/L (136-145) Potassium Level 4.1 mmol/L (3.5-5.1) Chloride Level 100 mmol/L (98-107) Carbon Dioxide Level 24 mmol/L (21-32) Anion Gap 8.0 mmol/L (3-11) Blood Urea Nitrogen 27 mg/dl (7-18) Creatinine 1.48 mg/dl (0.60-1.40) Est Creatinine Clear Calc Drug Dose 41.3 ml/min Estimated GFR () 50.0 Estimated GFR (Non- 43.1 BUN/Creatinine Ratio 18.5 (10-20) Random Glucose 98 mg/dl (70-99) Calcium Level 8.2 mg/dl (8.5-10.1) Total Bilirubin 0.8 mg/dl (0.2-1) Direct Bilirubin 0.5 mg/dl (0-0.2) Aspartate Amino Transf (AST/SGOT) 31 U/L (15-37) Alanine Aminotransferase (ALT/SGPT) 18 U/L (12-78) Alkaline Phosphatase 85 U/L (45-117) Total Creatine Kinase 36 U/L (39-308) Creatine Kinase MB < 0.5 ng/ml (0.5-3.6) Creatine Kinase MB Ratio (0-3.0) Total Protein 6.6 gm/dl (6.4-8.2) Albumin 2.4 gm/dl (3.4-5.0) Lipase 200 U/L (73-393) Thyroid Stimulating Hormone (TSH) 1.770 uIu/ml (0.300-4.500) Bedside Lactic Acid Venous 0.63 mmol/L (0.90-1.70) Bedside Troponin I < 0.030 ng/ml (0-0.045) Urine Color YELLOW Urine Appearance TURBID (CLEAR) Urine pH 5.5 (4.5-7.5) Urine Specific [place] 1.011 (1.000-1.030) Urine Protein 1+ (NEG) Urine Glucose (UA) NEG (NEG) Urine Ketones NEG (NEG) Urine Occult Blood 1+ (NEG) Urine Nitrite NEG (NEG) Urine Bilirubin NEG (NEG) Urine Urobilinogen NEG (NEG) Urine Leukocyte Esterase LARGE (NEG) Urine WBC (Auto) >30 /hpf (0-5) Urine RBC (Auto) 0-4 /hpf (0-4) Urine Hyaline Casts (Auto) 1-5 /lpf (0-5) Urine Epithelial Cells (Auto) 5-10 /lpf (0-5) Urine Bacteria (Auto) 4+ (NEG) Assessment & Plan Patient started on vancomycin for possible UTI. Blood cultures and urine culture pending. Vancomycin: * LD of vancomycin 2000 mg (~23 mg/kg) x 1 given * Will start maintenance dose of vancomycin 1000 mg (~12 mg/kg) iv q 18 hrs to achieve an estimated trough 15-20 mcg/ml * Will order a trough prior to the 0200 dose on 08/22 to ensure therapeutic * Estimated kinetics: t1/2~18 hrs, ke~0.03 hr-1, CrCl ~41 ml/min Pharmacy will continue to follow and will adjust dose/frequency as necessary. Thank you
[2017-08-19] MEDS: FERROUS SULFATE 325 MG TAB PO SCH (20:47)
[2017-08-19] MEDS: TAMSULOSIN HCL 0.4 MG CAP PO SCH (20:48)
[2017-08-19] MEDS: DOCUSATE SODIUM 100 MG CAP PO SCH (20:48)
[2017-08-19] MEDS: CARVEDILOL 6.25 MG TAB PO SCH (20:48)
[2017-08-19] MEDS ORDERED: VANCOMYCIN INJ 500 MG in SODIUM CHLORIDE 0.9% 250ML 250 ML IV SCH (21:00)
[2017-08-19] MEDS: HYDROCORTISONE IV 50 MG in SYRINGE 0 ML IV SCH (21:08)
[2017-08-19 23:02] VITALS: BP 138/74; PULSE 74; TEMP 36.7; O2SAT 93
[2017-08-20] VITALS: O2SAT 93
[2017-08-20 05:48] LABS: BASO % 0.3 %; BASO ABS # 0.02 K/uL (0-0.2); HEMATOCRIT 29.6 % (42-52); HEMOGLOBIN 9.6 g/dL (14.0-18.0); IG# 0.02 K/uL (0.00-0.02); LYMPH % 9.3 %; LYMPH ABS # 0.63 K/uL (1.2-3.4); MEAN CELL VOLUME 95.8 fL (80-100); MEAN CORPUSCULAR HEMOGLOBIN 31.1 pg (25-34); MEAN CORPUSCULAR HGB CONC 32.4 g/dl (32-36); MEAN PLATELET VOLUME 9.7 fL (7.4-10.4); MONO % 3.2 %; MONO ABS # 0.22 K/uL (0.11-0.59); NEUT % 86.9 %; PLATELET COUNT 251 K/uL (130-400); RED CELL DISTRIBUTION WIDTH CV 14.7 % (11.5-14.5); RED CELL DISTRIBUTION WIDTH SD 51.6 fL (36.4-46.3); WHITE BLOOD COUNT 6.79 K/uL (4.8-10.8)
[2017-08-20 05:58] LABS: INR 3.3 (0.9-1.1)
[2017-08-20 06:18] LABS: CREATININE 1.23 mg/dl (0.60-1.40); POTASSIUM 3.8 mmol/L (3.5-5.1)
[2017-08-20 07:37] VITALS: BP 143/78; PULSE 62; TEMP 36.5; O2SAT 99
--- NOTE | 2017-08-20 07:57 | Clinical Documentation Query ---
CLINICAL DOCUMENTATION QUERY Dr. MARCIAL, In your clinical opinion is this patient being managed for: ( ) Metabolic encephalopathy ( ) Not Agree ( ) Other explanation of clinical findings (Please Explain) ( ) Unable to determine (Please Define) ( ) Need to Discuss The medical record reflects the following clinical findings, treatment, and risk factors. Clinical Indicators: 81 yo male presenting with increasing lethargy and diagnosed with a UTI. CT head negative for acute changes. Treatment: 500 cc NSS bolus then 1L NSS 150 cc/hr, IV vancomcyin, IV cefepime, IV rocephin, pending blood and urine cx Risk Factors: UTI, age Please clarify and document your clinical opinion in the progress notes and discharge summary. Terms such as "probable", "suspected", "likely", "questionable", "possible", or "still to be ruled out" are acceptable. IF IN AGREEMENT, YOU MUST DOCUMENT ABOVE DIAGNOSTIC STATEMENT IN DAILY PROGRESS NOTES AND DISCHARGE SUMMARY. This document is not part of the patient's record. Thank You, Brittany Gandhi, TAMMI [phone]
[2017-08-20] MEDS ORDERED: CEFTRIAXONE SOD INJ 500 MG in DEXTROSE 5% 50ML 50 ML IV SCH (08:00)
[2017-08-20] MEDS ORDERED: CEFEPIME IV 1,000 MG in DEXTROSE 5% 100ML 100 ML IV SCH (08:00)
[2017-08-20] MEDS: FERROUS SULFATE 325 MG TAB PO SCH ×2 (08:19→16:27)
[2017-08-20] MEDS: HYDROCORTISONE IV 50 MG in SYRINGE 0 ML IV SCH (08:19)
[2017-08-20] MEDS: FINASTERIDE 5 MG TAB PO SCH (08:20)
[2017-08-20] MEDS: FENOFIBRATE 145 MG TAB PO SCH (08:20)
[2017-08-20] MEDS: CARVEDILOL 12.5 MG TAB PO SCH (08:20)
[2017-08-20] MEDS: ASPIRIN 81 MG ECTAB PO SCH (08:20)
[2017-08-20] MEDS: CETIRIZINE HCL 10 MG TAB PO SCH (08:20)
[2017-08-20] MEDS: MULTIVITAMIN TAB PO SCH (08:21)
[2017-08-20] MEDS: DULOXETINE HCL 20 MG CAP PO SCH (08:21)
[2017-08-20] MEDS: LACTOBACILLUS ACIDOPHILUS (FLORANEX) TAB PO SCH ×3 (08:21→16:27)
[2017-08-20] MEDS: CHOLECALCIFEROL 1000 INTER.UNIT TAB PO SCH (08:21)
[2017-08-20] MEDS: CEFEPIME IV 1,000 MG in SYRINGE 0 ML IV SCH (08:25)
--- NOTE | 2017-08-20 09:41 | Hospitalist Progress Note ---
Hospitalist Progress Note Date of Service Aug 20, 2017. (Mackenzie Hammonds PA-C) Subjective Pt evaluation today including: conversation w/ patient, physical exam, chart review, lab review, review of studies, review of inpatient medication list Patient seen and evaluated. Confusion seems to be residing. No family at bedside to assess for baseline mentation. He looks well and has no complaints. States he has chronic reduced urinary stream and urinary frequency. States his son is to bring in his medication Zytiga that he takes with his steroids. Constitutional: No fever, No chills Respiratory: No cough, No shortness of breath Cardiovascular: No chest pain Abdomen: No pain, No nausea, No vomiting, No diarrhea, No constipation Male : + urinary frequency (chronic), + slowing stream (chronic) Heme: No abnormal bleeding/bruising Skin: No rash (Mackenzie Hammonds, JAMARC) Medications Current Inpatient Medications Medications (Trade) Dose Ordered Sig/Ashley Route Start Time Stop Time Status Last Admin Dose Admin Acetaminophen (Tylenol Tab) 650 mg Q4H PRN PO 08/19/17 17:00 09/18/17 16:59 Polyethylene (Miralax Powder Packet) 17 gm DAILY PRN PO 08/19/17 17:00 09/18/17 16:59 Ondansetron HCl (Zofran Inj) 4 mg Q6H PRN IV 08/19/17 17:00 09/18/17 16:59 Aspirin (Ecotrin Tab) 81 mg DAILY PO 08/20/17 08:00 09/19/17 08:59 08/20/17 08:20 81 MG Carvedilol (Coreg Tab) 6.25 mg QPM PO 08/19/17 21:00 09/18/17 20:59 08/19/17 20:48 6.25 MG Carvedilol (Coreg Tab) 12.5 mg QAM PO 08/20/17 08:00 09/19/17 08:59 08/20/17 08:20 12.5 MG Cetirizine HCl (zyrTEC TAB) 10 mg DAILY PO 08/20/17 08:00 09/19/17 08:59 08/20/17 08:20 10 MG Cholecalciferol (Vitamin D Tab) 2,000 inter.unit QAM PO 08/20/17 08:00 09/19/17 08:59 08/20/17 08:21 2,000 INTER.UNIT Docusate Sodium (coLACE CAP) 100 mg HS PO 08/19/17 21:00 09/18/17 20:59 Duloxetine HCl (Cymbalta Cap) 20 mg DAILY PO 08/20/17 08:00 09/19/17 08:59 08/20/17 08:21 20 MG Fenofibrate (Tricor Tab) 145 mg DAILY PO 08/20/17 08:00 09/19/17 08:59 08/20/17 08:20 145 MG Finasteride (Proscar Tab) 5 mg QAM PO 08/20/17 08:00 09/19/17 08:59 08/20/17 08:20 5 MG Multivitamins (Multivitamin Tab) 1 tab DAILY PO 08/20/17 08:00 09/19/17 08:59 08/20/17 08:21 1 TAB Tamsulosin HCl (Flomax Cap) 0.4 mg HS PO 08/19/17 21:00 09/18/17 20:59 08/19/17 20:48 0.4 MG Ferrous Sulfate (Feosol Tab) 325 mg BIDM PO 08/19/17 18:00 09/18/17 17:59 08/20/17 16:27 325 MG Hydrocortisone Sodium Succinate 50 mg/Syringe 1 ml @ 4 mls/min Q12 IV 08/19/17 21:00 09/18/17 20:59 08/20/17 08:19 4 MLS/MIN Lactobacillus Acidophilus (Floranex Tab) 4 tab TIDM PO 08/20/17 08:00 09/19/17 07:59 08/20/17 16:27 4 TAB Cefepime HCl 1000 mg/Syringe 11 ml @ 5.5 mls/min DAILY IV 08/20/17 08:00 08/30/17 07:59 08/20/17 08:25 5.5 MLS/MIN (Mackenzie Hammonds, JAMARC) Objective Vital Signs Date Time Temp Pulse Resp B/P (MAP) Pulse Ox O2 Delivery O2 Flow Rate FiO2 08/20/17 07:37 36.5 62 18 143/78 (99) 99 Room Air 08/20/17 00:00 93 Room Air 08/19/17 23:02 36.7 74 18 138/74 (95) 93 Room Air 08/19/17 20:00 93 Room Air 08/19/17 18:45 72 19 128/64 93 08/19/17 18:18 36.4 72 19 128/64 93 Room Air 08/19/17 18:15 71 18 121/77 93 Room Air 08/19/17 17:10 72 08/19/17 17:06 70 19 95 08/19/17 17:01 128/64 08/19/17 16:36 71 24 95 08/19/17 16:31 141/66 08/19/17 16:25 64 22 97 08/19/17 16:01 124/60 08/19/17 16:00 67 18 124/60 97 Room Air 08/19/17 15:55 70 19 96 08/19/17 15:31 141/67 08/19/17 15:25 68 20 94 08/19/17 15:01 131/68 08/19/17 14:55 73 16 08/19/17 14:31 134/68 08/19/17 14:25 75 31 95 08/19/17 14:15 72 18 136/70 93 Room Air 08/19/17 14:15 136/70 08/19/17 13:25 67 26 93 08/19/17 13:00 96 Room Air 08/19/17 12:49 36.4 62 20 100/61 96 Room Air (Mackenzie Hammonds, PA-C) Physical Exam General Appearance: WD/WN, no apparent distress Eyes: sclerae normal Neck: supple, no JVD, trachea midline Respiratory/Chest: lungs clear, normal breath sounds, no respiratory distress, no accessory muscle use Cardiovascular: regular rate, rhythm, no gallop, no murmur Abdomen: normal bowel sounds, non tender, soft Extremities: no pedal edema Neurologic/Psychiatric: alert Skin: normal color (Mackenzie Hammonds, PA-C) Laboratory Results Last 24 Hours Test 08/19/17 13:31 08/19/17 13:39 08/19/17 13:40 08/19/17 15:04 White Blood Count 9.65 K/uL Red Blood Count 3.27 M/uL Hemoglobin 10.1 g/dL Hematocrit 30.9 % Mean Corpuscular Volume 94.5 fL Mean Corpuscular Hemoglobin 30.9 pg Mean Corpuscular Hemoglobin Concent 32.7 g/dl Platelet Count 275 K/uL Mean Platelet Volume 9.4 fL Neutrophils (%) (Auto) 72.6 % Lymphocytes (%) (Auto) 14.0 % Monocytes (%) (Auto) 11.5 % Eosinophils (%) (Auto) 1.2 % Basophils (%) (Auto) 0.4 % Neutrophils # (Auto) 7.00 K/uL Lymphocytes # (Auto) 1.35 K/uL Monocytes # (Auto) 1.11 K/uL Eosinophils # (Auto) 0.12 K/uL Basophils # (Auto) 0.04 K/uL RDW Standard Deviation 51.0 fL RDW Coefficient of Variation 14.8 % Immature Granulocyte % (Auto) 0.3 % Immature Granulocyte # (Auto) 0.03 K/uL Prothrombin Time 30.6 SECONDS Prothromb Time International Ratio 3.0 Activated Partial Thromboplast Time 43.6 SECONDS Partial Thromboplastin Ratio 1.7 Sodium Level 132 mmol/L Potassium Level 4.1 mmol/L Chloride Level 100 mmol/L Carbon Dioxide Level 24 mmol/L Anion Gap 8.0 mmol/L Blood Urea Nitrogen 27 mg/dl Creatinine 1.48 mg/dl Est Creatinine Clear Calc Drug Dose 41.3 ml/min Estimated GFR () 50.0 Estimated GFR (Non- 43.1 BUN/Creatinine Ratio 18.5 Random Glucose 98 mg/dl Calcium Level 8.2 mg/dl Total Bilirubin 0.8 mg/dl Direct Bilirubin 0.5 mg/dl Aspartate Amino Transf (AST/SGOT) 31 U/L Alanine Aminotransferase (ALT/SGPT) 18 U/L Alkaline Phosphatase 85 U/L Total Creatine Kinase 36 U/L Creatine Kinase MB < 0.5 ng/ml Creatine Kinase MB Ratio Total Protein 6.6 gm/dl Albumin 2.4 gm/dl Lipase 200 U/L Thyroid Stimulating Hormone (TSH) 1.770 uIu/ml Bedside Lactic Acid Venous 0.63 mmol/L Bedside Troponin I < 0.030 ng/ml Urine Color YELLOW Urine Appearance TURBID Urine pH 5.5 Urine Specific [place] 1.011 Urine Protein 1+ Urine Glucose (UA) NEG Urine Ketones NEG Urine Occult Blood 1+ Urine Nitrite NEG Urine Bilirubin NEG Urine Urobilinogen NEG Urine Leukocyte Esterase LARGE Urine WBC (Auto) >30 /hpf Urine RBC (Auto) 0-4 /hpf Urine Hyaline Casts (Auto) 1-5 /lpf Urine Epithelial Cells (Auto) 5-10 /lpf Urine Bacteria (Auto) 4+ Test 08/20/17 05:26 White Blood Count 6.79 K/uL Red Blood Count 3.09 M/uL Hemoglobin 9.6 g/dL Hematocrit 29.6 % Mean Corpuscular Volume 95.8 fL Mean Corpuscular Hemoglobin 31.1 pg Mean Corpuscular Hemoglobin Concent 32.4 g/dl Platelet Count 251 K/uL Mean Platelet Volume 9.7 fL Neutrophils (%) (Auto) 86.9 % Lymphocytes (%) (Auto) 9.3 % Monocytes (%) (Auto) 3.2 % Eosinophils (%) (Auto) 0.0 % Basophils (%) (Auto) 0.3 % Neutrophils # (Auto) 5.90 K/uL Lymphocytes # (Auto) 0.63 K/uL Monocytes # (Auto) 0.22 K/uL Eosinophils # (Auto) 0.00 K/uL Basophils # (Auto) 0.02 K/uL RDW Standard Deviation 51.6 fL RDW Coefficient of Variation 14.7 % Immature Granulocyte % (Auto) 0.3 % Immature Granulocyte # (Auto) 0.02 K/uL Prothrombin Time 33.5 SECONDS Prothromb Time International Ratio 3.3 Sodium Level 134 mmol/L Potassium Level 3.8 mmol/L Chloride Level 104 mmol/L Carbon Dioxide Level 19 mmol/L Anion Gap 11.0 mmol/L Blood Urea Nitrogen 28 mg/dl Creatinine 1.23 mg/dl Est Creatinine Clear Calc Drug Dose 49.7 ml/min Estimated GFR () 62.5 Estimated GFR (Non- 54.0 BUN/Creatinine Ratio 22.5 Random Glucose 118 mg/dl Calcium Level 8.0 mg/dl Ammonia 26.0 umol/L (Mackenzie Hammonds, PAVirginiaC) Assessment and Plan This is an 81 yo M w PMHx of chronic systolic CHF s/p 1 cardiac stent, HTN, HLD , CAD, COPD on chronic prednisone not on supplemental O2, prostate cx, CKD stage III, chronic anticoagulation for hx of DVT 10 years ago, depression and anxiety presenting with confusion and lethargy. Patient notes that he has experienced increased frequency for about the last week along with dysuria. He has been eating and drinking poorly and notes a decreased urine output., The patient denies any fevers chills or sweats. He was found to dirty UA and pending culture, this likely represents a UTI. Metabolic Encephalopathy 2/2 UTI and Dehydration: RESOLVING - Cefepime 1 g IV daily and Vanc - Await UCx - currently gram neg bacilli growing - Reduce stress dose Solu-Cortef to 25 mg BID and continue to taper Chronic Systolic CHF and CAD S/P PCI and HTN/HLD: Appears Euvolemic - ASA 81 mg daily and Tricor 145 mg daily - Coreg 12.5 mg AM and 6.25 mg PM COPD without Exacerbation: Follows with Dr. Hopson H/O DVT on Chronic Coumadin: Supratherapeutic INR: - Continue to hold Coumadin and trend INR prior to re-institution H/O Prostate CA: STABLE - Proscar 5 mg daily and Flomax 0.4 mg daily - Planning to bring in Zytiga Depression/Anxiety: STABLE - Cymbalta 20 mg daily Frequent Falls: - PT/OT evaluations for appropriate discharge planning DVT Prophylaxis: Supratherapeutic INR Code Status: FULL RESUSCITATION Disposition: Resident of [facility] - reporting some balance deficits and possible SNF vs return to [facility] Continued [facility] stay due to: multiple IV medications needed Discharge planning: uncertain (Mackenzie Hammonds, PA-C) Attending Attestation: Pt seen/examined, chart reviewed, care plan d/w ELVIS Hammonds. I agree w/ the morris components of her documentation. Pt eating during my visit. Feels better. Mildly confused, asking how many hospitals there are in [place]. Poor urinary stream. Son confirms multiple falls over last few weeks. Son confirms cognitive impairment at baseline. VSS no fever gen - looks good neck - no JVD heart - RRR, s1, s2 lungs - CTA b/l abd - soft, NT, ND, BS+ ext - no edema A/P: UTI - due to GNR - await final culture, cont cefepime; d/c vanco. metabolic encephalopathy 2nd to UTI - supportive care. falls - PT, OT evals. prostate ca - resume zytiga; on stress dose steroids (has been on prednisone x 2 -3 months per son); wean steroids tomorrow. anemia - due to prostate ca?? CBC angie. Eli SANCHEZ MD (David Sanchez MD)
[2017-08-20] MEDS ORDERED: VANCOMYCIN INJ 1,000 MG in SODIUM CHLORIDE 0.9% 250ML 250 ML IV SCH (14:00)
[2017-08-20 15:24] VITALS: BP 150/84; PULSE 83; TEMP 36.5; O2SAT 98
[2017-08-20 16:00] VITALS: O2SAT 98
[2017-08-20] MEDS: DOCUSATE SODIUM 100 MG CAP PO SCH (21:00)
[2017-08-20] MEDS: HYDROCORTISONE IV 25 MG in SYRINGE 0 ML IV SCH (21:23)
[2017-08-20] MEDS: CARVEDILOL 6.25 MG TAB PO SCH (21:25)
[2017-08-20] MEDS: TAMSULOSIN HCL 0.4 MG CAP PO SCH (21:25)
[2017-08-20 23:21] VITALS: BP 132/76; PULSE 58; TEMP 36.6; O2SAT 98
[2017-08-21] VITALS (9 sets, daily range): BP systolic 111–170; BP diastolic 60–77; PULSE 56–68; TEMP 36.4–36.8; O2SAT 96–98
[2017-08-21 05:49] LABS: BASO % 0.1 %; BASO ABS # 0.01 K/uL (0-0.2); EOS % 0.1 %; EOS ABS # 0.01 K/uL (0-0.5); HEMATOCRIT 26.7 % (42-52); HEMOGLOBIN 8.7 g/dL (14.0-18.0); IG# 0.03 K/uL (0.00-0.02); LYMPH % 15.2 %; LYMPH ABS # 1.19 K/uL (1.2-3.4); MEAN CELL VOLUME 94.3 fL (80-100); MEAN CORPUSCULAR HEMOGLOBIN 30.7 pg (25-34); MEAN CORPUSCULAR HGB CONC 32.6 g/dl (32-36); MEAN PLATELET VOLUME 9.6 fL (7.4-10.4); MONO % 7.1 %; MONO ABS # 0.56 K/uL (0.11-0.59); NEUT % 77.1 %; NEUT ABS # 6.05 K/uL (1.4-6.5); PLATELET COUNT 269 K/uL (130-400); RED CELL DISTRIBUTION WIDTH CV 14.4 % (11.5-14.5); WHITE BLOOD COUNT 7.85 K/uL (4.8-10.8)
[2017-08-21 06:15] LABS: INR 3.2 (0.9-1.1)
[2017-08-21 06:31] LABS: CALCIUM 8.1 mg/dl (8.5-10.1); CREATININE 1.54 mg/dl (0.60-1.40); POTASSIUM 3.9 mmol/L (3.5-5.1)
[2017-08-21] MEDS ORDERED: NON-FORMULARY MEDICATION SCH (08:45)
[2017-08-21] MEDS: HYDROCORTISONE IV 25 MG in SYRINGE 0 ML IV SCH (09:06)
[2017-08-21] MEDS: CEFEPIME IV 1,000 MG in SYRINGE 0 ML IV SCH (09:06)
[2017-08-21] MEDS: CETIRIZINE HCL 10 MG TAB PO SCH (09:06)
[2017-08-21] MEDS: CHOLECALCIFEROL 1000 INTER.UNIT TAB PO SCH (09:06)
[2017-08-21] MEDS: DOCUSATE SODIUM 100 MG CAP PO SCH (09:06)
[2017-08-21] MEDS: CARVEDILOL 12.5 MG TAB PO SCH (09:07)
[2017-08-21] MEDS: FINASTERIDE 5 MG TAB PO SCH (09:07)
[2017-08-21] MEDS: FERROUS SULFATE 325 MG TAB PO SCH ×2 (09:07→16:07)
[2017-08-21] MEDS: LACTOBACILLUS ACIDOPHILUS (FLORANEX) TAB PO SCH ×3 (09:07→16:08)
[2017-08-21] MEDS: FENOFIBRATE 145 MG TAB PO SCH (09:07)
[2017-08-21] MEDS: ASPIRIN 81 MG ECTAB PO SCH (09:08)
[2017-08-21] MEDS: DULOXETINE HCL 20 MG CAP PO SCH (09:08)
[2017-08-21] MEDS: MULTIVITAMIN TAB PO SCH (09:08)
[2017-08-21] MEDS: ZYTIGA 500 MG PO SCH (16:06)
--- NOTE | 2017-08-21 16:18 | Hospitalist Progress Note ---
Hospitalist Progress Note Date of Service Aug 21, 2017. (Mackenzie Hammonds PA-C) Subjective Pt evaluation today including: conversation w/ patient, physical exam, chart review, lab review, review of studies, review of inpatient medication list Patient seen and evaluated. No acute events overnight. Patient states he is feeling well today. No pain or any other complaints. States he feels like he is urinating easier. Tolerating a diet well. Constitutional: No fever, No chills Respiratory: No cough, No shortness of breath Cardiovascular: No chest pain Abdomen: No pain, No nausea, No vomiting, No diarrhea, No constipation Musculoskeletal: No swelling, No calf pain Male : + slowing stream (chronic), No dysuria Skin: No rash (Mackenzie Hammonds PA-C) Medications Current Inpatient Medications Medications (Trade) Dose Ordered Sig/Ashley Route Start Time Stop Time Status Last Admin Dose Admin Acetaminophen (Tylenol Tab) 650 mg Q4H PRN PO 08/19/17 17:00 09/18/17 16:59 Polyethylene (Miralax Powder Packet) 17 gm DAILY PRN PO 08/19/17 17:00 09/18/17 16:59 Ondansetron HCl (Zofran Inj) 4 mg Q6H PRN IV 08/19/17 17:00 09/18/17 16:59 Aspirin (Ecotrin Tab) 81 mg DAILY PO 08/20/17 08:00 09/19/17 08:59 08/21/17 09:08 81 MG Carvedilol (Coreg Tab) 6.25 mg QPM PO 08/19/17 21:00 09/18/17 20:59 08/20/17 21:25 6.25 MG Carvedilol (Coreg Tab) 12.5 mg QAM PO 08/20/17 08:00 09/19/17 08:59 08/21/17 09:07 12.5 MG Cetirizine HCl (zyrTEC TAB) 10 mg DAILY PO 08/20/17 08:00 09/19/17 08:59 08/21/17 09:06 10 MG Cholecalciferol (Vitamin D Tab) 2,000 inter.unit QAM PO 08/20/17 08:00 09/19/17 08:59 08/21/17 09:06 2,000 INTER.UNIT Docusate Sodium (coLACE CAP) 100 mg HS PO 08/19/17 21:00 09/18/17 20:59 08/21/17 09:06 100 MG Duloxetine HCl (Cymbalta Cap) 20 mg DAILY PO 08/20/17 08:00 09/19/17 08:59 08/21/17 09:08 20 MG Fenofibrate (Tricor Tab) 145 mg DAILY PO 08/20/17 08:00 09/19/17 08:59 08/21/17 09:07 145 MG Finasteride (Proscar Tab) 5 mg QAM PO 08/20/17 08:00 09/19/17 08:59 08/21/17 09:07 5 MG Multivitamins (Multivitamin Tab) 1 tab DAILY PO 08/20/17 08:00 09/19/17 08:59 08/21/17 09:08 1 TAB Tamsulosin HCl (Flomax Cap) 0.4 mg HS PO 08/19/17 21:00 09/18/17 20:59 08/20/17 21:25 0.4 MG Ferrous Sulfate (Feosol Tab) 325 mg BIDM PO 08/19/17 18:00 09/18/17 17:59 08/21/17 09:07 325 MG Lactobacillus Acidophilus (Floranex Tab) 4 tab TIDM PO 08/20/17 08:00 09/19/17 07:59 08/21/17 12:49 4 TAB Cephalexin Monohydrate (Keflex Cap) 500 mg BID PO 08/21/17 20:00 08/31/17 19:59 Non-Formulary Medication (Non-Formulary Patient'S Own Med) 2 ea DAILY@1600 PO 08/21/17 16:00 09/20/17 15:59 Prednisone (PredniSONE TAB) 2.5 mg BID PO 08/21/17 20:00 09/20/17 19:59 Alprazolam (Xanax Tab) 0.25 mg HS ONCE PO 08/21/17 21:00 08/21/17 21:01 (Mackenzie Hammonds, JENNIE) Objective Vital Signs Date Time Temp Pulse Resp B/P (MAP) Pulse Ox O2 Delivery O2 Flow Rate FiO2 08/21/17 15:37 36.6 60 20 145/69 (94) 98 Room Air 08/21/17 12:09 36.8 60 18 136/77 (96) 96 Room Air 08/21/17 12:01 98 Room Air 08/21/17 08:45 68 18 124/67 (86) 08/21/17 08:29 98 Room Air 08/21/17 07:41 36.5 56 18 170/72 (104) 98 Room Air 08/21/17 00:00 Room Air 08/20/17 23:21 36.6 58 20 132/76 (94) 98 Room Air (Mackenzie Hammonds PA-C) Physical Exam General Appearance: WD/WN, no apparent distress ENT: hearing grossly normal Neck: supple, no JVD, trachea midline Respiratory/Chest: lungs clear, normal breath sounds, no respiratory distress, no accessory muscle use Cardiovascular: regular rate, rhythm, no gallop, no murmur Abdomen: normal bowel sounds, non tender, soft Extremities: no pedal edema, no calf tenderness Neurologic/Psychiatric: alert Skin: normal color, warm/dry (Mackenzie Hammonds PA-C) Laboratory Results Last 24 Hours Test 08/21/17 05:32 White Blood Count 7.85 K/uL Red Blood Count 2.83 M/uL Hemoglobin 8.7 g/dL Hematocrit 26.7 % Mean Corpuscular Volume 94.3 fL Mean Corpuscular Hemoglobin 30.7 pg Mean Corpuscular Hemoglobin Concent 32.6 g/dl Platelet Count 269 K/uL Mean Platelet Volume 9.6 fL Neutrophils (%) (Auto) 77.1 % Lymphocytes (%) (Auto) 15.2 % Monocytes (%) (Auto) 7.1 % Eosinophils (%) (Auto) 0.1 % Basophils (%) (Auto) 0.1 % Neutrophils # (Auto) 6.05 K/uL Lymphocytes # (Auto) 1.19 K/uL Monocytes # (Auto) 0.56 K/uL Eosinophils # (Auto) 0.01 K/uL Basophils # (Auto) 0.01 K/uL RDW Standard Deviation 50.0 fL RDW Coefficient of Variation 14.4 % Immature Granulocyte % (Auto) 0.4 % Immature Granulocyte # (Auto) 0.03 K/uL Red Blood Cell Morphology Unremarkable Prothrombin Time 32.8 SECONDS Prothromb Time International Ratio 3.2 Sodium Level 134 mmol/L Potassium Level 3.9 mmol/L Chloride Level 103 mmol/L Carbon Dioxide Level 21 mmol/L Anion Gap 10.0 mmol/L Blood Urea Nitrogen 37 mg/dl Creatinine 1.54 mg/dl Est Creatinine Clear Calc Drug Dose 39.7 ml/min Estimated GFR () 47.6 Estimated GFR (Non- 41.1 BUN/Creatinine Ratio 24.0 Random Glucose 146 mg/dl Calcium Level 8.1 mg/dl (Mackenzie Hammonds, PACarolin) Assessment and Plan This is an 81 yo M w PMHx of chronic systolic CHF s/p 1 cardiac stent, HTN, HLD , CAD, COPD on chronic prednisone not on supplemental O2, prostate cx, CKD stage III, chronic anticoagulation for hx of DVT 10 years ago, depression and anxiety presenting with confusion and lethargy. Patient notes that he has experienced increased frequency for about the last week along with dysuria. He has been eating and drinking poorly and notes a decreased urine output., The patient denies any fevers chills or sweats. He was found to dirty UA and pending culture, this likely represents a UTI. Metabolic Encephalopathy 2/2 UTI and Dehydration: RESOLVED - Growing Citrobacter koseri that is pansensitive - placed on Keflex 500 mg BID x 14 days total - no evidence of prostatitis on BESSY - Return to home dosing of steroids - Prednisone 2.5 mg BID Chronic Systolic CHF and CAD S/P PCI and HTN/HLD: Appears Euvolemic - ASA 81 mg daily and Tricor 145 mg daily - Coreg 12.5 mg AM and 6.25 mg PM COPD without Exacerbation: Follows with Dr. Hopson H/O DVT on Chronic Coumadin: Supratherapeutic INR: - Continue to hold Coumadin and trend INR prior to re-institution - likely can resume tomorrow pending INR H/O Prostate CA: STABLE - Proscar 5 mg daily and Flomax 0.4 mg daily - Continue Zytiga Depression/Anxiety: STABLE - Cymbalta 20 mg daily Frequent Falls: - PT/OT evaluations DVT Prophylaxis: Supratherapeutic INR Code Status: FULL RESUSCITATION Disposition: Resident of [facility] - reporting some balance deficits and possible SNF vs return to [facility] -- Would appreciate PT/OT assessment tomorrow to see if goals are being met to return to [facility] Discharge planning: home with home health (Mackenzie Hammonds, PA-C) Attending Attestation: Pt seen/examined, chart reviewed, care plan d/w PA Mackenzie Hammonds. I agree w/ the morris components of her documentation. Had insomnia last evening. Otherwise feeling better w/ good appetite. Urine stream is improved. VSS no fever gen - looks good neck - no JVD heart - RRR, s1, s2 lungs - minimal exp wheeze b/l abd - soft, NT, ND, BS+ ext - no edema BESSY - prostate mildly enlarged but not boggy, not tender, no obvious nodules A/P: citrobacter UTI - can narrow abx today to PO and Rx for 7 days; no evidence of prostatitis on exam metabolic encephalopathy 2nd to UTI - resolved falls - PT, OT evals appreciated; PT feels can return to personal care; OT feels he may need rehab; will re-eval tomorrow prostate ca - resumed zytiga; on prednisone with the zytiga; received stress dose steroids - can cut these back today insomnia - could be steroid related; cautiously try low-dose xanax (0.25mg) at HS tonight anemia - stable; Fe studies, b12, folate in late 2016 were stable; likely due to prostate ca; follow hyponatremia - likely from volume depletion minimal acute kidney injury - BMP am possible d/c next 1-2 days pending PT/OT brunilda SANCHEZ MD (David Sanchez MD)
[2017-08-21] MEDS: CARVEDILOL 6.25 MG TAB PO SCH (20:53)
[2017-08-21] MEDS: TAMSULOSIN HCL 0.4 MG CAP PO SCH (20:54)
[2017-08-21] MEDS: CEPHALEXIN MONOHYDRATE 500 MG CAP PO SCH (21:00)
[2017-08-21] MEDS ORDERED: ALPRAZOLAM 0.25 MG TAB PO ONE (21:00)
[2017-08-22] VITALS: O2SAT 98
[2017-08-22] MEDS ORDERED: VANCOMYCIN TROUGH ONE (01:30)
[2017-08-22 06:54] LABS: BASO % 0.3 %; BASO ABS # 0.02 K/uL (0-0.2); EOS % 2.4 %; EOS ABS # 0.16 K/uL (0-0.5); HEMATOCRIT 28.6 % (42-52); HEMOGLOBIN 9.4 g/dL (14.0-18.0); IG# 0.04 K/uL (0.00-0.02); LYMPH % 25.5 %; LYMPH ABS # 1.67 K/uL (1.2-3.4); MEAN CELL VOLUME 94.1 fL (80-100); MEAN CORPUSCULAR HEMOGLOBIN 30.9 pg (25-34); MEAN CORPUSCULAR HGB CONC 32.9 g/dl (32-36); MEAN PLATELET VOLUME 9.6 fL (7.4-10.4); MONO % 10.2 %; MONO ABS # 0.67 K/uL (0.11-0.59); NEUT ABS # 3.98 K/uL (1.4-6.5); PLATELET COUNT 294 K/uL (130-400); RED CELL DISTRIBUTION WIDTH CV 14.8 % (11.5-14.5); RED CELL DISTRIBUTION WIDTH SD 50.5 fL (36.4-46.3); WHITE BLOOD COUNT 6.54 K/uL (4.8-10.8)
[2017-08-22 07:03] LABS: INR 2.1 (0.9-1.1)
[2017-08-22 07:20] LABS: CREATININE 1.3 mg/dl (0.60-1.40)
[2017-08-22 07:21] LABS: CALCIUM 8.4 mg/dl (8.5-10.1); POTASSIUM 3.8 mmol/L (3.5-5.1)
[2017-08-22 07:37] VITALS: BP 185/88; PULSE 57; TEMP 36.5; O2SAT 98
[2017-08-22] MEDS: MULTIVITAMIN TAB PO SCH (07:41)
[2017-08-22] MEDS: CEPHALEXIN MONOHYDRATE 500 MG CAP PO SCH (07:41)
[2017-08-22] MEDS: LACTOBACILLUS ACIDOPHILUS (FLORANEX) TAB PO SCH ×2 (07:41→12:54)
[2017-08-22] MEDS: FERROUS SULFATE 325 MG TAB PO SCH (07:41)
[2017-08-22] MEDS: CARVEDILOL 12.5 MG TAB PO SCH (07:42)
[2017-08-22] MEDS: CETIRIZINE HCL 10 MG TAB PO SCH (07:42)
[2017-08-22] MEDS: FINASTERIDE 5 MG TAB PO SCH (07:42)
[2017-08-22] MEDS: ASPIRIN 81 MG ECTAB PO SCH (07:42)
[2017-08-22] MEDS: DULOXETINE HCL 20 MG CAP PO SCH (07:42)
[2017-08-22] MEDS: CHOLECALCIFEROL 1000 INTER.UNIT TAB PO SCH (07:42)
[2017-08-22 08:30] VITALS: O2SAT 98
[2017-08-22] MEDS: FENOFIBRATE 145 MG TAB PO SCH (09:35)
[2017-08-22] MEDS ORDERED: KFL500 PO ×2 (11:55→15:22)
[2017-08-22] MEDS ORDERED: SACC250C3 PO ×2 (11:56→15:22)
--- NOTE | 2017-08-22 11:59 | Discharge Instructions ---
Discharge Instructions Date of Service Aug 22, 2017. Admission Reason for Admission: Altered Mental Status,Uti Discharge Discharge Diagnosis / Problem: Metabolic Encephalopathy due to UTI Discharge Goals Goal(s): Decrease discomfort, Improve function, Increase independence Activity Recommendations Activity Level: Assistance Required Therapies: Physical Therapy, Occupational Therapy . Additional Information Patient informed of condition: Yes Advance Directives: Yes DNR: No Level of Care: Other (Assisted Living) Communicable Disease: No Prognosis: Improving Instructions / Follow-Up Instructions / Follow-Up This is an 81 yo M w PMHx of chronic systolic CHF s/p 1 cardiac stent, HTN, HLD , CAD, COPD on chronic prednisone not on supplemental O2, prostate cx, CKD stage III, chronic anticoagulation for hx of DVT 10 years ago, depression and anxiety presenting with confusion and lethargy. Patient notes that he has experienced increased frequency for about the last week along with dysuria. He has been eating and drinking poorly and notes a decreased urine output., The patient denies any fevers chills or sweats. He was found to dirty UA and pending culture, this likely represents a UTI. Metabolic Encephalopathy 2/2 UTI and Dehydration: RESOLVED - Growing Citrobacter koseri that is pansensitive - placed on Keflex 500 mg BID - no evidence of prostatitis on BESSY -- Had morning dose of Keflex so will just need dose tonight on 08/22 then resume twice a day on 08/23 Chronic Systolic CHF and CAD S/P PCI and HTN/HLD: Appears Euvolemic - ASA 81 mg daily and Tricor 145 mg daily - Coreg 12.5 mg AM and 6.25 mg PM COPD without Exacerbation: Follows with Dr. Hopson H/O DVT on Chronic Coumadin: Supratherapeutic INR: - At 2.1 today - Son coordinated with Dr. Lim and is recommending holding Coumadin until his follow-up visit. - Patient reports DVT was 10 years ago and may be reasonable given falls. With the H/O Prostate CA he could be at increased with for clotting events and can monitor. Recommend F/U with Dr. Lim as scheduled to discuss H/O Prostate CA: STABLE - Proscar 5 mg daily and Flomax 0.4 mg daily - Continue Zytiga and Prednisone 2.5 mg BID Depression/Anxiety: STABLE - Cymbalta 20 mg daily Code Status: FULL RESUSCITATION Disposition: Resident of [place] - Recommend continued PT/OT at [facility] to improve functional ability - Recommend F/U with PCP in next 5-7 days and outpatient appointment with Dr. Lim to discuss anticoagulation Current Hospital Diet Patient's current hospital diet: AHA Diet (Heart Healthy) Discharge Diet Recommended Diet: AHA Diet (Heart Healthy) Pending Studies Studies pending at discharge: no Medical Emergencies . Who to Call and When: Medical Emergencies: If at any time you feel your situation is an emergency, please call 911 immediately. . Non-Emergent Contact Non-Emergency issues call your: Primary Care Provider Call Non-Emergent contact if: you have a fever, your pain is concerning you, you have any medication questions . . "Provider Documentation" section prepared by Mackenzei Hammonds. . Core Measure Problem Core Measures: None
[2017-08-22] MEDS: ZYTIGA 500 MG PO SCH (12:55)
[2017-08-22 13:25] VITALS: BP 185/88; PULSE 57; TEMP 36.5; O2SAT 98
[2017-08-22 14:20] VITALS: BP 121/73; PULSE 60; TEMP 36.3; O2SAT 96
--- NOTE | 2017-08-22 18:37 | Discharge Summary ---
Discharge Summary Date of Service Aug 22, 2017. Discharge Summary Admission Date: Aug 19, 2017 at 16:56 Discharge Date: Aug 22, 2017 Discharge Disposition: Personal care Principal Diagnosis: Urinary Tract Infection Problems/Secondary Diagnoses: Medical Problems: (1) Chronic anticoagulation (2) Chronic kidney disease (3) Chronic systolic CHF (congestive heart failure) (4) CKD (chronic kidney disease) stage 3, GFR 30-59 ml/min (5) Fatigue (6) H/O blood clots (7) Hip fracture (8) HLD (hyperlipidemia) (9) HTN (hypertension) (10) Hyponatremia (11) Prostate cancer Surgical Problems: (1) History of coronary artery stent placement Immunizations: Have You Had Influenza Vaccine: Yes History of Tetanus Vaccine?: Unknown History of Pneumococcal: Yes History of Hepatitis B Vaccine: Unknown Procedures: ABD/PELVIS WITHOUT FOR STONE FINDINGS: Lung bases are considered clear. Minimal dependent atelectasis. Slight fullness of the renal collecting systems and ureters bilaterally. Mild chronic infiltrative change of the perirenal fat bilaterally stable from the prior exam. Evaluation of the distal ureters difficult given metallic artifact from the patient's total left hip prosthetic. Etiology of the fullness of the ureters is not known. Nonobstructive bowel pattern. Mild chronic diverticulosis of the sigmoid. No evidence for mass collection or abscess. IMPRESSION: 1. Mild fullness of the renal collecting systems and ureters bilaterally of uncertain significance. 2. Dilation of the distal ureters problematic due to artifact from patient's total left hip prosthetic. 3. Chronic sigmoid diverticulosis. Consultations: 1. PT/OT Medication Reconciliation New Medications: Saccharomyces Boulardii (Florastor) 250 Mg Cap 1 TAB PO DAILY for 14 Days, #14 TABS Cephalexin Monohydrate (Cephalexin) 500 Mg Cap 500 MG PO BID, #13 CAP Continued Medications: Abiraterone Acetate (Zytiga) 500 Mg Tab 1000 MG PO DAILY Aspirin (Aspirin Ec) 81 Mg Tab 81 MG PO DAILY Carvedilol (Coreg) 12.5 Mg Tab 6.25 MG PO QPM, TAB Carvedilol (Coreg) 12.5 Mg Tab 12.5 MG PO QAM, TAB Cetirizine (Zyrtec) 10 Mg Tab 10 MG PO DAILY, TAB Cholecalciferol (Vitamin D3) 1,000 Inter.unit Tab 2000 INTER.UNIT PO QAM, #60 TAB 1 Refill Cyanocobalamin (Vitamin B12) 1,000 Mcg Tab 1000 MCG PO DAILY Dextromethorphan-Guaifenesin (Mucinex Dm) 1 Tab Tab 1 TAB PO Q12 PRN for CONGESTION Docusate Sodium (Colace) 100 Mg Cap 100 MG PO HS Duloxetine HCl (Cymbalta) 20 Mg Cap 20 MG PO DAILY, CAP Fenofibrate (Tricor) 145 Mg Tab 145 MG PO DAILY, TAB Ferrous Sulfate (Kp Ferrous Sulfate) 325 Mg Tab 325 MG PO BID Finasteride (Proscar) 5 Mg Tab 5 MG PO QAM, TAB Gentamicin Sulfate (Gentamicin Sulfate) 75 Drops/5 Ml Soln 2 SPRAYS NA TID Multiple Vitamin (Multivitamin) 1 Tab Tab 1 TAB PO DAILY, TAB Prednisone (Prednisone) 2.5 Mg Tab 2.5 MG PO BID Tamsulosin Hcl (Flomax) 0.4 Mg Cap 0.4 MG PO HS, CAP Discontinued Medications: Warfarin Sod (Jantoven) 2 Mg Tab 2 MG PO DAILY TAKES SAT AND Discharge Exam Review of Systems: Constitutional: No fever, No chills ENT: No nasal symptoms Respiratory: No cough, No shortness of breath Cardiovascular: No chest pain Abdomen: No pain, No nausea, No vomiting, No diarrhea, No constipation Musculoskeletal: No swelling, No calf pain Genitourinary - Male: No dysuria Hematologic / Lymphatic: No abnormal bleeding/bruising Physical Exam: General Appearance: WD/WN, no apparent distress Neck: supple, no JVD, trachea midline Respiratory/Chest: lungs clear, normal breath sounds, no respiratory distress, no accessory muscle use Cardiovascular: regular rate, rhythm, no gallop, no murmur Abdomen / GI: normal bowel sounds, non tender, soft Extremities: no pedal edema Neurologic/Psychiatric: alert, oriented x 3 Skin: normal color, warm/dry Hospital Course ADMISSION: This is an 81 yo M w PMHx of chronic systolic CHF s/p 1 cardiac stent , HTN, HLD, CAD, COPD on chronic prednisone not on supplemental O2, prostate cx , CKD stage III, chronic anticoagulation for hx of DVT 10 years ago presenting with confusion and lethargy. Patient notes that he has experienced increased frequency for about the last week along with dysuria. He has been eating and drinking poorly and notes a decreased urine output., The patient denies any fevers chills or sweats. He was found to dirty UA and pending culture, this likely represents a UTI. His son Leo, is present at bedside he mentions that the patient has sustained approximately 3 falls within the last month and is concerned with him being on chronic Coumadin the patient is currently a resident of [facility]. The patient does use a walker for ambulation at baseline. He lives with his who has severe dementia. Here in the ER UA was done showing large esterase, greater than 30 urine WBCs, 4 + bacteria. The patient was started on ceftriaxone IV. WBC is 9.65 without left shift. Afebrile, VSS HOSPITAL COURSE: Mr. Lan was admitted for Citrobacter koseri UTI. Patient presented with some metabolic encephalopathy that quickly resolved with treatment. He was hydrated and initially treated with Cefepime until culture/ sensitivities available. He is growing pansensitive Citrobacter koseri. He will complete this treatment with Keflex 500 mg BID to complete a total of 10 days. No tenderness or bogginess on BESSY to suggest prostatitis. Due to initially low BPs on admission he was treated with stress dose steroids and was tapered back to his baseline Prednisone 2.5 mg BID with his Zytiga. All home medications were continued as previously prescribed. Discussion with son, who states he is concerned about anticoagulation and coordinated with patient's salon manager. Recommending holding Coumadin until outpatient follow-up. Patient was supratherapeutic on admission and currently at 2.1. He is on AC due to H/O DVT x 10 years ago. This can be discussed further with his salon manager for ongoing treatment vs cessation. Given his H/O Prostate CA he would be at high risk for thrombolytic events and this can be monitored. Patient will return to [facility] with PT/OT services. Total Time Spent: Greater than 30 minutes This includes examination of the patient, discharge planning, medication reconciliation, and communication with other providers. Discharge Instructions Please refer to the electronic Patient Visit Report (Discharge Instructions) for additional information. Additional Copies To [facility]
== END 2017-08-22 16:58 | disposition home or self-care (01) | DRG 689 ==
LOC: C.EDB 12:27 → C.4E 16:56 → ENRESERV 17:50
PROVIDERS: ADMIT Internal Medicine; ATTEND Internal Medicine
DX: N39.0 Urinary tract infection, site not specified (principal); G93.41 Metabolic encephalopathy; E87.1 Hypo-osmolality and hyponatremia; N17.9 Acute kidney failure, unspecified; I13.0 Hypertensive heart and chronic kidney disease with heart failure and stage 1 through stage 4 chronic kidney disease, or unspecified chronic kidney disease; I50.22 Chronic systolic (congestive) heart failure; B96.89 Other specified bacterial agents as the cause of diseases classified elsewhere; R79.1 Abnormal coagulation profile; E86.0 Dehydration; D63.0 Anemia in neoplastic disease; G47.00 Insomnia, unspecified; C61 Malignant neoplasm of prostate; N18.3 Chronic kidney disease, stage 3 (moderate); J44.9 Chronic obstructive pulmonary disease, unspecified; I25.10 Atherosclerotic heart disease of native coronary artery without angina pectoris; E78.5 Hyperlipidemia, unspecified; F32.9 Major depressive disorder, single episode, unspecified; F41.9 Anxiety disorder, unspecified; Z79.899 Other long term (current) drug therapy; Z79.01 Long term (current) use of anticoagulants; Z79.52 Long term (current) use of systemic steroids; Z79.82 Long term (current) use of aspirin; Z86.718 Personal history of other venous thrombosis and embolism; Z91.81 History of falling; Z95.5 Presence of coronary angioplasty implant and graft; Z86.73 Personal history of transient ischemic attack (TIA), and cerebral infarction without residual deficits; Z87.891 Personal history of nicotine dependence

== ENCOUNTER → 2017-12-10 | Outpatient (CLI) | payer OTHER, MEDICARE ==
[~2017-12-10] MED LIST changes: +ABIR500T PO; +ATRINS NEB; -CARV12.52 PO; +CARV6.252 PO; +CETI10TA62 PO; -CETI10TA84 PO; +CHOL200010 PO; +CYAN100048 SL; +DEXT30TA7 PO; +DOCU100C22 PO; +FERR325T5 PO; +GNTNASAL NAE; +IMD/2 PO; +MULT-411 PO; -MULTTAB58 PO; +NTRGSL/4 UT; +PRED-301 PO; +SYMIN160 INH; -VTMD1000 PO; -WARF1TAB6 PO; -WARF2TAB8 PO; +[UNRECOGNIZED DRUG - CODE] TOP
[2017-12-10 10:07] LABS: BLOOD UREA NITROGEN 38 mg/dl (7-18); CALCIUM 8.6 mg/dl (8.5-10.1); CARBON DIOXIDE 26 mmol/L (21-32); CREATININE 1.41 mg/dl (0.60-1.40); GLUCOSE 85 mg/dl (70-99); POTASSIUM 4.4 mmol/L (3.5-5.1); SODIUM 136 mmol/L (136-145)
== END | disposition home or self-care (01) ==
LOC: C.LABOUTLO 08:39
PROVIDERS: ATTEND Urology
DX: N13.30 Unspecified hydronephrosis (principal); C61 Malignant neoplasm of prostate

== ENCOUNTER 2019-11-19 11:28 | Inpatient (IN) ==
--- NOTE | 2019-11-19 12:28 | Emergency Department Note ---
Impression & Plan Weakness, Adult failure to thrive, Hyponatremia, Anemia ED Provider Note NAME: SANTIAGO OLIVAS AGE: 83 SEX: M : 1935 ARRIVES VIA: Walk-In INFORMANT: Patient ED PROVIDER(S): Dougie Vázquez DO CHIEF COMPLAINT: Weak HPI: Patient is an 83-year-old male who presents the ER for weakness. Patient notes that this is been going on for the past 3 weeks to a month. He is not eating or drinking. He notes nothing tastes good. He notes that he is extremely weak with doing any kind of movement. Son notes that he lives at [facility]. He is an extremely high fall risk. Does not believe that he can go back there. Patient cannot dress himself. He has been using a walker but barely getting around. He denies any belly pain, nausea vomiting or diarrhea. No dysuria urgency or frequency. No other complaints at this time. ROS: See above HPI for pertinent positives & negatives. A total of 10 systems re viewed and were otherwise negative. PAST MEDICAL HISTORY:See Below PAST SURGICAL HISTORY:See Below FAMILY HISTORY:See Below SOCIAL HISTORY:See Below HOME MEDICATIONS:See Below ALLERGIES:See Below VITALS:See Below PHYSICAL EXAMINATION: GENERAL: Sitting up in bed, alert, chronically ill-appearing, disheveled, nontoxic EYE EXAM: normal conjunctiva. OROPHARYNX: no exudate, no erythema, lips, buccal mucosa, and tongue normal and mucous membranes are moist NECK: supple, no nuchal rigidity, no adenopathy, non-tender LUNGS: Clear to auscultation. Normal chest wall mechanics HEART: no murmurs, S1 normal and S2 normal ABDOMEN: abdomen soft, non-tender, normo-active bowel sounds, no masses, no rebound or guarding. BACK: Back is symmetrical on inspection and there is no deformity, no midline tenderness, no CVA tenderness. SKIN: no rashes and no bruising UPPER EXTREMITIES: upper extremities are grossly normal. LOWER EXTREMITIES: No pitting edema. NEURO EXAM: Normal sensorium, cranial nerves II-XII grossly intact, normal speech, no gross weakness of arms, no gross weakness of legs. MEDICAL DECISION MAKING: Patient is an 83-year-old male that presents the ER for weakness. He notes he h as not been eating or drinking much for over a month now. He is lost over 30 pounds over this time period. He is very weak and frail the son notes. IV was established blood work was obtained. He was referred in by PCP. Labs show no significant leukocytosis. Mild anemia at 10.6 thousand. INR was unremarkable. BMP with creatinine 1.6 and a mild hyponatremia. LFTs bilirubin and troponin were negative. TSH unremarkable. Chest x-ray was unremarkable. Patient was updated bedside. Son does want him placed in a retirement. Discussed with hospice patient care secretary. Will need a 2 night stay. Discussed with hospitalist for admission. Triage Nursing notes reviewed. Prior medical records reviewed Vital Signs: reviewed and remarkable for retention Differential diagnosis: Infection, dehydration, metabolic abnormality, hypo/hyperglycemia, electrolyte disturbance, anemia, hypoxia, cardiac sources, intracerebral event, toxicologic, neurologic, as well as other pathologies. ER treatment provided: See below Diagnostics interpreted by me: ECG: none Cardiac Monitoring: An order was placed for continuous cardiac monitoring. The monitor shows a rate of 62 with sinus rhythm. Laboratory studies: As stated above and show below. Imaging studies: Portable AP upright 1 view of the chest was unremarkable. Consultation(s): Discussed with Dr. David Mann for admission ED COURSE: Procedures: none PDMP:reviewed and no issues Critical Care: None Past Med/Surg History Medical History (Updated 11/19/19 @ 18:43 by Dougie Vázquez DO) Acute UTI (Inactive) Anemia (Inactive) Chronic systolic CHF (congestive heart failure) CKD (chronic kidney disease) stage 3, GFR 30-59 ml/min CKD (chronic kidney disease), stage III (Acute) Generalized weakness (Inactive) H/O blood clots (Chronic) Hip fracture (Resolved) HLD (hyperlipidemia) (Acute) HTN (hypertension) (Acute) Hydronephrosis (Acute) Hydroureter, left (Acute) Hyponatremia (Acute) Prostate cancer (Chronic) Urinary retention (Acute) Urinary retention (Acute) Surgical History History of coronary artery stent placement (Chronic) History of coronary artery stent placement (Acute) History of left hip replacement (Acute) S/P knee replacement Status post cardiac surgery Social History Preferred Language: Bhutanese Communication Ability: Effective Visual Impairment: No Limitations Hearing Ability: Normal 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 Required: No Beliefs That Will Affect Care: None marital status: Current Living Situation: Personal Care Facility Current Living Situation Comment: [facility] current occupational status: retired Other Information That Helps Us Care for You: No Feels Safe at Home: Yes Safety Concerns: Feels Safe At This Time Smoking Status: Never smoker Cigarettes Per Day: 20 ; Hx Alcohol Use: Yes Hx Substance Use: No Childhood Exposure to Second-Hand Smoke: No Dental Care, Regularly: Yes Physical Activity Frequency: Does not Exercise Seatbelt Use: always Sunscreen Use: No Allergies Allergies Allergy/AdvReac Type Severity Reaction Status Date / Time No Known Allergies Allergy Verified 11/19/19 12:06 Home Meds Home Medications Medication Instructions Recorded Confirmed Zytiga 1,000 mg PO QAM #0 08/19/17 11/19/19 cholecalciferol (vitamin D3) 2,000 unit PO QAM #0 12/03/17 11/19/19 cyanocobalamin (vitamin B-12) 1,000 mcg SUBLINGUAL HS #0 12/03/17 11/19/19 ferrous sulfate 325 mg PO BID #0 12/03/17 11/19/19 multivitamin [Daily-Thalia] 1 tab PO QAM #0 12/03/17 11/19/19 nitroglycerin [Nitrostat] 0.4 mg SUBLINGUAL DIRECTED PRN 12/03/17 11/19/19 #0 btl acetaminophen [Tylenol Extra 500 mg PO Q8 PRN MDD 3 GRAMS/24 01/07/19 11/19/19 Strength] HOURS. calcium carbonate [Tums] 200 mg PO DIRECTED PRN 01/07/19 11/19/19 cetirizine [Zyrtec] 10 mg PO HS 01/07/19 11/19/19 prednisone 2.5 mg PO BIDM 01/07/19 11/19/19 sertraline 50 mg PO QAM 01/07/19 11/19/19 buspirone 5 mg tablet 5 mg PO TID 06/12/19 11/19/19 psyllium husk (aspartame) 3.4 gram 1 packet PO QAM 11/06/19 11/19/19 oral powder packet Gentamicin 2 spray DANNIELLE TID 11/19/19 11/19/19 Previous Rx's Medication Instructions Recorded ciclopirox 0.77 % topical gel 1 applic TOPICAL BID PRN #45 gm 01/20/19 fluticasone fur. 100 mcg-umeclid 1 inh INHALATION HS #28 ea 03/05/19 62.5 mcg-vilant 25 mcg inhalat.powder dextromethorphan-guaifenesin 30 1 tab PO Q12H #60 tab 11/06/19 mg-600 mg tablet extended hr food supplemt, lactose-reduced 1 ea PO BID #237 ml 11/06/19 ipratropium 0.5 mg-albuterol 3 mg 3 ml INH BID #180 ml 11/06/19 (2.5 mg base)/3 mL nebulization soln ketotifen fumarate 0.025 % (0.035 1 drops OP BID #5 ml 11/06/19 %) eye drops lidocaine 4 % topical patch 1 patch TOP DAILY PRN #10 ea 11/06/19 neomycin 3.5 mg-bacitracn Zn 400 See Rx Instructions TOP .COMPLEX 11/06/19 unit-polymyxin 5,000 unit/g top #56 gm spray Results & Data (ED) Vital Signs Vital Signs - 24 hr 11/19/19 11:36 11/19/19 11:51 11/19/19 11:54 Temperature 36.5 C Temperature Source Oral Pulse Rate 63 59 L 59 L Pulse Rate from SpO2 Sensor 59 L 56 L Respiratory Rate 20 22 19 Respiratory Effort / Characteristics Non-Labored Spontaneous Respiratory Depth Normal Respiratory Pattern Regular Blood Pressure 122/76 146/81 H Blood Pressure Mean 91 107 Pulse Oximetry 98 98 97 Oxygen Delivery Method Room Air Sepsis Recent Fever Within 48 Hours No Sepsis Action Taken by Nursing No Action Required 11/19/19 12:00 11/19/19 12:01 11/19/19 12:30 Temperature Temperature Source Pulse Rate 60 60 57 L Pulse Rate from SpO2 Sensor 57 L 60 58 L Respiratory Rate 20 16 18 Respiratory Effort / Characteristics Respiratory Depth Respiratory Pattern Blood Pressure 134/73 Blood Pressure Mean 95 Pulse Oximetry 98 97 98 Oxygen Delivery Method Sepsis Recent Fever Within 48 Hours Sepsis Action Taken by Nursing 11/19/19 12:31 11/19/19 12:35 11/19/19 12:37 Temperature Temperature Source Pulse Rate 59 L 62 58 L Pulse Rate from SpO2 Sensor 59 L 61 Respiratory Rate 20 18 22 Respiratory Effort / Characteristics Respiratory Depth Respiratory Pattern Blood Pressure 135/93 Blood Pressure Mean 100 118 Pulse Oximetry 98 99 95 Oxygen Delivery Method Room Air Sepsis Recent Fever Within 48 Hours Sepsis Action Taken by Nursing 11/19/19 13:00 11/19/19 13:01 11/19/19 13:30 Temperature Temperature Source Pulse Rate 58 L 57 L 63 Pulse Rate from SpO2 Sensor 57 L 57 L 65 Respiratory Rate 21 23 19 Respiratory Effort / Characteristics Respiratory Depth Respiratory Pattern Blood Pressure 149/68 H 115/63 Blood Pressure Mean 105 89 Pulse Oximetry 97 96 96 Oxygen Delivery Method Sepsis Recent Fever Within 48 Hours Sepsis Action Taken by Nursing 11/19/19 13:31 11/19/19 14:00 11/19/19 14:30 Temperature Temperature Source Pulse Rate 67 64 65 Pulse Rate from SpO2 Sensor 65 66 65 Respiratory Rate 17 21 20 Respiratory Effort / Characteristics Respiratory Depth Respiratory Pattern Blood Pressure 131/67 124/66 Blood Pressure Mean 101 96 Pulse Oximetry 96 98 97 Oxygen Delivery Method Sepsis Recent Fever Within 48 Hours Sepsis Action Taken by Nursing 11/19/19 14:31 Temperature Temperature Source Pulse Rate 65 Pulse Rate from SpO2 Sensor 65 Respiratory Rate 22 Respiratory Effort / Characteristics Respiratory Depth Respiratory Pattern Blood Pressure Blood Pressure Mean Pulse Oximetry 96 Oxygen Delivery Method Sepsis Recent Fever Within 48 Hours Sepsis Action Taken by Nursing Laboratory Data Result diagrams: 11/19/19 12:38 11/19/19 12:38 Lab Results 11/19/19 11/19/19 11/19/19 Range/Units 12:38 12:38 12:38 WBC 10.02 (4.8-10.8) K/uL RBC 3.45 L (4.7-6.1) M/uL Hgb 10.6 L (14.0-18.0) g/dL Hct 32.4 L (42-52) % MCV 93.9 (80-100) fL MCH 30.7 (25-34) pg MCHC 32.7 (32-36) g/dL RDW Std Deviation 51.1 H (36.4-46.3) fL RDW Coeff of Guillermo 15.0 H (11.5-14.5) % Plt Count 303 (130-400) K/uL MPV 10.6 H (7.4-10.4) fL Immature Gran % (Auto) 0.4 % Neut % (Auto) 69.5 % Lymph % (Auto) 20.6 % [place] % (Auto) 7.9 % Eos % (Auto) 1.2 % Baso % (Auto) 0.4 % Immature Gran # (Auto) 0.04 H (0.00-0.02) K/uL Neut # (Auto) 6.97 H (1.4-6.5) K/uL Lymph # (Auto) 2.06 (1.2-3.4) K/uL [place] # (Auto) 0.79 H (0.11-0.59) K/uL Eos # (Auto) 0.12 (0-0.5) K/uL Baso # (Auto) 0.04 (0-0.2) K/uL PT 11.9 (9.0-12.0) Seconds INR 1.1 (0.9-1.1) Sodium 134 L (136-145) mmol/L Potassium 4.1 (3.5-5.1) mmol/L Chloride 103 (98-107) mmol/L Carbon Dioxide 20 L (21-32) mmol/L Anion Gap 10.0 (3-11) BUN 57 H (7-18) mg/dl Creatinine 1.60 H (0.6-1.4) mg/dl Est Cr Clr Drug Dosing 30.5 ml/min Est GFR ( Amer) 44.9 Est GFR (Non-Af Amer) 38.7 BUN/Creatinine Ratio 35.4 H (10-20) Glucose 106 H (70-99) mg/dl Calcium 8.7 (8.5-10.1) mg/dl Magnesium 1.9 (1.8-2.4) mg/dl Total Bilirubin 0.6 (0.2-1) mg/dl AST 49 H (15-37) U/L ALT 30 (12-78) U/L Alkaline Phosphatase 97 (45-117) U/L Troponin I < 0.015 (0-0.045) ng/ml Total Protein 6.8 (6.4-8.2) gm/dl Albumin 2.9 L (3.4-5.0) gm/dl Globulin 3.9 (2.5-4.0) gm/dl Albumin/Globulin Ratio 0.7 L (0.9-2) Prostate Specific Ag (0-4) ng/ml TSH 2.240 (0.300-4.500) uIu/ml 11/19/19 Range/Units 12:38 WBC (4.8-10.8) K/uL RBC (4.7-6.1) M/uL Hgb (14.0-18.0) g/dL Hct (42-52) % MCV (80-100) fL MCH (25-34) pg MCHC (32-36) g/dL RDW Std Deviation (36.4-46.3) fL RDW Coeff of Guillermo (11.5-14.5) % Plt Count (130-400) K/uL MPV (7.4-10.4) fL Immature Gran % (Auto) % Neut % (Auto) % Lymph % (Auto) % [place] % (Auto) % Eos % (Auto) % Baso % (Auto) % Immature Gran # (Auto) (0.00-0.02) K/uL Neut # (Auto) (1.4-6.5) K/uL Lymph # (Auto) (1.2-3.4) K/uL [place] # (Auto) (0.11-0.59) K/uL Eos # (Auto) (0-0.5) K/uL Baso # (Auto) (0-0.2) K/uL PT (9.0-12.0) Seconds INR (0.9-1.1) Sodium (136-145) mmol/L Potassium (3.5-5.1) mmol/L Chloride (98-107) mmol/L Carbon Dioxide (21-32) mmol/L Anion Gap (3-11) BUN (7-18) mg/dl Creatinine (0.6-1.4) mg/dl Est Cr Clr Drug Dosing ml/min Est GFR ( Amer) Est GFR (Non-Af Amer) BUN/Creatinine Ratio (10-20) Glucose (70-99) mg/dl Calcium (8.5-10.1) mg/dl Magnesium (1.8-2.4) mg/dl Total Bilirubin (0.2-1) mg/dl AST (15-37) U/L ALT (12-78) U/L Alkaline Phosphatase (45-117) U/L Troponin I (0-0.045) ng/ml Total Protein (6.4-8.2) gm/dl Albumin (3.4-5.0) gm/dl Globulin (2.5-4.0) gm/dl Albumin/Globulin Ratio (0.9-2) Prostate Specific Ag 31.500 H (0-4) ng/ml TSH (0.300-4.500) uIu/ml Administered Medications Lactated Ringer's (Lr) 1,000 mls @ 100 mls/hr IV .Q10H HERO Stop: 12/19/19 15:44 Last Admin: 11/19/19 16:54 Dose: 100 mls/hr Documented by: [id number] Prednisone (Prednisone) 2.5 mg PO BIDM HERO Stop: 12/19/19 16:59 Last Admin: 11/19/19 17:25 Dose: 2.5 mg Documented by: [id number] Discontinued Medications Sodium Chloride (Nss) 500 mls @ 999 mls/hr IV .Q31M HERO Stop: 11/19/19 13:00 Last Infusion: 11/19/19 13:22 Dose: 0 mls/hr Documented by: [id number] Admin: 11/19/19 12:49 Dose: 999 mls/hr Documented by: [id number] Discharge Plan Visit Data *Final* Discharge Date/Time: 11/19/19 16:11 Chief Complaint: Illness Stated Complaint: ILLNESS ED Provider: Dougie Vázquez Discharge Problem: Weakness, Adult failure to thrive, Hyponatremia, Anemia Patient Disposition: Admitted As Inpatient Discharge Instructions Interventions: ED Discharge Assessment Last Done: 11/19/19 16:11 Discharge Problem: Anemia Qualifiers: Anemia type: unspecified type Qualified Code(s): D64.9 - Anemia, unspecified
[2019-11-19] MEDS ORDERED: SODIUM CHLORIDE 0.9% 500 ML IV SCH (12:30)
[2019-11-19 12:51] LABS: Basophils # (auto) 0.04 K/uL (0-0.2); Basophils % (auto) 0.4 %; Eosinophils # (auto) 0.12 K/uL (0-0.5); Eosinophils % (auto) 1.2 %; Hematocrit (blood only) 32.4 % (42-52); Hemoglobin 10.6 g/dL (14.0-18.0); Immature Granulocytes # (auto) 0.04 K/uL (0.00-0.02); Immature Granulocytes % (auto) 0.4 %; Lymphocytes # (auto) 2.06 K/uL (1.2-3.4); Lymphocytes % (auto) 20.6 %; Mean Corpuscular Hemoglobin 30.7 pg (25-34); Mean Corpuscular Hgb Conc 32.7 g/dL (32-36); Mean Corpuscular Volume 93.9 fL (80-100); Mean Platelet Volume 10.6 fL (7.4-10.4); Monocytes # (auto) 0.79 K/uL (0.11-0.59); Monocytes % (auto) 7.9 %; Neutrophils # (auto) 6.97 K/uL (1.4-6.5); Neutrophils % (auto) 69.5 %; Platelet Count 303 K/uL (130-400); RDW Standard Deviation 51.1 fL (36.4-46.3); Red Blood Count 3.45 M/uL (4.7-6.1); White Blood Count 10.02 K/uL (4.8-10.8)
[2019-11-19 13:00] LABS: INR 1.1 (0.9-1.1); Prothrombin Time 11.9 Seconds (9.0-12.0)
[2019-11-19 13:07] LABS: Alanine Aminotransferase 30 U/L (12-78); Albumin Level 2.9 gm/dl (3.4-5.0); Aspartate Aminotransferase 49 U/L (15-37); BUN Creatinine Ratio 35.4 (10-20); Blood Urea Nitrogen 57 mg/dl (7-18); Calcium 8.7 mg/dl (8.5-10.1); Carbon Dioxide 20 mmol/L (21-32); Chloride 103 mmol/L (98-107); Creatinine Clr Calc Pharmacy 30.5 ml/min; Est GFR (African American) 44.9; Est GFR (Non-African American) 38.7; Glucose 106 mg/dl (70-99); Magnesium 1.9 mg/dl (1.8-2.4); Potassium 4.1 mmol/L (3.5-5.1); Sodium 134 mmol/L (136-145)
--- NOTE | 2019-11-19 13:17 | XRay Report ---
XR chest 1V portable CLINICAL HISTORY: weakness COMPARISON STUDY: Chest radiograph August 20, 2019. FINDINGS: No pneumothorax or pleural effusion is noted. Calcified right lung nodules are noted. There is no consolidation or evidence for pulmonary edema. Cardiac size is normal. Mediastinal contours ar e stable. The appearance of the chest is unchanged. IMPRESSION: No acute cardiopulmonary findings. ACT 112: Negative or not required by law. Electronically signed by: Deuce Ro M.D. 11/19/2019 1:16 PM
[2019-11-19 13:18] LABS: Albumin Globulin Ratio 0.7 (0.9-2); Alkaline Phosphatase 97 U/L (45-117); Bilirubin,Total 0.6 mg/dl (0.2-1); Globulin 3.9 gm/dl (2.5-4.0); Total Protein 6.8 gm/dl (6.4-8.2); Troponin I < 0.015 ng/ml (0-0.045)
--- NOTE | 2019-11-19 14:50 | History & Physical Report ---
Date of Service November 19, 2019 Assessment & Plan (1) Adult failure to thrive: Unclear if just general progression of chronic disease including his malignant prostate cancer with loss of appetite vs. more acute reversible pathology which appears to be less likely. Given rapid progression from March and especially the last month, after extensively discussing more palliative vs. investigative approach with the patient and his son will workup his symptoms as below: CT C/A/P with IV + oral contrast due to concern for malignancy with such a degree of weight loss Known medical issues: Malignant prostate ca. - see below, repeat PSA Left Hydronephrosis and urinary retention - see below CAD with CHF - see below Depression - taking sertraline; consider switching to mirtazapine for appetite stimulation, depression does not appear to be driving force of appetite loss however Prior "fatigue", "ambulatory/sensory dysfunction" labs: Total CK - 72 [01/2019], repeat in AM TSH WNL B12 normal 2016, repeat with AM labs Thiamine level in AM, start on supplementation for this (although notably no encephalopathy or ophthalmoplegia on exam Iatrogenic: Zytiga - most likely medication causing his constellation of symptoms, HIM request as below but recommend discussing discontinuing this with Dr Patiño; unclear if use matches his timeline of decline. Steroid inhalers (pt feels may be contributing to loss of taste) - ?candidal esophagitis, no oral esophagitis on exam and no pain noted by patient. Nevertheless will d/c the steroid part of his inhaler as PFTs previously actually looked good. (2) Loss of appetite: This appears to be the predominating symptom, therefore causing his weight loss (3) Oropharyngeal dysphagia: Speech and language consult as patient reporting occasional food getting stuck in throat (4) Physical deconditioning: PT/OT evals as potentially will need placement (5) Weight loss: 91kg to 65 kg since August 2018 Unclear etiology of this ?just from loss of appetite vs. malignancy (either progression of his prostate or new) CT C/A/P as above Boost and peanut picker consult (6) Urinary retention: History of this suspect secondary to prostate ca. +/- radiation therapy Tamsulosin or finasteride on hold for hypotension as per med list but unclear when this was stopped. Given risk of recurrence of this and history of UTIs will restart both UA pending Bladder scan Qshift - call physician if > 500ml (7) Hydronephrosis, left: Reassess with CT as above (8) Prostate cancer: PSA appears relatively stable since 07/2018 therefore difficult to blame this since it has not progressed Repeat PSA given progression of symptoms over last month HIM request for last O/P Dr Kaylyn barrera ([facility] oncology) (9) CAD (coronary artery disease): ASA 81mg PO daily Carvedilol on hold due to bradycardia and hypotension Not on statin and inappropriate to start given current circumstances Minimal EKG changes since previous, troponins negative on multiple ER visits including today Given current SOBOE will get TTE as below (10) Chronic systolic CHF (congestive heart failure): Current euvolemic on exam Lasix on hold as per med list although unclear when this was held, not hypervolemic on exam, request O/P note and last echo from Dr Lim, current EKG unremarkable BB on hold due to bradycardia [facility] requested T[facility] to assess cardiomyopathy, if progressed (11) CKD (chronic kidney disease) stage 3, GFR 30-59 ml/min: At baseline Vit D level in AM (12) DVT prophylaxis: Heparin 5000 units SQ BID Admission and Anticipated Discharge Date Admission Date: 11/19/2019 History of Present Illness Chief Complaint: Generalized deconditioning Primary Care Provider: Bhumi Hoskins MD Yaya Lan is an 83 year old male with known malignant prostate cancer who presents to the ER at the advice of his PCP for progressive fatigue, low appetite, diarrhea. Difficult to get history from the patient and his son to what symptoms are chronic and what is more acute. Appears to be a slow progressive decline over time many months involving multiple falls, UTIs, loss of appetite, alternating diarrhea and constipation but with a sudden worsening over the last 4 weeks to the point he is no longer able to walk to the bathroom without assistance. He is unable to relate this decline to any changes of his medication. Known prostate cancer malignancy since the treated with radiation (presumed external), currently on lupron and Zytiga but unknown duration of these medications. He notes occasional incontinence at night but not change in this for many months. He has chronic bronchitis for which he takes Trilegy Elipta under Dr Hopson - this is no worse than usual. No shortness of breath, chest pain, dysuria, fever, chills. Summary of prior notes in EHR: 02/2017 hospitalization for fatigue, nausea and vomiting, hyponatremia and increased Cr - felt possibly fatigue secondary to dehydration with low appetite ?due to ketoconazole. He was not recorded to be on Zytiga at that time. He was taking tamsulosin and finasteride. 08/2017 hospitalization for falls, confusion and lethargy. Diagnosed with Citrobacter koseri UTI. CT A/P at that time showing mild fullness of the renal collecting systems and ureters b/l of uncertain significance. Pt on cymbalta at that time. Taking warfarin for history of remote DVT 2006. Zytiga noted on home med list ?started at this time. 08/2028 Underwent bronchoscopy due to chronic congestion. 12/2018 Treated for UTI in ER Multiple notes regarding falls after this Followed up at his clinic appointment today advised to hold his BP medications (unclear if handwriting on his med list is from his PCP or [facility]) Allergies Allergy/AdvReac Type Severity Reaction Status Date / Time No Known Allergies Allergy Verified 11/19/19 12:06 Home Medications Home Medications Medication Instructions Recorded Confirmed Type Zytiga 1,000 mg PO QAM #0 08/19/17 11/19/19 History cholecalciferol (vitamin D3) 2,000 unit PO QAM #0 12/03/17 11/19/19 History cyanocobalamin (vitamin B-12) 1,000 mcg SUBLINGUAL HS #0 12/03/17 11/19/19 History ferrous sulfate 325 mg PO BID #0 12/03/17 11/19/19 History multivitamin [Daily-Thalia] 1 tab PO QAM #0 12/03/17 11/19/19 History nitroglycerin [Nitrostat] 0.4 mg SUBLINGUAL DIRECTED PRN 12/03/17 11/19/19 History #0 btl acetaminophen [Tylenol Extra 500 mg PO Q8 PRN MDD 3 GRAMS/24 01/07/19 11/19/19 History Strength] HOURS. calcium carbonate [Tums] 200 mg PO DIRECTED PRN 01/07/19 11/19/19 History cetirizine [Zyrtec] 10 mg PO HS 01/07/19 11/19/19 History prednisone 2.5 mg PO BIDM 01/07/19 11/19/19 History sertraline 50 mg PO QAM 01/07/19 11/19/19 History ciclopirox 0.77 % topical gel 1 applic TOPICAL BID PRN #45 gm 01/20/19 11/19/19 Rx fluticasone fur. 100 mcg-umeclid 1 inh INHALATION HS #28 ea 03/05/19 11/19/19 Rx 62.5 mcg-vilant 25 mcg inhalat.powder buspirone 5 mg tablet 5 mg PO TID 06/12/19 11/19/19 History dextromethorphan-guaifenesin 30 1 tab PO Q12H #60 tab 11/06/19 11/19/19 Rx mg-600 mg tablet extended cerlbbi43 hr food supplemt, lactose-reduced 1 ea PO BID #237 ml 11/06/19 11/19/19 Rx ipratropium 0.5 mg-albuterol 3 mg 3 ml INH BID #180 ml 11/06/19 11/19/19 Rx (2.5 mg base)/3 mL nebulization soln ketotifen fumarate 0.025 % (0.035 1 drops OP BID #5 ml 11/06/19 11/19/19 Rx %) eye drops lidocaine 4 % topical patch 1 patch TOP DAILY PRN #10 ea 11/06/19 11/19/19 Rx neomycin 3.5 mg-bacitracn Zn 400 See Rx Instructions TOP .COMPLEX 11/06/19 11/19/19 Rx unit-polymyxin 5,000 unit/g top #56 gm spray psyllium husk (aspartame) 3.4 gram 1 packet PO QAM 11/06/19 11/19/19 History oral powder packet Gentamicin 2 spray DANNIELLE TID 11/19/19 11/19/19 History Past Med/Surg History Medical History (Updated 11/19/19 @ 23:49 by David Mann MD) Acute UTI (Inactive) Anemia (Inactive) Chronic systolic CHF (congestive heart failure) CKD (chronic kidney disease) stage 3, GFR 30-59 ml/min CKD (chronic kidney disease), stage III (Acute) Generalized weakness (Inactive) H/O blood clots (Chronic) Hip fracture (Resolved) HLD (hyperlipidemia) (Acute) HTN (hypertension) (Acute) Hydronephrosis (Acute) Hydroureter, left (Acute) Hyponatremia (Acute) Prostate cancer (Chronic) Urinary retention (Acute) Surgical History History of coronary artery stent placement (Chronic) History of coronary artery stent placement (Acute) History of left hip replacement (Acute) S/P knee replacement Status post cardiac surgery Social History Preferred Language: Kyrgyz Communication Ability: Effective Visual Impairment: No Limitations Hearing Ability: Normal Supervisor Fishing Required: No Beliefs That Will Affect Care: None marital status: Current Living Situation: Personal Care Facility Current Living Situation Comment: [facility] current occupational status: retired Other Information That Helps Us Care for You: No Feels Safe at Home: Yes Safety Concerns: Feels Safe At This Time Smoking Status: Never smoker Cigarettes Per Day: 20 ; Hx Alcohol Use: Yes Hx Substance Use: No Childhood Exposure to Second-Hand Smoke: No Dental Care, Regularly: Yes Physical Activity Frequency: Does not Exercise Seatbelt Use: always Sunscreen Use: No Review of Systems Review of Systems: All systems reviewed & are unremarkable except as noted in HPI & below Constitutional: + fatigue, + weakness, + anorexia, + weight loss and + daytime sleepiness; no fever, no chills and no body aches Eyes: no problem reported Ear, Nose, Mouth, Throat: + dysphagia (occasional pills getting stuck in throat, no pain); no dry mouth, no dental pain, no sore throat, no change in voice and no hoarseness Respiratory: + cough (chronic, no worse than usual) and + dyspnea on exertion (more general fatigue but also SOB); no pain on inspiration and no wheezing Cardiovascular: + dyspnea on exertion and + lightheadedness (very occasionally); no chest pain, no dyspnea at rest, no paroxysmal nocturnal dyspnea, no palpitations, no syncope, no edema and no claudication Gastrointestinal: + belching (occasional), + heartburn (occasional), + dysphagia (as above) and + change in bowel habits (frequently switch from diarrhea to constipation); no abdominal pain, no nausea, no vomiting, no coffee ground emesis, no excessive flatulence, no blood in stools and no melena Genitourinary: no dysuria Musculoskeletal: + muscle weakness and + muscle atrophy; no back pain, no neck pain, no radicular pain, no joint pain, no myalgia and no body aches Integumentary: no problem reported Neurologic: + unsteadiness, + generalized weakness and + lack of coordination; no localized weakness, no loss of sensation, no numbness, no paresthesia, no tremor(s), no restless legs and no syncope Psychiatric: no depression and no anxiety Physical Exam Constitutional: well developed and + frail appearing; + not well nourished and no acute distress Eyes: + anicteric sclerae, PERRL and EOM intact bilaterally; normal pupil size ENMT: external ear and nose normal, oropharynx normal (no thrush) Neck: trachea midline, no thyromegaly Respiratory: normal respiratory effort, lungs clear to auscultation Cardiovascular: Rate/Rhythm: regular rate and regular rhythm Heart Sounds: no murmur Vessels: no JVD Extremities: normal capillary refill and + pedal edema (trace b/l to shins); no calf tenderness Gastrointestinal (Abdomen): Inspection/Auscultation: abdomen normal to inspection and normal bowel sounds; abdomen not distended Percussion/Palpation: abdomen soft; abdomen nontender, no guarding and abdomen not rigid Musculoskeletal: Head/Neck/Chest: normocephalic and head atraumatic Extremities: strength 5/5 throughout and + muscle atrophy; + extremities abnormal to inspection (multiple bruising over body) and no clubbing Skin: multiple areas of ecchymosis over extremities suspected to be from prior falls Neurologic: moves all extremities and awake; no focal motor deficits and not confused Speech / Cognition: normal speech and normal cognition Motor/Sensory: no tremor, no pronator drift and no sensory deficit (no neuropathy noted by patient) Coordination: normal [id number] test Psychiatric: A+Ox3, euthymic affect Genitourinary: no CVA tenderness Results & Data Results & Data ([facility]) Vital Signs (Past 12 Hours) Vital Signs Temp Pulse Resp BP Pulse Ox 11/19/19 14:00 64 21 131/67 98 11/19/19 13:31 67 17 96 11/19/19 13:30 63 19 115/63 96 11/19/19 13:01 57 L 23 96 11/19/19 13:00 58 L 21 149/68 H 97 11/19/19 12:37 58 L 22 95 11/19/19 12:35 62 18 135/93 99 11/19/19 12:31 59 L 20 98 11/19/19 12:30 57 L 18 98 11/19/19 12:01 60 16 97 11/19/19 12:00 60 20 134/73 98 11/19/19 11:54 59 L 19 97 11/19/19 11:51 59 L 22 146/81 H 98 11/19/19 11:36 36.5 C 63 20 122/76 98 Diagnostic Findings XR chest 1V portable IMPRESSION: No acute cardiopulmonary findings. ECG Indication: bradycardia and SOB/dyspnea (on exertion) Rate (beats per minute): 58 Rhythm: sinus bradycardia and sinus with SA Comparison ECG Date: from (01/13/2019) Change: the following changes noted (TW amplitude decreased in anterior leads) Code Status & VTE Plan Code Status DNR/DNI as per patient wishes VTE Prophylaxis Plan VTE Prophylaxis will be ordered: Yes PG Care Time/CCT Total # of Minutes Spent Total Time Spent with Patient: Total time spent is greater than 50% in coordination of care (as documented) at patient's floor/unit and/or counseling patient: Coding Level of Care Code 96488 Initial Inpt Care Lvl 3 Diagnoses Adult failure to thrive R62.7 Loss of appetite R63.0 Oropharyngeal dysphagia R13.12 Physical deconditioning R53.81 Weight loss R63.4 Urinary retention R33.9 Hydronephrosis, left N13.30 Prostate cancer C61 CAD (coronary artery disease) I25.10 Chronic systolic CHF (congestive heart failure) I50.22 CKD (chronic kidney disease) stage 3, GFR 30-59 ml/min N18.3 DVT prophylaxis Z29.9
[2019-11-19] MEDS ORDERED: ALUMINUM/MAGNESIUM SUSP 30 ML UDC PO PRN (16:45)
[2019-11-19] MEDS ORDERED: POLYETHYLENE (MIRALAX) 17 GM PACK PO PRN (16:45)
[2019-11-19] MEDS ORDERED: ACETAMINOPHEN 500 MG TAB PO PRN (16:45)
[2019-11-19] MEDS ORDERED: MAGNESIUM HYDROXIDE SUSP 30 ML UDC PO PRN (16:45)
[2019-11-19] MEDS ORDERED: ACETAMINOPHEN 325 MG TAB PO PRN (16:45)
[2019-11-19] MEDS: LACTATED RINGER'S 1,000 ML IV SCH (16:54)
[2019-11-19] MEDS ORDERED: ONDANSETRON INJ 2 MG/ML 2 ML VIAL IV PRN (17:01)
[2019-11-19] MEDS: predniSONE 2.5 MG TAB PO SCH (17:25)
[2019-11-19] MEDS ORDERED: IOVERSOL 100ml IV PRN (19:11)
--- NOTE | 2019-11-19 19:40 | CT Scan Report ---
CT OF THE CHEST WITH IV CONTRAST CLINICAL HISTORY: weight loss, loss of appetite COMPARISON STUDY: Chest CT October 14, 2018 and chest radiograph performed earlier today. TECHNIQUE: Following IV administration of 94 mL of Optiray-320, helical axial images of the chest we re obtained. Sagittal and coronal reconstructions were viewed as well as maximal intensity projectio ns on an independent 3-D workstation. Automated exposure control was utilized for the study. A dose lowering technique was utilized adhering to the principles of ALARA. CT DOSE: 1383.48 mGy.cm FINDINGS: No enlarged axillary, mediastinal or hilar lymph nodes are present. There is mild cardiome jay. Extensive coronary artery calcification is present. The central airways are patent. The left lo wer lobe nodule shown on exam of October 14, 2018 is no longer identified. There is mild subpleural reticu lation. Mild subpleural right upper lobe opacity is unchanged. This favors scarring. There are no deandre picious pulmonary nodules. There is no consolidation to suggest pneumonia. No suspicious lesions with in the bony thorax are noted. The abdomen and pelvis will be reported separately. IMPRESSION: 1. No acute findings within the chest. 2. No evidence for malignancy within the chest. ACT 112: Negative or not required by law. Electronically signed by: Deuce Ro M.D. 11/19/2019 7:39 PM
--- NOTE | 2019-11-19 20:05 | CT Scan Report ---
CT OF THE ABDOMEN AND PELVIS WITH CONTRAST CLINICAL HISTORY: weight loss known PSA malignancy ?new mass COMPARISON STUDY: CT of the abdomen and pelvis December 03, 2017. TECHNIQUE: Following IV administration of 94 mL of Optiray-320, axial images of the abdomen and pelvi s were obtained from the lung bases to the proximal femurs. Images were reviewed in the axial, sagitt al, and coronal planes. IV contrast was administered without complication. Automated exposure contro l was utilized for the study. A dose lowering technique was utilized adhering to the principles of A ABHISHEK. FINDINGS: Please note that the chest CT will be reported separately. The liver, spleen, adrenal gland s and pancreas are unremarkable with exception of pancreatic glandular atrophy. There are gallstones within gallbladder without evidence for acute cholecystitis. There is prominent mucosal enhancement a nd possible mild wall thickening of the first and second portions of the duodenum. Mild to moderate b ilateral hydronephrosis is noted. The ureters are dilated to the level of the bladder. There is mild distention of the bladder. The prostate appears diminutive. There may be postoperative findings from transurethral resection of the prostate. There is no evidence for a bowel obstruction. Colonic divert iculosis is noted without evidence for acute diverticulitis. There is no lymphadenopathy. Images of t he pelvis are degraded by streak artifact from left hip arthroplasty. No suspicious osseous lesions a re noted. IMPRESSION: 1. Mild to moderate hydronephrosis with dilatation of the ureters to the bladder with mild bladder di stention. The findings could be due to bladder outlet obstruction. 2. Apparent small prostate gland with possible prior TURP. Findings could be correlated with previous surgical history. A mass is considered less likely unless previous history of prostatectomy. 3. Prominent mucosal enhancement of the duodenum with mild wall thickening. This could reflect duoden itis. 4. Cholelithiasis. 5. No evidence for metastatic disease. ACT 112: Negative or not required by law. Electronically signed by: Deuce Ro M.D. 11/19/2019 8:04 PM
[2019-11-19] MEDS: FAMOTIDINE 20 MG TAB PO SCH (20:26)
[2019-11-19] MEDS: UMECLIDINIUM/VILANTEROL 62.5/25MCG 7 PUFFS/INHALER INH SCH (20:27)
[2019-11-19] MEDS: HEPARIN SOD 5,000 UNIT/0.5 ML VIAL SQ SCH (20:28)
[2019-11-19] MEDS: FERROUS SULFATE 325 MG TAB PO SCH (20:28)
[2019-11-19] MEDS: CYANOCOBALAMIN 500 MCG TABLET (VITAMIN B-12) PO SCH (20:29)
[2019-11-19] MEDS: CETIRIZINE HCL 10 MG TABLET PO SCH (20:29)
[2019-11-19] MEDS ORDERED: FLUTICASONE FUROATE 100MCG 14 PUFFS/INHALER INH SCH (21:00)
[2019-11-19] MEDS: TAMSULOSIN HCL 0.4 MG CAP PO SCH ×2 (21:17→21:19)
[2019-11-19] MEDS: MELATONIN 3 MG TAB PO PRN (21:41)
[2019-11-19] MEDS: PSYLLIUM 58.6% POWDER PACKET PO SCH (21:41)
[2019-11-19 21:56] LABS: Appearance Urine Cloudy (Clear); Bacteria Urine Automated Negative (Negative); Bilirubin Urine Negative (Negative); Blood Urine Negative (Negative); Color Urine Yellow; Epithelial Cell Urine Auto >30 /lpf (0-5); Glucose Urine UA Negative (Negative); Ketones Urine Negative (Negative); Leukocyte Esterase Urine 2+ (Negative); Nitrite Urine Negative (Negative); Protein Urine Negative (Negative); Specific Gravity Urine 1.017 (1.000-1.030); Urobilinogen Urine Negative (Negative)
[2019-11-19 22:16] LABS: Renal Epithelial Cells Urine 0-5 /lpf (0-5)
--- NOTE | 2019-11-19 23:31 | Electrocardiogram Report ---
Test Reason : Blood Pressure : / mmHG Vent. Rate : 058 BPM Atrial Rate : 058 BPM P-R Int : 194 ms QRS Dur : 082 ms QT Int : 442 ms P-R-T Axes : -27 -21 019 degrees QTc Int : 433 ms Sinus bradycardia with marked sinus arrhythmia Cannot rule out Anterior infarct , age undetermined Abnormal ECG When compared with ECG of 13-JAN-2019 13:17, Minimal criteria for Anterior infarct are now Present T wave amplitude has decreased in Anterior leads Confirmed by Jayjay Grande ([id number]) on 11/19/2019 11:31:12 PM Referred By: REFERRED SELF Confirmed By:Jayjay Grande
[2019-11-20] MEDS: LACTATED RINGER'S 1,000 ML IV SCH (02:39)
[2019-11-20 07:23] LABS: Basophils # (auto) 0.05 K/uL (0-0.2); Basophils % (auto) 0.6 %; Eosinophils # (auto) 0.23 K/uL (0-0.5); Eosinophils % (auto) 2.7 %; Hematocrit (blood only) 28.9 % (42-52); Hemoglobin 9.6 g/dL (14.0-18.0); Immature Granulocytes # (auto) 0.04 K/uL (0.00-0.02); Immature Granulocytes % (auto) 0.5 %; Lymphocytes # (auto) 2.62 K/uL (1.2-3.4); Lymphocytes % (auto) 30.7 %; Mean Corpuscular Hgb Conc 33.2 g/dL (32-36); Mean Corpuscular Volume 93.2 fL (80-100); Mean Platelet Volume 10.4 fL (7.4-10.4); Monocytes # (auto) 0.78 K/uL (0.11-0.59); Monocytes % (auto) 9.1 %; Neutrophils # (auto) 4.82 K/uL (1.4-6.5); Neutrophils % (auto) 56.4 %; Platelet Count 263 K/uL (130-400); RDW Standard Deviation 50.6 fL (36.4-46.3); White Blood Count 8.54 K/uL (4.8-10.8)
[2019-11-20 07:46] LABS: Albumin Level 2.4 gm/dl (3.4-5.0); BUN Creatinine Ratio 34.1 (10-20); Calcium 8.4 mg/dl (8.5-10.1); Creatinine Clr Calc Pharmacy 34.8 ml/min; Est GFR (African American) 52.7; Est GFR (Non-African American) 45.5; Potassium 4.2 mmol/L (3.5-5.1)
[2019-11-20 07:49] LABS: Albumin Globulin Ratio 0.7 (0.9-2); Bilirubin,Total 0.5 mg/dl (0.2-1); Ferritin 982.1 ng/ml (8-388); Globulin 3.4 gm/dl (2.5-4.0); Phosphorus 3.5 mg/dl (2.5-4.9); Total Protein 5.8 gm/dl (6.4-8.2)
[2019-11-20] MEDS: predniSONE 2.5 MG TAB PO SCH (08:03)
[2019-11-20] MEDS: CHOLECALCIFEROL 1,000 UNITS 25 MCG TAB PO SCH (09:22)
[2019-11-20] MEDS: ZINC SULFATE 220 MG CAPSULE PO SCH (09:23)
[2019-11-20] MEDS: FINASTERIDE 5 MG TAB PO SCH (09:23)
[2019-11-20] MEDS: THIAMINE HCL 100 MG TAB PO SCH (09:23)
[2019-11-20] MEDS: FERROUS SULFATE 325 MG TAB PO SCH ×2 (09:23→20:41)
[2019-11-20] MEDS: MULTIVITAMIN TAB PO SCH (09:24)
[2019-11-20] MEDS: SERTRALINE HCL 50 MG TABLET PO SCH (09:24)
--- NOTE | 2019-11-20 09:46 | Gastrointestinal Consultation ---
Date of Consultation November 20, 2019 Assessment & Plan (1) Oropharyngeal dysphagia: (2) Weight loss: (3) Abnormal CT of the abdomen: 1. Keep NPO for now. 2. EGD for further evaluation. 3. Await Celiac profile as pending. 4. Additional recommendations pending results of testing. Thank you for allowing us to participate in the care of this pleasant patient. If you have any questions or concerns, please do not hesitate to contact us. Supervising Physician Co-Signing Physician Notes I personally evaluated the patient and agree with the findings as documented by NICOLAS Meyers Exam: abd: soft, nt, nd Proceed with EGD. risks/benefits and procedure discussed with patient, who agrees to proceed History of Present Illness Reason for Consultation: Duodenitis Requesting Physician: Dr. Mann Attending Physician: Stephon Garcia MD History of Present Illness Patient is a 83 year-old male with a history prostate CA, CAD, CHF and CKD admitted with diarrhea, decreased appetite and fatigue. Patient reports he has been having a decreased appetite and occasional dysphagia for many months and has sustained an unintentional weight loss of approximately 50 pounds over the past 6 months. He denies any abdominal pain, nausea, vomiting or overt GIB. CT imaging suggestive of a nonspecific duodenitis. Celiac panel has been ordered and is pending. Patient does have a chronic normocytic anemia. Iron studies are normal. Primary team concerned for possible sprue given the CT findings and profound weight loss. Patient has been kept NPO for consideration of EGD today. Allergies Allergy/AdvReac Type Severity Reaction Status Date / Time No Known Allergies Allergy Verified 11/19/19 12:06 Home Medications Home Medications Medication Instructions Recorded Confirmed Type Zytiga 1,000 mg PO QAM #0 08/19/17 11/19/19 History cholecalciferol (vitamin D3) 2,000 unit PO QAM #0 12/03/17 11/19/19 History cyanocobalamin (vitamin B-12) 1,000 mcg SUBLINGUAL HS #0 12/03/17 11/19/19 History ferrous sulfate 325 mg PO BID #0 12/03/17 11/19/19 History multivitamin [Daily-Thalia] 1 tab PO QAM #0 12/03/17 11/19/19 History nitroglycerin [Nitrostat] 0.4 mg SUBLINGUAL DIRECTED PRN 12/03/17 11/19/19 History #0 btl acetaminophen [Tylenol Extra 500 mg PO Q8 PRN MDD 3 GRAMS/24 01/07/19 11/19/19 History Strength] HOURS. calcium carbonate [Tums] 200 mg PO DIRECTED PRN 01/07/19 11/19/19 History cetirizine [Zyrtec] 10 mg PO HS 01/07/19 11/19/19 History prednisone 2.5 mg PO BIDM 01/07/19 11/19/19 History sertraline 50 mg PO QAM 01/07/19 11/19/19 History ciclopirox 0.77 % topical gel 1 applic TOPICAL BID PRN #45 gm 01/20/19 11/19/19 Rx fluticasone fur. 100 mcg-umeclid 1 inh INHALATION HS #28 ea 03/05/19 11/19/19 Rx 62.5 mcg-vilant 25 mcg inhalat.powder buspirone 5 mg tablet 5 mg PO TID 06/12/19 11/19/19 History dextromethorphan-guaifenesin 30 1 tab PO Q12H #60 tab 11/06/19 11/19/19 Rx mg-600 mg tablet extended apodoxp56 hr food supplemt, lactose-reduced 1 ea PO BID #237 ml 11/06/19 11/19/19 Rx ipratropium 0.5 mg-albuterol 3 mg 3 ml INH BID #180 ml 11/06/19 11/19/19 Rx (2.5 mg base)/3 mL nebulization soln ketotifen fumarate 0.025 % (0.035 1 drops OP BID #5 ml 11/06/19 11/19/19 Rx %) eye drops lidocaine 4 % topical patch 1 patch TOP DAILY PRN #10 ea 11/06/19 11/19/19 Rx neomycin 3.5 mg-bacitracn Zn 400 See Rx Instructions TOP .COMPLEX 11/06/19 11/19/19 Rx unit-polymyxin 5,000 unit/g top #56 gm spray psyllium husk (aspartame) 3.4 gram 1 packet PO QAM 11/06/19 11/19/19 History oral powder packet Gentamicin 2 spray DANNIELLE TID 11/19/19 11/19/19 History Patient History Medical History Acute UTI (Inactive) Anemia (Inactive) Chronic systolic CHF (congestive heart failure) CKD (chronic kidney disease) stage 3, GFR 30-59 ml/min CKD (chronic kidney disease), stage III (Acute) Generalized weakness (Inactive) H/O blood clots (Chronic) Hip fracture (Resolved) HLD (hyperlipidemia) (Acute) HTN (hypertension) (Acute) Hydronephrosis (Acute) Hydroureter, left (Acute) Hyponatremia (Acute) Prostate cancer (Chronic) Urinary retention (Acute) Surgical History History of coronary artery stent placement (Chronic) History of coronary artery stent placement (Acute) History of left hip replacement (Acute) S/P knee replacement Status post cardiac surgery Family History Brother Pancreatic cancer Other Family history non-contributory Social History Preferred Language: Urdu Communication Ability: Effective Visual Impairment: No Limitations Hearing Ability: Normal Emergency Medicine Physician Required: No Beliefs That Will Affect Care: None marital status: Current Living Situation: Personal Care Facility Current Living Situation Comment: [facility] current occupational status: retired Other Information That Helps Us Care for You: No Feels Safe at Home: Yes Safety Concerns: Feels Safe At This Time Smoking Status: Never smoker Cigarettes Per Day: 20 ; Hx Alcohol Use: Yes Hx Substance Use: No Childhood Exposure to Second-Hand Smoke: No Dental Care, Regularly: Yes Physical Activity Frequency: Does not Exercise Seatbelt Use: always Sunscreen Use: No Review of Systems Constitutional: as per Subjective / HPI Eyes: no problem reported Ear, Nose, Mouth, Throat: as per Subjective / HPI Respiratory: no cough and no dyspnea Cardiovascular: no chest pain and no palpitations Gastrointestinal: as per Subjective / HPI Genitourinary: no problem reported Musculoskeletal: no problem reported Integumentary: no rash Neurologic: no dizziness and no syncope Psychiatric: no problem reported Endocrine: no problem reported Hematologic / Lymphatic: no problem reported Physical Exam Constitutional: WD/WN, vitals as above well developed and well nourished Eyes: EOM intact bilaterally Neck: normal visual inspection Respiratory: normal respiratory effort, lungs clear to auscultation Cardiovascular: Rate/Rhythm: regular rate and regular rhythm Gastrointestinal (Abdomen): normal bowel sounds, soft, nontender, no hepatosplenomegaly Musculoskeletal: Extremities: extremities normal to inspection Skin: no rashes, warm and dry Psychiatric: A+Ox3, euthymic affect Results & Data ([facility]) Vital Signs (Past 12 Hours) Vital Signs Temp Pulse Resp BP BP Pulse Ox 11/20/19 06:55 36.5 C 60 18 127/62 97 11/19/19 23:28 36.8 C 63 20 114/64 96 Laboratory Results Abnormal lab results 11/19/19 11/19/19 11/19/19 Range/Units 12:38 12:38 12:38 RBC 3.45 L (4.7-6.1) M/uL Hgb 10.6 L (14.0-18.0) g/dL Hct 32.4 L (42-52) % RDW Std Deviation 51.1 H (36.4-46.3) fL RDW Coeff of Guillermo 15.0 H (11.5-14.5) % MPV 10.6 H (7.4-10.4) fL Immature Gran # (Auto) 0.04 H (0.00-0.02) K/uL Neut # (Auto) 6.97 H (1.4-6.5) K/uL [place] # (Auto) 0.79 H (0.11-0.59) K/uL Sodium 134 L (136-145) mmol/L Carbon Dioxide 20 L (21-32) mmol/L BUN 57 H (7-18) mg/dl Creatinine 1.60 H (0.6-1.4) mg/dl BUN/Creatinine Ratio 35.4 H (10-20) Glucose 106 H (70-99) mg/dl Calcium (8.5-10.1) mg/dl Ferritin (8-388) ng/ml AST 49 H (15-37) U/L Total Protein (6.4-8.2) gm/dl Albumin 2.9 L (3.4-5.0) gm/dl Albumin/Globulin Ratio 0.7 L (0.9-2) Prostate Specific Ag 31.500 H (0-4) ng/ml Urine Appearance (Clear) Ur Leukocyte Esterase (Negative) Urine RBC (Auto) (0-4) /hpf U Hyaline Cast (Auto) (0-5) /lpf U Epithel Cells (Auto) (0-5) /lpf 11/19/19 11/20/19 11/20/19 Range/Units 21:23 06:58 06:58 RBC 3.10 L (4.7-6.1) M/uL Hgb 9.6 L (14.0-18.0) g/dL Hct 28.9 L (42-52) % RDW Std Deviation 50.6 H (36.4-46.3) fL RDW Coeff of Guillermo 15.0 H (11.5-14.5) % MPV (7.4-10.4) fL Immature Gran # (Auto) 0.04 H (0.00-0.02) K/uL Neut # (Auto) (1.4-6.5) K/uL [place] # (Auto) 0.78 H (0.11-0.59) K/uL Sodium 135 L (136-145) mmol/L Carbon Dioxide (21-32) mmol/L BUN 48 H (7-18) mg/dl Creatinine (0.6-1.4) mg/dl BUN/Creatinine Ratio 34.1 H (10-20) Glucose (70-99) mg/dl Calcium 8.4 L (8.5-10.1) mg/dl Ferritin 982.1 H (8-388) ng/ml AST 42 H (15-37) U/L Total Protein 5.8 L (6.4-8.2) gm/dl Albumin 2.4 L (3.4-5.0) gm/dl Albumin/Globulin Ratio 0.7 L (0.9-2) Prostate Specific Ag (0-4) ng/ml Urine Appearance Cloudy A (Clear) Ur Leukocyte Esterase 2+ H (Negative) Urine RBC (Auto) 5-10 H (0-4) /hpf U Hyaline Cast (Auto) 5-10 H (0-5) /lpf U Epithel Cells (Auto) >30 H (0-5) /lpf PG Care Time/CCT Total # of Minutes Spent Total Time Spent with Patient: Total time spent is greater than 50% in coordination of care (as documented) at patient's floor/unit and/or counseling patient: Coding Level of Care Code 39895 Initial Inpt Care Lvl 3 Diagnoses Oropharyngeal dysphagia R13.[address] loss R[address] of the abdomen R93.5
[2019-11-20] MEDS: HEPARIN SOD 5,000 UNIT/0.5 ML VIAL SQ SCH ×2 (09:56→20:41)
[2019-11-20] MEDS: ASPIRIN 81 MG ECTAB PO SCH (09:56)
[2019-11-20] MEDS: PSYLLIUM 58.6% POWDER PACKET PO SCH ×2 (09:57→20:41)
[2019-11-20] MEDS: FAMOTIDINE 20 MG TAB PO SCH (10:30)
--- NOTE | 2019-11-20 11:41 | Hospitalist Progress Note ---
Date of Service November 20, 2019 Assessment & Plan (1) Adult failure to thrive: Unclear if just general progression of chronic disease including his malignant prostate cancer with loss of appetite vs. more acute reversible pathology. - Ddx includes GI issue (CT notes duodenitis) vs. cancer vs. medications. 1) Will get EGD on Saturday for duodenal investigation. TTg pending for celiac disease. 2) Will get more information re: prostate cancer. 3) Will adjust meds as able. Zytiga (abiraterone) possibly the cause. Could also have candidal esophagitis from steroid inhalers. (2) Loss of appetite: This appears to be the predominating symptom, therefore causing his weight loss. - As above (3) Oropharyngeal dysphagia: Patient reporting occasional food getting stuck in throat. - INJECTION PRESS OPERATOR eval (4) Physical deconditioning: As a result of failure to thrive. - PT/OT (5) Prostate cancer: PSA was 31 this admission; up from 20 in 03/2019 that has been pretty consistent prior to that. - Will attempt to discuss with Dr. Patiño as able; [facility] oncology really do not do in-hospital consults any longer, so will attempt to contact by phone. (6) Urinary retention: History of this suspect secondary to prostate ca. +/- radiation therapy. Tamsulosin or finasteride on hold for hypotension as per med list but unclear when this was stopped. - Given risk of recurrence of this and history of UTIs will restart both - Bladder scan Qshift - call physician if > 300ml (7) CAD (coronary artery disease): 1vCABG in 2008. No chest pain noted. - ASA 81mg PO daily - Carvedilol on hold due to bradycardia and hypotension - Was on fenofibrate in the past (per cardiology note from 04/2019) - TTE pending (8) Chronic systolic CHF (congestive heart failure): No prior echo in my computer. Lasix on hold as per med list although unclear when this was held, not hypervolemic on exam, request O/P note and last echo from Dr Lim, current EKG unremarkable - Lasix presently on hold for hypotension - TTE pending (9) CKD (chronic kidney disease) stage 3, GFR 30-59 ml/min: At baseline, Cr. ~1.4. Vitamin D was 35 this admission. - Monitor (10) DVT prophylaxis: Does have a prior history of DVT. - Heparin 5000 units SQ BID Admission and Anticipated Discharge Date Admission Date: November 19, 2019 Subjective Feeling ok this morning. No major concerns. Reports ongoing loss of appetite, no real nausea or vomiting while eating. Reports no fevers/chills, chest pain, shortness of breath, abdominal pain, nausea, or vomiting. Physical Exam Constitutional: WD/WN, vitals as above Eyes: EOM intact bilaterally; no conjunctival abnormality ENMT: external ear and nose normal, oropharynx normal Neck: trachea midline, no thyromegaly normal visual inspection Respiratory: normal respiratory effort, lungs clear to auscultation no respiratory distress Cardiovascular: RRR, no murmur, no edema Gastrointestinal (Abdomen): Inspection/Auscultation: abdomen normal to inspection; abdomen not distended Musculoskeletal: no cyanosis or clubbing, extremities motor strength 5/5 Skin: no rashes, warm and dry Neurologic: moves all extremities and awake Psychiatric: Orientation: alert, oriented to person and cooperative Results & Data Results & Data ([facility]) Vital Signs (Past 12 Hours) Vital Signs Temp Pulse Resp BP Pulse Ox 11/20/19 06:55 36.5 C 60 18 127/62 97 PG Care Time/CCT Total # of Minutes Spent Total Time Spent with Patient: Total time spent is greater than 50% in coordination of care (as documented) at patient's floor/unit and/or counseling patient: Coding Level of Care Code 50453 Subseq Hosp Care Lvl 3 Diagnoses Adult failure to thrive R62.7 Loss of appetite R63.0 Oropharyngeal dysphagia R13.12 Physical deconditioning R53.81 Prostate cancer C61 Urinary retention R33.9 CAD (coronary artery disease) I25.10 Chronic systolic CHF (congestive heart failure) I50.22 CKD (chronic kidney disease) stage 3, GFR 30-59 ml/min N18.3 DVT prophylaxis Z29.9
--- NOTE | 2019-11-20 11:43 | Communication Note ---
Date of Service: November 20, 2019 GI brief note: after discussing further with patient, we will hold off on the EGD for now. If he is amenable, then we can plan to perform it on saturday11/23/19 if he is still hospitalized, or can do as an outpatient. Eloy Gregory MD Gastroenterology
[2019-11-20 13:01] LABS: Folate (Folic Acid) 8.02 ng/ml (>5.38); Vitamin B12 > 2000 pg/ml (211-911)
[2019-11-20] MEDS: predniSONE 10 MG TABLET PO SCH (17:43)
[2019-11-20] MEDS: CYANOCOBALAMIN 500 MCG TABLET (VITAMIN B-12) PO SCH (20:41)
[2019-11-20] MEDS: CETIRIZINE HCL 10 MG TABLET PO SCH (20:41)
[2019-11-20] MEDS: TAMSULOSIN HCL 0.4 MG CAP PO SCH (20:41)
[2019-11-20] MEDS: UMECLIDINIUM/VILANTEROL 62.5/25MCG 7 PUFFS/INHALER INH SCH (20:42)
[2019-11-21 07:24] LABS: Hematocrit (blood only) 28.7 % (42-52); Hemoglobin 9.3 g/dL (14.0-18.0); Mean Corpuscular Hemoglobin 30.5 pg (25-34); Mean Corpuscular Hgb Conc 32.4 g/dL (32-36); Mean Corpuscular Volume 94.1 fL (80-100); Mean Platelet Volume 10.2 fL (7.4-10.4); Platelet Count 254 K/uL (130-400); RDW Coefficient of Variation 15.5 % (11.5-14.5); Red Blood Count 3.05 M/uL (4.7-6.1); White Blood Count 8.66 K/uL (4.8-10.8)
[2019-11-21 07:52] LABS: Calcium 8.4 mg/dl (8.5-10.1); Creatinine Clr Calc Pharmacy 36.1 ml/min; Est GFR (African American) 55.1; Est GFR (Non-African American) 47.5; Magnesium 1.7 mg/dl (1.8-2.4); Phosphorus 3.4 mg/dl (2.5-4.9); Potassium 4.2 mmol/L (3.5-5.1)
[2019-11-21] MEDS ORDERED: CALCIUM GLUCONATE 10% 10 ML VIAL IV STA (09:00)
[2019-11-21] MEDS ORDERED: CALCIUM GLUCONATE 10% 2,000 MG in SODIUM CHLORIDE 0.9% 50 ML IV ONE (09:15)
[2019-11-21] MEDS: predniSONE 10 MG TABLET PO SCH ×2 (09:44→16:56)
[2019-11-21] MEDS: ASPIRIN 81 MG ECTAB PO SCH (09:47)
[2019-11-21] MEDS: FERROUS SULFATE 325 MG TAB PO SCH ×2 (09:47→20:05)
[2019-11-21] MEDS: FAMOTIDINE 20 MG TAB PO SCH (09:48)
[2019-11-21] MEDS: FINASTERIDE 5 MG TAB PO SCH (09:48)
[2019-11-21] MEDS: PSYLLIUM 58.6% POWDER PACKET PO SCH ×2 (09:48→20:06)
[2019-11-21] MEDS: MULTIVITAMIN TAB PO SCH (09:48)
[2019-11-21] MEDS: HEPARIN SOD 5,000 UNIT/0.5 ML VIAL SQ SCH ×2 (09:48→20:06)
[2019-11-21] MEDS: THIAMINE HCL 100 MG TAB PO SCH (09:49)
[2019-11-21] MEDS: CHOLECALCIFEROL 1,000 UNITS 25 MCG TAB PO SCH (09:49)
[2019-11-21] MEDS: ZINC SULFATE 220 MG CAPSULE PO SCH (09:49)
[2019-11-21] MEDS: SERTRALINE HCL 50 MG TABLET PO SCH (09:49)
[2019-11-21] MEDS: MAGNESIUM SULFATE / D5W 1 GM/100 ML BAG IV SCH ×2 (10:24→12:28)
--- NOTE | 2019-11-21 12:23 | XCELERA ---
[id number]
--- NOTE | 2019-11-21 15:21 | Hospitalist Progress Note ---
Date of Service November 21, 2019 Assessment & Plan (1) Adult failure to thrive: Unclear if just general progression of chronic disease including his malignant prostate cancer with loss of appetite vs. more acute reversible pathology. - Ddx includes GI issue (CT notes duodenitis) vs. cancer vs. medications. 1) Will get EGD on Saturday for duodenal investigation. TTg pending for celiac disease. 2) Probably substantially affected by his Zytiga. It can cause adrenal ins ufficiency, and his cortisol was 2.[address] Patiño's approval, stopped Zytiga and increased prednisone to 10 mg PO BIDM. Feeling much better already. (2) Loss of appetite: This appears to be the predominating symptom, therefore causing his weight loss. - As above (3) Oropharyngeal dysphagia: Patient reporting occasional food getting stuck in throat. - WATER PURIFIER eval went well. He is now on minced and moist diet. (4) Physical deconditioning: As a result of failure to thrive. - PT/OT (5) Prostate cancer: PSA was 31 this admission; up from 20 in 03/2019 that has been pretty consistent prior to that. - Will need to follow up outpatient to discuss restarting Zytiga and further surveillance. (6) Urinary retention: History of this suspect secondary to prostate ca. +/- radiation therapy. Tamsulosin or finasteride on hold for hypotension as per med list but unclear when this was stopped. - Given risk of recurrence of this and history of UTIs will restart both - Bladder scan Qshift - call physician if > 300ml -> No major retention so far. Most bladder scans ~150 mL. (7) CAD (coronary artery disease): 1vCABG in 2008. No chest pain noted. - ASA 81mg PO daily - Carvedilol on hold due to bradycardia and hypotension in the last day or two - Now that BP normal on prednisone; will restart low-dose carvedilol. - Was on fenofibrate in the past (per cardiology note from 04/2019) (8) Chronic systolic CHF (congestive heart failure): Echo on 11/19 showed EF 65-70%. So, actually his heart must have recovered and now no longer systolic dysfunction. - Weight is presently 65 kg today which I think is a good dry weight for him. - Lasix presently on hold for hypotension prior to admission. Will monitor volume status. (9) CKD (chronic kidney disease) stage 3, GFR 30-59 ml/min: At baseline, Cr. ~1.4. Vitamin D was 35 this admission. - Monitor; Cr presently at baseline. (10) DVT prophylaxis: Does have a prior history of DVT. - Heparin 5000 units SQ BID Admission and Anticipated Discharge Date Admission Date: November 19, 2019 Subjective Doing great today. In good spirits. Has a good appetite. Reports no fevers/chills, chest pain, shortness of breath, abdominal pain, nausea, or vomiting. Physical Exam Constitutional: WD/WN, vitals as above Eyes: EOM intact bilaterally; no conjunctival abnormality ENMT: external ear and nose normal, oropharynx normal Neck: trachea midline, no thyromegaly normal visual inspection Respiratory: normal respiratory effort, lungs clear to auscultation no respiratory distress Cardiovascular: RRR, no murmur, no edema Gastrointestinal (Abdomen): Inspection/Auscultation: abdomen normal to inspection; abdomen not distended Musculoskeletal: no cyanosis or clubbing, extremities motor strength 5/5 Skin: no rashes, warm and dry Neurologic: moves all extremities and awake Psychiatric: Orientation: alert, oriented to person and cooperative Results & Data Results & Data ([facility]) Vital Signs (Past 12 Hours) Vital Signs Temp Pulse Pulse Resp BP Pulse Ox 11/21/19 15:00 36.5 C 68 16 141/79 H 99 11/21/19 13:40 80 162/78 H 11/21/19 07:45 61 187/90 H 11/21/19 07:30 36.4 C L 62 18 180/90 H 97 PG Care Time/CCT Total # of Minutes Spent Total Time Spent with Patient: Total time spent is greater than 50% in coordination of care (as documented) at patient's floor/unit and/or counseling patient: Coding Level of Care Code 14730 Subseq Hosp Care Lvl 3 Diagnoses Adult failure to thrive R62.7 Loss of appetite R63.0 Oropharyngeal dysphagia R13.12 Physical deconditioning R53.81 Prostate cancer C61 Urinary retention R33.9 CAD (coronary artery disease) I25.10 Chronic systolic CHF (congestive heart failure) I50.22 CKD (chronic kidney disease) stage 3, GFR 30-59 ml/min N18.3 DVT prophylaxis Z29.9
[2019-11-21] MEDS: UMECLIDINIUM/VILANTEROL 62.5/25MCG 7 PUFFS/INHALER INH SCH (20:04)
[2019-11-21] MEDS: TAMSULOSIN HCL 0.4 MG CAP PO SCH (20:06)
[2019-11-21] MEDS: CYANOCOBALAMIN 500 MCG TABLET (VITAMIN B-12) PO SCH (20:07)
[2019-11-21] MEDS: CETIRIZINE HCL 10 MG TABLET PO SCH (20:07)
[2019-11-21] MEDS: MELATONIN 3 MG TAB PO PRN (21:34)
[2019-11-22 04:40] LABS: Hematocrit (blood only) 26.7 % (42-52); Hemoglobin 8.7 g/dL (14.0-18.0); Mean Corpuscular Hemoglobin 30.3 pg (25-34); Mean Corpuscular Hgb Conc 32.6 g/dL (32-36); Platelet Count 246 K/uL (130-400); RDW Coefficient of Variation 15.1 % (11.5-14.5); RDW Standard Deviation 51.4 fL (36.4-46.3); Red Blood Count 2.87 M/uL (4.7-6.1); White Blood Count 9.27 K/uL (4.8-10.8)
[2019-11-22 05:11] LABS: BUN Creatinine Ratio 28.3 (10-20); Calcium 8.6 mg/dl (8.5-10.1); Est GFR (African American) 60.5; Est GFR (Non-African American) 52.2; Potassium 4.5 mmol/L (3.5-5.1)
[2019-11-22] MEDS: HEPARIN SOD 5,000 UNIT/0.5 ML VIAL SQ SCH ×2 (09:42→21:05)
[2019-11-22] MEDS: ASPIRIN 81 MG ECTAB PO SCH (09:44)
[2019-11-22] MEDS: predniSONE 10 MG TABLET PO SCH ×2 (09:44→17:39)
[2019-11-22] MEDS: FERROUS SULFATE 325 MG TAB PO SCH ×2 (09:45→21:02)
[2019-11-22] MEDS: PSYLLIUM 58.6% POWDER PACKET PO SCH ×2 (09:45→21:03)
[2019-11-22] MEDS: ZINC SULFATE 220 MG CAPSULE PO SCH (09:46)
[2019-11-22] MEDS: FAMOTIDINE 20 MG TAB PO SCH (09:46)
[2019-11-22] MEDS: FINASTERIDE 5 MG TAB PO SCH (09:46)
[2019-11-22] MEDS: MULTIVITAMIN TAB PO SCH (09:46)
[2019-11-22] MEDS: SERTRALINE HCL 50 MG TABLET PO SCH (09:46)
[2019-11-22] MEDS: CHOLECALCIFEROL 1,000 UNITS 25 MCG TAB PO SCH (09:46)
[2019-11-22] MEDS: THIAMINE HCL 100 MG TAB PO SCH (09:46)
--- NOTE | 2019-11-22 15:08 | Hospitalist Progress Note ---
Date of Service November 22, 2019 Assessment & Plan (1) Adult failure to thrive: Unclear if just general progression of chronic disease including his malignant prostate cancer with loss of appetite vs. more acute reversible pathology. - Ddx includes GI issue (CT notes duodenitis) vs. cancer vs. medications. 1) Will get EGD on Saturday for duodenal investigation. TTg pending for celiac disease. 2) Probably substantially affected by his Zytiga. It can cause adrenal ins ufficiency, and his cortisol was 2.[address] Patiño's approval, stopped Zytiga and increased prednisone to 10 mg PO BIDM. Feeling much better already. -> Stable today. Will get EGD tomorow with Dr. Gregory and possibly back to assisted living Saturday or Saturday. Did decline to work with PT, so may need to encourge that. (2) Loss of appetite: This appears to be the predominating symptom, therefore causing his weight loss. - As above (3) Oropharyngeal dysphagia: Patient reporting occasional food getting stuck in throat. - EXCAVATOR BACKHOE OPERATOR eval went well. He is now on minced and moist diet. (4) Physical deconditioning: As a result of failure to thrive. - PT/OT -> OT says [facility] vs. SNF. PT pending as he refused on Saturday. (5) Prostate cancer: PSA was 31 this admission; up from 20 in 03/2019 that has been pretty cons istent prior to that. - Will need to follow up outpatient to discuss restarting Zytiga and further surveillance. (6) Urinary retention: History of this suspect secondary to prostate ca. +/- radiation therapy. Tamsulosin or finasteride on hold for hypotension as per med list but unclear when this was stopped. - Given risk of recurrence of this and history of UTIs will restart both - Bladder scan Qshift - call physician if > 300ml -> No major retention so far. Most bladder scans ~150 mL. (7) CAD (coronary artery disease): 1vCABG in 2008. No chest pain noted. - ASA 81mg PO daily - Carvedilol on hold due to bradycardia and hypotension in the last day or two - Now that BP normal on prednisone; will restart carvedilol. Home dose is 6.25 mg PO BID. - Was on fenofibrate in the past (per cardiology note from 04/2019) (8) Chronic systolic CHF (congestive heart failure): Echo on 11/19 showed EF 65-70%. So, actually his heart must have recovered and now no longer systolic dysfunction. - Weight is presently 65 kg today which I think is a good dry weight for him. - Lasix presently on hold for hypotension prior to admission. Will monitor volume status. (9) CKD (chronic kidney disease) stage 3, GFR 30-59 ml/min: At baseline, Cr. ~1.4. Vitamin D was 35 this admission. - Monitor; Cr presently at baseline. (10) DVT prophylaxis: Does have a prior history of DVT. - Heparin 5000 units SQ BID Admission and Anticipated Discharge Date Admission Date: November 19, 2019 Subjective Doing well today. No major concerns. Appetite is improved today. Reports no fevers/chills, chest pain, shortness of breath, abdominal pain, nausea, or vomiting. Physical Exam Constitutional: WD/WN, vitals as above Eyes: EOM intact bilaterally; no conjunctival abnormality ENMT: external ear and nose normal, oropharynx normal Neck: trachea midline, no thyromegaly normal visual inspection Respiratory: normal respiratory effort, lungs clear to auscultation no respiratory distress Cardiovascular: RRR, no murmur, no edema Gastrointestinal (Abdomen): Inspection/Auscultation: abdomen normal to inspection; abdomen not distended Musculoskeletal: no cyanosis or clubbing, extremities motor strength 5/5 Skin: no rashes, warm and dry Neurologic: moves all extremities and awake Psychiatric: Orientation: alert, oriented to person and cooperative Results & Data Results & Data ([facility]) Vital Signs (Past 12 Hours) Vital Signs Temp Pulse Resp BP Pulse Ox 11/22/19 07:19 36.4 C L 57 L 17 165/76 H 98 PG Care Time/CCT Total # of Minutes Spent Total Time Spent with Patient: Total time spent is greater than 50% in coordination of care (as documented) at patient's floor/unit and/or counseling patient: Coding Level of Care Code 72085 Subseq Hosp Care Lvl 2 Diagnoses Adult failure to thrive R62.7 Loss of appetite R63.0 Oropharyngeal dysphagia R13.12 Physical deconditioning R53.81 Prostate cancer C61 Urinary retention R33.9 CAD (coronary artery disease) I25.10 Chronic systolic CHF (congestive heart failure) I50.22 CKD (chronic kidney disease) stage 3, GFR 30-59 ml/min N18.3 DVT prophylaxis Z29.9
[2019-11-22] MEDS: UMECLIDINIUM/VILANTEROL 62.5/25MCG 7 PUFFS/INHALER INH SCH (21:01)
[2019-11-22] MEDS: TAMSULOSIN HCL 0.4 MG CAP PO SCH (21:02)
[2019-11-22] MEDS: carvediloL 6.25 MG TAB PO SCH (21:02)
[2019-11-22] MEDS: CETIRIZINE HCL 10 MG TABLET PO SCH (21:03)
[2019-11-22] MEDS: CYANOCOBALAMIN 500 MCG TABLET (VITAMIN B-12) PO SCH (21:03)
[2019-11-23 05:02] LABS: Hematocrit (blood only) 26.7 % (42-52); Hemoglobin 8.8 g/dL (14.0-18.0); Mean Corpuscular Hemoglobin 30.4 pg (25-34); Mean Corpuscular Volume 92.4 fL (80-100); Mean Platelet Volume 10.1 fL (7.4-10.4); Platelet Count 231 K/uL (130-400); RDW Coefficient of Variation 15.4 % (11.5-14.5); RDW Standard Deviation 52.4 fL (36.4-46.3); Red Blood Count 2.89 M/uL (4.7-6.1); White Blood Count 8.47 K/uL (4.8-10.8)
[2019-11-23 05:27] LABS: Albumin Level 2.4 gm/dl (3.4-5.0); BUN Creatinine Ratio 29.9 (10-20); Calcium 8.3 mg/dl (8.5-10.1); Est GFR (African American) 60.5; Est GFR (Non-African American) 52.2; Magnesium 1.8 mg/dl (1.8-2.4); Potassium 4.7 mmol/L (3.5-5.1)
[2019-11-23 05:29] LABS: Albumin Globulin Ratio 0.8 (0.9-2); Bilirubin,Total 0.2 mg/dl (0.2-1); Globulin 3.2 gm/dl (2.5-4.0); Phosphorus 3.5 mg/dl (2.5-4.9); Total Protein 5.6 gm/dl (6.4-8.2)
[2019-11-23] MEDS: predniSONE 10 MG TABLET PO SCH ×2 (08:35→17:25)
[2019-11-23] MEDS: THIAMINE HCL 100 MG TAB PO SCH (08:35)
[2019-11-23] MEDS: FERROUS SULFATE 325 MG TAB PO SCH ×2 (08:36→21:05)
[2019-11-23] MEDS: CHOLECALCIFEROL 1,000 UNITS 25 MCG TAB PO SCH (08:37)
[2019-11-23] MEDS: FINASTERIDE 5 MG TAB PO SCH (08:37)
[2019-11-23] MEDS: FAMOTIDINE 20 MG TAB PO SCH (08:37)
[2019-11-23] MEDS: PSYLLIUM 58.6% POWDER PACKET PO SCH ×2 (08:38→21:05)
[2019-11-23] MEDS: SERTRALINE HCL 50 MG TABLET PO SCH (08:38)
[2019-11-23] MEDS: MULTIVITAMIN TAB PO SCH (08:38)
[2019-11-23] MEDS: ZINC SULFATE 220 MG CAPSULE PO SCH (08:39)
[2019-11-23] MEDS: carvediloL 6.25 MG TAB PO SCH ×2 (08:42→21:03)
[2019-11-23] MEDS: HEPARIN SOD 5,000 UNIT/0.5 ML VIAL SQ SCH ×2 (08:43→21:09)
--- NOTE | 2019-11-23 10:43 | History & Physical Bridge Note ---
Date of Service November 23, 2019 History & Physical Bridge Note I have examined the patient, reviewed the History & Physical and in the interval since the performance of the History & Physical I have noted the following changes of clinical significance: no changes noted. Proceed with EGD today. Supervising Physician Co-Signing Physician Notes Agree with MELINDA Hwang Abd: Soft, NT, ND, +BS Proceed with EGD
--- NOTE | 2019-11-23 14:39 | Anesthesiology Consultation ---
Date of Service November 23, 2019 Assessment & Plan Chart Review Chart Review: Acceptable Risk for Surgery Consults Requested none History Surgery Operation Date: 11/20/19 16:30 Proposed Procedures p Esophagogastroduodenoscopy Dr. Gregory - Eloy Gregory MD Operation Date: 11/23/19 15:30 Proposed Procedures p Esophagogastroduodenoscopy Dr Cole - Benito Cole, DO Height/Weight Height: 5 ft 6 in Weight: 65 kg Allergies Allergy/AdvReac Type Severity Reaction Status Date / Time No Known Allergies Allergy Verified 11/19/19 12:06 Medications Home Medications Medication Instructions Recorded Confirmed Last Taken Zytiga 1,000 mg PO QAM #0 08/19/17 11/19/19 11/19/19 cholecalciferol (vitamin D3) 2,000 unit PO QAM #0 12/03/17 11/19/19 11/19/19 cyanocobalamin (vitamin B-12) 1,000 mcg SUBLINGUAL HS #0 12/03/17 11/19/19 11/19/19 ferrous sulfate 325 mg PO BID #0 12/03/17 11/19/19 11/19/19 multivitamin [Daily-Thalia] 1 tab PO QAM #0 12/03/17 11/19/19 11/19/19 nitroglycerin [Nitrostat] 0.4 mg SUBLINGUAL DIRECTED PRN 12/03/17 11/19/19 Unknown #0 btl acetaminophen [Tylenol Extra 500 mg PO Q8 PRN MDD 3 GRAMS/24 01/07/19 11/19/19 11/19/19 Strength] HOURS. calcium carbonate [Tums] 200 mg PO DIRECTED PRN 01/07/19 11/19/19 11/19/19 cetirizine [Zyrtec] 10 mg PO HS 01/07/19 11/19/19 11/18/19 prednisone 2.5 mg PO BIDM 01/07/19 11/19/19 11/19/19 sertraline 50 mg PO QAM 01/07/19 11/19/19 11/19/19 ciclopirox 0.77 % topical gel 1 applic TOPICAL BID PRN #45 gm 01/20/19 11/19/19 11/19/19 fluticasone fur. 100 mcg-umeclid 1 inh INHALATION HS #28 ea 03/05/19 11/19/19 11/18/19 62.5 mcg-vilant 25 mcg inhalat.powder buspirone 5 mg tablet 5 mg PO TID 06/12/19 11/19/19 11/19/19 dextromethorphan-guaifenesin 30 1 tab PO Q12H #60 tab 11/06/19 11/19/19 11/19/19 mg-600 mg tablet extended [id number] hr food supplemt, lactose-reduced 1 ea PO BID #237 ml 11/06/19 11/19/19 11/19/19 ipratropium 0.5 mg-albuterol 3 mg 3 ml INH BID #180 ml 11/06/19 11/19/19 11/19/19 (2.5 mg base)/3 mL nebulization soln ketotifen fumarate 0.025 % (0.035 1 drops OP BID #5 ml 11/06/19 11/19/19 11/19/19 %) eye drops lidocaine 4 % topical patch 1 patch TOP DAILY PRN #10 ea 11/06/19 11/19/19 11/19/19 neomycin 3.5 mg-bacitracn Zn 400 See Rx Instructions TOP .COMPLEX 11/06/19 11/19/19 11/19/19 unit-polymyxin 5,000 unit/g top #56 gm spray psyllium husk (aspartame) 3.4 gram 1 packet PO QAM 11/06/19 11/19/19 11/19/19 oral powder packet Gentamicin 2 spray DANNIELLE TID 11/19/19 11/19/19 11/19/19 aspirin [Aspir-81] 81 mg PO DAILY 11/22/19 11/22/19 Unknown carvedilol 6.25 mg PO BID 11/22/19 11/22/19 Unknown finasteride 5 mg PO DAILY 11/22/19 11/22/19 Unknown furosemide 10 mg PO 3XWK 11/22/19 11/22/19 Unknown tamsulosin 0.4 mg PO HS 11/22/19 11/22/19 Unknown Active Medications Generic Name Dose Route Start Last Admin Trade Name Freq PRN Reason Stop Dose Admin Buspirone HCl 5 mg 11/19/19 21:00 11/23/19 13:11 Buspar PO 12/19/19 20:59 5 mg TID HERO Administration Carvedilol 6.25 mg 11/22/19 21:00 11/23/19 08:42 Coreg PO 12/22/19 20:59 6.25 mg BID HERO Administration Cetirizine HCl 10 mg 11/19/19 21:00 11/22/19 21:03 Zyrtec PO 12/19/19 20:59 10 mg HS HERO Administration Cyanocobalamin 1,000 mcg 11/19/19 21:00 11/22/19 21:03 Vitamin B-12 PO 12/19/19 20:59 1,000 mcg HS HERO Administration Famotidine 20 mg 11/19/19 19:30 11/23/19 08:37 Pepcid PO 12/19/19 19:29 20 mg QAM HERO Administration Ferrous Sulfate 325 mg 11/19/19 21:00 11/23/19 08:36 Feosol PO 12/19/19 20:59 325 mg BID HERO Administration Finasteride 5 mg 11/20/19 09:00 11/23/19 08:37 Proscar PO 12/20/19 08:59 5 mg QAM HERO Administration Heparin Sodium (Porcine) 5,000 units 11/19/19 21:00 11/23/19 08:43 Heparin Sodium (Porcine) SQ 12/19/19 20:59 5,000 units Q12 HERO Administration Melatonin 3 mg 11/19/19 21:13 11/21/19 21:34 Melatonin PO 12/19/19 21:12 3 mg HS PRN Administration Sleep Multivitamins 1 tab 11/20/19 09:00 11/23/19 08:38 Multivitamin Tab PO 12/20/19 08:59 1 tab QAM HERO Administration Prednisone 10 mg 11/20/19 17:00 11/23/19 08:35 Prednisone PO 12/20/19 16:59 10 mg BIDM HERO Administration Psyllium Hydrophilic Mucilloid 1 pkt 11/19/19 21:15 11/23/19 08:38 Metamucil PO 12/19/19 21:14 Not Given BID HERO Sertraline HCl 75 mg 11/20/19 09:00 11/23/19 08:38 Zoloft PO 12/20/19 08:59 75 mg QAM HERO Administration Tamsulosin HCl 0.4 mg 11/19/19 21:00 11/22/19 21:02 Flomax PO 12/19/19 20:59 0.4 mg HS HERO Administration Thiamine HCl 100 mg 11/20/19 09:00 11/23/19 08:35 Vitamin B-1 PO 12/20/19 08:59 100 mg QAM HERO Administration Umeclidinium/Vilanterol 1 puffs 11/19/19 21:00 11/22/19 21:01 Anoro Ellipta 62.5/25 Mcg Inh INH 12/19/19 20:59 1 puffs HS HERO Administration Vitamin D 2,000 units 11/20/19 09:00 11/23/19 08:37 Vitamin D3 PO 12/20/19 08:59 2,000 units QAM HERO Administration Zinc Sulfate 220 mg 11/20/19 09:00 11/23/19 08:39 Zinc Sulfate PO 12/20/19 08:59 220 mg QAM HERO Administration NPO Date Last Intake of Fluids: 11/22/19 Time Last Intake of Fluids: 23:59 Date Last Intake of Solids: 11/22/19 Time Last Intake of Solids: 23:59 Past Medical History Medical History Acute UTI (Inactive) Anemia (Inactive) Chronic systolic CHF (congestive heart failure) CKD (chronic kidney disease) stage 3, GFR 30-59 ml/min CKD (chronic kidney disease), stage III (Acute) Generalized weakness (Inactive) H/O blood clots (Chronic) Hip fracture (Resolved) HLD (hyperlipidemia) (Acute) HTN (hypertension) (Acute) Hydronephrosis (Acute) Hydroureter, left (Acute) Hyponatremia (Acute) Prostate cancer (Chronic) Urinary retention (Acute) Past Family History Family History Brother Pancreatic cancer Other Family history non-contributory Past Surgical History Surgical History History of coronary artery stent placement (Chronic) History of coronary artery stent placement (Acute) History of left hip replacement (Acute) S/P knee replacement Status post cardiac surgery Social History Smoking Status: Never smoker Smoking cigarettes per day: 20 Hx Alcohol Use: Yes alcohol intake frequency: holidays/special occasions only Hx Substance Use: No substance use type: does not use Physical Exam Vital Signs Last Vital Signs Temp 36.3 C L 11/23/19 07:20 Pulse 62 11/23/19 08:41 Resp 18 11/23/19 07:20 BP 171/87 H 11/23/19 08:41 Pulse Ox 97 11/23/19 07:20 Testing Laboratory Results 11/23/19 04:47 11/23/19 04:47 PT 11.9 Seconds (9.0-12.0) 11/19/19 12:38 INR 1.1 (0.9-1.1) 11/19/19 12:38 Urine Color Yellow 11/19/19 21: Urine Appearance Cloudy (Clear) A 11/19/19 21: Urine pH 5.0 (4.5-7.5) 11/19/19 21:23 Ur Specific [place] 1.017 (1.000-1.030) 11/19/19 21:23 Urine Protein Negative (Negative) 11/19/19 21:23 Urine Glucose (UA) Negative (Negative) 11/19/19 21:23 Urine Ketones Negative (Negative) 11/19/19 21: Urine Nitrite Negative (Negative) 11/19/19 21:23 Ur Leukocyte Esterase 2+ (Negative) H 11/19/19 21:23 Urine WBC (Auto) 1-5 /hpf (0-5) 11/19/19 21:23 Urine RBC (Auto) 5-10 /hpf (0-4) H 11/19/19 21:23 U Hyaline Cast (Auto) 5-10 /lpf (0-5) H 11/19/19 21:23 U Epithel Cells (Auto) >30 /lpf (0-5) H 11/19/19 21:23 Urine Bacteria (Auto) Negative (Negative) 11/19/19 21:23
[2019-11-23] MEDS ORDERED: LIDOCAINE HCL 2% 2 ML VIAL/AMP(20MG/ML) INFIL ONE (15:25)
[2019-11-23] MEDS ORDERED: PROPOFOL IV EMULSION 10 MG/ML 20 ML VIAL IV ONE (15:25)
--- NOTE | 2019-11-23 16:02 | GI REPORT ---
Patient Name: Yaya Lan Procedure Date: 11/23/2019 3:10 PM Date of : 1935 Admit Type: Inpatient Age: 83 Gender: Male Attending MD: Benito Cole DO Procedure: Upper GI endoscopy Providers: Benito Cole DO Referring MD: Bernardino Vargas M.d. Indications: Dysphagia, Failure to thrive Medicines: Monitored Anesthesia Care Complications: No immediate complications. Estimated Blood Loss: Estimated blood loss: none. Procedure: Pre-Anesthesia Assessment: - Prior to the procedure, a History and Physical was performed, and patient medications and allergies were reviewed. The patient's tolerance of previous anesthesia was also reviewed. The risks and benefits of the procedure and the sedation options and risks were discussed with the patient. All questions were answered, and informed consent was obtained. Prior Anticoagulants: The patient last took aspirin 1 day prior to the procedure and last took heparin on the day of the procedure. ASA Grade Assessment: IV - A patient with severe systemic disease that is a constant threat to life. After reviewing the risks and benefits, the patient was deemed in satisfactory condition to undergo the procedure. After obtaining informed consent, the endoscope was passed under direct vision. Throughout the procedure, the patient's blood pressure, pulse, and oxygen saturations were monitored continuously. The Endoscope was introduced through the mouth, and advanced to the second part of duodenum. The upper GI endoscopy was accomplished without difficulty. The patient tolerated the procedure well. Findings: A moderate Schatzki ring was found in the distal esophagus. A TTS dilator was passed through the scope. Dilation with a 15-16.5-18 mm balloon and an 18-19-20 mm balloon dilator was performed to 20 mm. The dilation site was examined and showed moderate improvement in luminal narrowing. A small hiatal hernia was present. Localized moderate inflammation characterized by erosions and erythema was found in the gastric antrum. Biopsies were taken with a cold forceps for histology. The examined duodenum was normal. Impression: - Moderate Schatzki ring. Dilated. - Small hiatal hernia. - Gastritis. Biopsied. - Normal examined duodenum. Recommendation: - Resume previous diet. - Continue present medications. - Await pathology results. - Return to primary care physician as previously scheduled. Benito Cole DO 11/23/2019 4:02:10 PM This report has been signed electronically. Note Initiated On: 11/23/2019 3:10 PM Number of Addenda: 0 I attest to the content of the Intraoperative Record and orders documented therein, exceptions below {[id number]}
--- NOTE | 2019-11-23 16:18 | Anesthesiology Progress Note ---
Date of Service November 23, 2019 Anesthesia Post Procedure Vital Signs Vital Signs: Temp Pulse Pulse Resp BP BP Pulse Ox 11/23/19 16:08 58 L 16 164/75 H 96 11/23/19 15:53 58 L 15 170/95 H 100 11/23/19 14:45 36.8 C 54 L 18 176/82 H 176/82 H 96 11/23/19 08:41 62 171/87 H 11/23/19 07:20 36.3 C L 57 L 18 179/75 H 97 11/22/19 23:05 36.2 C L 74 18 117/68 94 Pain Intensity Generalized: Pain Intensity: 0 Transfer of Care Handoff Completed per policy Notes Mental Status: alert / awake / arousable and participated in evaluation Patient Amnestic to Procedure: Yes Nausea / Vomiting: adequately controlled Pain: adequately controlled Airway Patency, RR, SpO2: stable & adequate BP & HR: stable & adequate Hydration State: stable & adequate Anesthetic Complications: no major complications apparent
[2019-11-23] MEDS: PANTOprazole 40 MG TAB PO SCH (21:04)
[2019-11-23] MEDS: CYANOCOBALAMIN 500 MCG TABLET (VITAMIN B-12) PO SCH (21:04)
[2019-11-23] MEDS: TAMSULOSIN HCL 0.4 MG CAP PO SCH (21:05)
[2019-11-23] MEDS: CETIRIZINE HCL 10 MG TABLET PO SCH (21:05)
[2019-11-23] MEDS: UMECLIDINIUM/VILANTEROL 62.5/25MCG 7 PUFFS/INHALER INH SCH (21:06)
--- NOTE | 2019-11-23 22:50 | Hospitalist Progress Note ---
Date of Service November 23, 2019 Assessment & Plan (1) Adult failure to thrive: Unclear if just general progression of chronic disease including his malignant prostate cancer with loss of appetite vs. more acute reversible pathology. - Ddx includes GI issue (CT notes duodenitis) vs. cancer vs. medications. 1) Will get EGD on Saturday for duodenal investigation. TTg pending for celiac disease. 2) Probably substantially affected by his Zytiga. It can cause adrenal ins ufficiency, and his cortisol was 2.[address] Patiño's approval, stopped Zytiga and increased prednisone to 10 mg PO BIDM. Feeling much better already. -> Stable today. Will get EGD today with Dr. Gregory and possibly back to assisted living on Saturday. Did decline to work with PT, so may need to encourge that. (2) Loss of appetite: This appears to be the predominating symptom, therefore causing his weight loss. - As above (3) Oropharyngeal dysphagia: Patient reporting occasional food getting stuck in throat. - [employer] eval went well. He is now on minced and moist diet. (4) Physical deconditioning: As a result of failure to thrive. - PT/OT -> [facility] SN[facility]. PT pending as he refused on Saturday. (5) Prostate cancer: PSA was 31 this admission; up from 20 in 03/2019 that has been pretty consistent prior to that. - Will need to follow up outpatient to discuss restarting Zytiga and further surveillance. (6) Urinary retention: History of this suspect secondary to prostate ca. +/- radiation therapy. Tamsulosin or finasteride on hold for hypotension as per med list but unclear when this was stopped. - Given risk of recurrence of this and history of UTIs will restart both - Bladder scan Qshift - call physician if > 300ml -> No major retention so far. Most bladder scans ~150 mL. (7) CAD (coronary artery disease): 1vCABG in 2008. No chest pain noted. - ASA 81mg PO daily - Carvedilol on hold due to bradycardia and hypotension in the last day or two - Now that BP normal on prednisone; will restart carvedilol. Home dose is 6.25 mg PO BID. - Was on fenofibrate in the past (per cardiology note from 04/2019) (8) Chronic systolic CHF (congestive heart failure): Echo on 11/19 showed EF 65-70%. So, actually his heart must have recovered and now no longer systolic dysfunction. - Weight is presently 65 kg today which I think is a good dry weight for him. - Lasix presently on hold for hypotension prior to admission. Will monitor volume status. (9) CKD (chronic kidney disease) stage 3, GFR 30-59 ml/min: At baseline, Cr. ~1.4. Vitamin D was 35 this admission. - Monitor; Cr presently at baseline. (10) DVT prophylaxis: Does have a prior history of DVT. - Heparin 5000 units SQ BID Possible discharge on 11/24/19 Admission and Anticipated Discharge Date Admission Date: November 19, 2019 Subjective 83 yo male reports no new symptoms today. Awaiting EGD. Review of Systems Respiratory: + cough (chronic, no worse than usual) and + dyspnea on exertion (more general fatigue but also SOB); no pain on inspiration and no wheezing Cardiovascular: no chest pain Gastrointestinal: + dysphagia (as above) and + change in bowel habits (frequently switch from diarrhea to constipation); no abdominal pain, no coffee ground emesis, no excessive flatulence and no blood in stools Musculoskeletal: + muscle weakness and + muscle atrophy; no back pain, no neck pain, no radicular pain, no joint pain, no myalgia and no body aches Neurologic: + unsteadiness, + generalized weakness and + lack of coordination; no localized weakness, no loss of sensation, no numbness, no paresthesia, no tremor(s), no restless legs and no syncope Physical Exam Physical Exam: Constitutional: WD/WN, vitals as above Eyes: EOM intact bilaterally; no conjunctival abnormality ENMT: external ear and nose normal, oropharynx normal Neck: trachea midline, no thyromegaly normal visual inspection Respiratory: normal respiratory effort, lungs clear to auscultation no respiratory distress Cardiovascular: RRR, no murmur, no edema Gastrointestinal (Abdomen): Inspection/Auscultation: abdomen normal to inspection; abdomen not distended Musculoskeletal: no cyanosis or clubbing, extremities motor strength 5/5 Skin: no rashes, warm and dry Neurologic: moves all extremities and awake Psychiatric: Orientation: alert, oriented to person and cooperative Results & Data Results & Data ([facility]) Vital Signs (Past 12 Hours) Vital Signs Temp Pulse Pulse Resp BP BP Pulse Ox 11/23/19 19:28 36.4 C L 66 18 136/74 98 11/23/19 16:42 36.3 C L 57 L 16 189/78 H 97 11/23/19 16:23 55 L 16 166/85 H 98 11/23/19 16:08 58 L 16 164/75 H 96 11/23/19 15:53 58 L 15 170/95 H 100 11/23/19 14:45 36.8 C 54 L 18 176/82 H 176/82 H 96 PG Care Time/CCT Total # of Minutes Spent Total Time Spent with Patient: Total time spent is greater than 50% in coordination of care (as documented) at patient's floor/unit and/or counseling patient: Coding Level of Care Code 53939 Subseq Hosp Care Lvl 3 Diagnoses Adult failure to thrive R62.7 Loss of appetite R63.0 Oropharyngeal dysphagia R13.12 Physical deconditioning R53.81 Prostate cancer C61 Urinary retention R33.9 CAD (coronary artery disease) I25.10 Chronic systolic CHF (congestive heart failure) I50.22 CKD (chronic kidney disease) stage 3, GFR 30-59 ml/min N18.3 DVT prophylaxis Z29.9
[2019-11-24] MEDS: HEPARIN SOD 5,000 UNIT/0.5 ML VIAL SQ SCH ×2 (09:16→20:29)
[2019-11-24] MEDS: predniSONE 10 MG TABLET PO SCH ×2 (09:19→16:49)
[2019-11-24] MEDS: FAMOTIDINE 20 MG TAB PO SCH (09:20)
[2019-11-24] MEDS: PANTOprazole 40 MG TAB PO SCH ×2 (09:21→20:25)
[2019-11-24] MEDS: FINASTERIDE 5 MG TAB PO SCH (09:21)
[2019-11-24] MEDS: MULTIVITAMIN TAB PO SCH (09:21)
[2019-11-24] MEDS: FERROUS SULFATE 325 MG TAB PO SCH ×2 (09:22→20:23)
[2019-11-24] MEDS: SERTRALINE HCL 50 MG TABLET PO SCH (09:22)
[2019-11-24] MEDS: THIAMINE HCL 100 MG TAB PO SCH (09:24)
[2019-11-24] MEDS: CHOLECALCIFEROL 1,000 UNITS 25 MCG TAB PO SCH (09:24)
[2019-11-24] MEDS: ZINC SULFATE 220 MG CAPSULE PO SCH (09:24)
[2019-11-24] MEDS: PSYLLIUM 58.6% POWDER PACKET PO SCH ×2 (09:28→20:32)
[2019-11-24] MEDS: carvediloL 6.25 MG TAB PO SCH ×2 (09:35→20:19)
[2019-11-24] MEDS: UMECLIDINIUM/VILANTEROL 62.5/25MCG 7 PUFFS/INHALER INH SCH (20:21)
[2019-11-24] MEDS: TAMSULOSIN HCL 0.4 MG CAP PO SCH (20:24)
[2019-11-24] MEDS: CETIRIZINE HCL 10 MG TABLET PO SCH (20:26)
[2019-11-24] MEDS: CYANOCOBALAMIN 500 MCG TABLET (VITAMIN B-12) PO SCH (20:26)
--- NOTE | 2019-11-24 22:18 | Hospitalist Progress Note ---
Date of Service November 24, 2019 Assessment & Plan (1) Adult failure to thrive: Unclear if just general progression of chronic disease including his malignant prostate cancer with loss of appetite vs. more acute reversible pathology. - Ddx includes GI issue (CT notes duodenitis) vs. cancer vs. medications. 1) WEGD completed 2) Probably substantially affected by his Zytiga. It can cause adrenal insufficiency, and his cortisol was 2.[address] Patiño's approval, stopped Zytiga and increased prednisone to 10 mg PO BIDM. Feeling much better already. -> Stable today. showed contrciting ring in distal esophagus: this was dilated. (2) Loss of appetite: This appears to be the predominating symptom, therefore causing his weight loss. - As above (3) Oropharyngeal dysphagia: Patient reporting occasional food getting stuck in throat. - [employer] eval went well. He is now on minced and moist diet. (4) Physical deconditioning: As a result of failure to thrive. - PT/OT -> [facility]. Family decided on hospice. (5) Prostate cancer: PSA was 31 this admission; up from 20 in 03/2019 that has been pretty consistent prior to that. - Will need to follow up outpatient to discuss restarting Zytiga and further surveillance. (6) Urinary retention: History of this suspect secondary to prostate ca. +/- radiation therapy. Tamsulosin or finasteride on hold for hypotension as per med list but unclear when this was stopped. - Given risk of recurrence of this and history of UTIs will restart both - Bladder scan Qshift - call physician if > 300ml -> No major retention so far. Most bladder scans ~150 mL. (7) CAD (coronary artery disease): 1vCABG in 2008. No chest pain noted. - ASA 81mg PO daily - Carvedilol on hold due to bradycardia and hypotension in the last day or two - Now that BP normal on prednisone; will restart carvedilol. Home dose is 6.25 mg PO BID. - Was on fenofibrate in the past (per cardiology note from 04/2019) (8) Chronic systolic CHF (congestive heart failure): Echo on 11/19 showed EF 65-70%. So, actually his heart must have recovered and now no longer systolic dysfunction. - Weight is presently 65 kg today which I think is a good dry weight for him. - Lasix presently on hold for hypotension prior to admission. Will monitor volume status. (9) CKD (chronic kidney disease) stage 3, GFR 30-59 ml/min: At baseline, Cr. ~1.4. Vitamin D was 35 this admission. - Monitor; Cr presently at baseline. (10) DVT prophylaxis: Does have a prior history of DVT. - Heparin 5000 units SQ BID Possible discharge on 11/25/19 on hospice. Admission and Anticipated Discharge Date Admission Date: November 19, 2019 Subjective 83 yo male reports having no new symptoms. Review of Systems Review of Systems: All systems reviewed & are unremarkable except as noted in HPI & below Physical Exam Physical Exam: Constitutional: WD/WN, vitals as above Eyes: EOM intact bilaterally; no conjunctival abnormality ENMT: external ear and nose normal, oropharynx normal Neck: trachea midline, no thyromegaly normal visual inspection Respiratory: normal respiratory effort, lungs clear to auscultation no respiratory distress Cardiovascular: RRR, no murmur, no edema Gastrointestinal (Abdomen): Inspection/Auscultation: abdomen normal to inspection; abdomen not distended Musculoskeletal: no cyanosis or clubbing, extremities motor strength 5/5 Skin: no rashes, warm and dry Neurologic: moves all extremities and awake Psychiatric: Orientation: alert, oriented to person and cooperative Results & Data Results & Data ([facility]) Vital Signs (Past 12 Hours) Vital Signs Temp Pulse Resp BP BP Pulse Ox 11/24/19 20:17 56 L 16 136/70 11/24/19 17:57 36.5 C 58 L 18 159/75 H 97 PG Care Time/CCT Total # of Minutes Spent Total Time Spent with Patient: Total time spent is greater than 50% in coordination of care (as documented) at patient's floor/unit and/or counseling patient: Coding Level of Care Code 18929 Subseq Hosp Care Lvl 2 Diagnoses Adult failure to thrive R62.7 Loss of appetite R63.0 Oropharyngeal dysphagia R13.12 Physical deconditioning R53.81 Prostate cancer C61 Urinary retention R33.9 CAD (coronary artery disease) I25.10 Chronic systolic CHF (congestive heart failure) I50.22 CKD (chronic kidney disease) stage 3, GFR 30-59 ml/min N18.3 DVT prophylaxis Z29.9 Time Spent (min) 25
[2019-11-25 05:15] LABS: Hematocrit (blood only) 26.5 % (42-52); Mean Corpuscular Hemoglobin 31.7 pg (25-34); Mean Corpuscular Volume 93.3 fL (80-100); Mean Platelet Volume 10.1 fL (7.4-10.4); Platelet Count 227 K/uL (130-400); RDW Coefficient of Variation 15.6 % (11.5-14.5); RDW Standard Deviation 53.2 fL (36.4-46.3); Red Blood Count 2.84 M/uL (4.7-6.1); White Blood Count 9.44 K/uL (4.8-10.8)
[2019-11-25] MEDS: predniSONE 10 MG TABLET PO SCH (07:41)
[2019-11-25] MEDS: THIAMINE HCL 100 MG TAB PO SCH (09:32)
[2019-11-25] MEDS: FERROUS SULFATE 325 MG TAB PO SCH (09:33)
[2019-11-25] MEDS: SERTRALINE HCL 50 MG TABLET PO SCH (09:33)
[2019-11-25] MEDS: PANTOprazole 40 MG TAB PO SCH (09:33)
[2019-11-25] MEDS: PSYLLIUM 58.6% POWDER PACKET PO SCH (09:34)
[2019-11-25] MEDS: CHOLECALCIFEROL 1,000 UNITS 25 MCG TAB PO SCH (09:34)
[2019-11-25] MEDS: ZINC SULFATE 220 MG CAPSULE PO SCH (09:34)
[2019-11-25] MEDS: MULTIVITAMIN TAB PO SCH (09:35)
[2019-11-25] MEDS: FAMOTIDINE 20 MG TAB PO SCH (09:35)
[2019-11-25] MEDS: FINASTERIDE 5 MG TAB PO SCH (09:35)
[2019-11-25] MEDS: HEPARIN SOD 5,000 UNIT/0.5 ML VIAL SQ SCH (09:36)
[2019-11-25] MEDS: carvediloL 6.25 MG TAB PO SCH (09:43)
[2019-11-26 11:29] LABS: Transglutaminase, Tissue IgA 1 U/mL
--- NOTE | 2019-12-02 00:10 | Discharge Summary ---
Date of Service November 25, 2019 Admission HPI Per Admitting Provider Yaya Lan is an 83 year old male with known malignant prostate cancer who presents to the ER at the advice of his PCP for progressive fatigue, low appetite, diarrhea. Difficult to get history from the patient and his son to what symptoms are chronic and what is more acute. Appears to be a slow progressive decline over time many months involving multiple falls, UTIs, loss of appetite, alternating diarrhea and constipation but with a sudden worsening over the last 4 weeks to the point he is no longer able to walk to the bathroom without assistance. He is unable to relate this decline to any changes of his medication. Known prostate cancer malignancy since the treated with radiation (presumed external), currently on lupron and Zytiga but unknown duration of these medications. He notes occasional incontinence at night but not change in this for many months. He has chronic bronchitis for which he takes Trilegy Elipta under Dr Hopson - this is no worse than usual. No shortness of breath, chest pain, dysuria, fever, chills. Summary of prior notes in EHR: 02/2017 hospitalization for fatigue, nausea and vomiting, hyponatremia and increased Cr - felt possibly fatigue secondary to dehydration with low appetite ?due to ketoconazole. He was not recorded to be on Zytiga at that time. He was taking tamsulosin and finasteride. 08/2017 hospitalization for falls, confusion and lethargy. Diagnosed with C itrobacter koseri UTI. CT A/P at that time showing mild fullness of the renal collecting systems and ureters b/l of uncertain significance. Pt on cymbalta at that time. Taking warfarin for history of remote DVT 2006. Zytiga noted on home med list ?started at this time. 08/2028 Underwent bronchoscopy due to chronic congestion. 12/2018 Treated for UTI in ER Multiple notes regarding falls after this Followed up at his clinic appointment today advised to hold his BP medications (unclear if handwriting on his med list is from his PCP or Nalini) Principal Diagnosis 35 Discharge Exam Constitutional: WD/WN, vitals as above Eyes: EOM intact bilaterally; no conjunctival abnormality ENMT: external ear and nose normal, oropharynx normal Neck: trachea midline, no thyromegaly normal visual inspection Respiratory: normal respiratory effort, lungs clear to auscultation no respiratory distress Cardiovascular: RRR, no murmur, no edema Gastrointestinal (Abdomen): Inspection/Auscultation: abdomen normal to inspection; abdomen not distended Musculoskeletal: no cyanosis or clubbing, extremities motor strength 5/5 Skin: no rashes, warm and dry Neurologic: moves all extremities and awake Psychiatric: Orientation: alert, oriented to person and cooperative Discharge Data Allergies Allergy/AdvReac Type Severity Reaction Status Date / Time No Known Allergies Allergy Verified 11/19/19 12:06 Consultations 11/19/19 14:11 ED Decision to Admit Stat 11/19/19 16:35 Consult Health Information Management Routine 11/19/19 16:40 Consult Health Information Management Routine 11/19/19 20:33 Consult Gastroenterology Routine 11/19/19 21:17 Consult Health Information Management Routine 11/20/19 00:11 Consult Oncology Routine Procedures Performed Operation Date: 11/20/19 16:30 <No data on this case meets the specified criteria> Operation Date: 11/23/19 15:30 Actual Procedures p EGD Biopsy Dilatation - Benito GPooja Case, DO Ordered Studies 11/19/19 16:29 CT abd pelvis oral and IV con Routine CT chest w con Routine Hospital Course (1) Adult failure to thrive: severe protein-calorie malnutrition likely secondary to esophageal ring. will continue with nutrition and prednisone - Ddx includes GI issue (CT notes duodenitis) vs. cancer vs. medications. 1) WEGD completed 2) Probably substantially affected by his Zytiga. It can cause adrenal insufficiency, and his cortisol was 2.[address] Patiño's approval, stopped Zytiga and increased prednisone to 10 mg PO BIDM. Patient felt improvement. -> Stable today. showed constricting ring in distal esophagus: this was dilated. (2) Loss of appetite: This appears to be the predominating symptom, therefore causing his weight loss. - As above (3) Oropharyngeal dysphagia: Patient reporting occasional food getting stuck in throat. - G[employer] evhaider went well. He is now on minced and moist diet. (4) Physical deconditioning: As a result of failure to thrive. - PT/OT -> OT says [facility] vs. SNF. Family decided on hospice. (5) Prostate cancer: PSA was 31 this admission; up from 20 in 03/2019 that has been pretty con sistent prior to that. - Will need to follow up outpatient to discuss restarting Zytiga and further surveillance. (6) Urinary retention: History of this suspect secondary to prostate ca. +/- radiation therapy. Tamsulosin or finasteride on hold for hypotension as per med list but unclear when this was stopped. - Given risk of recurrence of this and history of UTIs will restart both - Bladder scan Qshift - call physician if > 300ml -> No major retention so far. Most bladder scans ~150 mL. (7) CAD (coronary artery disease): 1vCABG in 2008. No chest pain noted. - ASA 81mg PO daily - Carvedilol on hold due to bradycardia and hypotension in the last day or two - Now that BP normal on prednisone; will restart carvedilol. Home dose is 6.25 mg PO BID. - Was on fenofibrate in the past (per cardiology note from 04/2019) (8) Chronic systolic CHF (congestive heart failure): Echo on 11/19 showed EF 65-70%. So, actually his heart must have recovered and now no longer systolic dysfunction. - Weight is presently 65 kg today which I think is a good dry weight for him. - Lasix presently on hold for hypotension prior to admission. Will monitor volume status. (9) CKD (chronic kidney disease) stage 3, GFR 30-59 ml/min: At baseline, Cr. ~1.4. Vitamin D was 35 this admission. - Monitor; Cr presently at baseline. (10) DVT prophylaxis: Does have a prior history of DVT. - Heparin 5000 units SQ BID Possible to be discharged on 11/25/19 on hospice. Total Time Total Time Spent Total Time Spent (In Minutes): 35 Total Time Includes: Examination of the Patient, Discharge Planning and Medication Reconciliation Discharge Plan Discharge Items Patient Disposition: Personal [facility] Reason For Visit: GENERALIZED DECONDITIONING Discharge Diagnosis: Generalized deconditioning Activity: Resume your previous activity Non-emergency contact: Primary Care Provider Call non-emergency contact if: you have any medication questions Follow-up/Referrals: Bhumi Hoskins MD [Primary Care Provider] - Diet: Regular Diet Comment: minced and moist Addtl Attending Provider Instructions: being disharged on hospice Pending Studies at Discharge: No Stand-Alone Forms: My [facility] [place], Smoking Cessation Skilled Items Patient informed of condition?: No DNR: No Discharge Level of Care: Skilled Communicable Disease: No Discharge Prognosis: Stable Lines: None Urinary Catheter: No Medications and DC Order Prescriptions: New prednisone 10 mg Tablet 10 mg PO BIDM Qty: 60 RF: 0 thiamine HCl (vitamin B1) [Vitamin B-1] 100 mg Tablet 100 mg PO QAM Qty: 30 RF: 0 famotidine 20 mg Tablet 20 mg PO QAM Qty: 30 RF: 0 pantoprazole 40 mg Tablet,Delayed Release (Dr/Ec) 40 mg PO BID Qty: 60 RF: 0 zinc sulfate [Orazinc] 220 (50) mg Capsule 220 mg PO QAM Qty: 30 RF: 0 ipratropium-albuterol 0.5 mg-3 mg(2.5 mg base)/3 mL solution for nebulization 3 ml INH Q8H PRN (Reason: wheezing) Qty: 15 RF: 0 Continued multivitamin [Daily-Thalia] Tablet 1 tab PO QAM Qty: 0 RF: 0 ferrous sulfate 325 mg (65 mg iron) Tablet 325 mg PO BID Qty: 0 RF: 0 cyanocobalamin (vitamin B-12) 1,000 mcg Tablet, Sublingual 1,000 mcg SUBLINGUAL HS Qty: 0 RF: 0 cholecalciferol (vitamin D3) 2,000 unit Tablet 2,000 unit PO QAM Qty: 0 RF: 0 nitroglycerin [Nitrostat] 0.4 mg Tablet, Sublingual 0.4 mg Sublingual DIRECTED PRN (Reason: Chest Pain) Qty: 0 RF: 0 ciclopirox 0.77 % gel 1 applic TOPICAL BID PRN (Reason: FUNGAL INFECTION) Qty: 45 RF: 2 Trelegy Ellipta 100-62.5-25 mcg blister with device 1 inh INHALATION HS Qty: 28 RF: 3 Ensure Liquid 1 ea PO BID Qty: 237 RF: 0 Hold Instructions: ?diarrhea Mucinex DM 30-600 mg tablet extended release 12 hr 1 tab PO Q12H Qty: 60 RF: 0 ketotifen fumarate [Zaditor] 0.025 % (0.035 %) drops 1 drops OP BID Qty: 5 RF: 0 Metamucil Fiber Singles 3.4 gram powder in packet 1 packet PO QAM RF: 0 lidocaine [Salonpas (lidocaine)] 4 % adhesive patch,medicated 1 patch TOP DAILY PRN (Reason: pain) Qty: 10 RF: 0 Triple Antibiotic 3.5-400-5,000 [id number]-cmom aerosol,spray See Rx Instructions TOP .COMPLEX Qty: 56 RF: 0 buspirone 5 mg tablet 5 mg PO TID RF: 0 cetirizine [Zyrtec] 10 mg Tablet 10 mg PO HS RF: 0 acetaminophen [Tylenol Extra Strength] 500 mg Tablet 500 mg PO Q8 MDD 3 GRAMS/24 HOURS. PRN (Reason: Fever Or Pain) RF: 0 calcium carbonate [Tums] 200 mg calcium (500 mg) Tablet,Chewable 200 mg PO DIRECTED PRN (Reason: Indigestion) RF: 0 sertraline 50 mg Tablet 50 mg PO QAM RF: 0 Gentamicin 2 spray DANNIELLE TID RF: 0 carvedilol 6.25 mg Tablet 6.25 mg PO BID RF: 0 tamsulosin 0.4 mg capsule 0.4 mg PO HS RF: 0 finasteride 5 mg Tablet 5 mg PO DAILY RF: 0 Discontinued Zytiga 500 mg Tablet 1,000 mg PO QAM Qty: 0 RF: 0 ipratropium-albuterol 0.5 mg-3 mg(2.5 mg base)/3 mL solution for nebulization 3 ml INH BID Qty: 180 RF: 0 prednisone 2.5 mg Tablet 2.5 mg PO BIDM RF: 0 aspirin [Aspir-81] 81 mg Tablet,Delayed Release (Dr/Ec) 81 mg PO DAILY RF: 0 furosemide 20 mg Tablet 10 mg PO 3XWK RF: 0 Discharge Orders: Discharge Order (Routine); Ordered 11/25/19 Ordered By: Bernardino Gallego/Other Patient Handouts: What Is Hospice?, ED Urinary Retention, Male Admission Data Admit Date/Time: 11/19/19 14:48 Attending Provider: Bernardino Vargas Admit Provider: David Mann Primary Care Provider: Bhumi Hoskins V. Other Providers: Benito Cole ; Chaparro Mahan ; Stephon Garcia Other Interventions: Discharge Summary Assessment (RN) Last Done: 11/25/19 10:05 DC Date/Time DO NOT enter until pt leaves facility: 11/25/19 10:53 Coding Level of Care Code D/C Day Management >30 mins Diagnoses Adult failure to thrive R62.7 Loss of appetite R63.0 Oropharyngeal dysphagia R13.12 Physical deconditioning R53.81 Prostate cancer C61 Urinary retention R33.9 CAD (coronary artery disease) I25.10 Chronic systolic CHF (congestive heart failure) I50.22 CKD (chronic kidney disease) stage 3, GFR 30-59 ml/min N18.3 DVT prophylaxis Z29.9 Time Spent (min) 35
== END 2019-11-25 10:53 | disposition home or self-care (01) | DRG 640 ==
LOC: ED 11:28 → 3N 14:48 → SUATTDRO 14:48 → 3N 16:11